=== PATIENT | female | born 1975 | race Caucasian/White ===

== ENCOUNTER → 2016-07-09 | Outpatient (CLI) | payer MEDICARE, OTHER | END | disposition home or self-care (01) | DX: Z53.9 Procedure and treatment not carried out, unspecified reason (principal) ==

== ENCOUNTER → 2016-07-10 | Outpatient (CLI) | payer MEDICARE, OTHER ==
[2016-07-10 11:46] LABS: ALT 28 U/L (9-52); AST 13 U/L (14-36); Alkaline Phosphatase 41 U/L (38-126); Anion Gap 12 mmol/L; Blood Urea Nitrogen 9 mg/dL (7-17); Carbamazepine (Tegretol) <3.0 ug/mL; Carbon Dioxide 25 mmol/L (22-30); Chloride 107 mmol/L (98-107); Glucose 96 mg/dL (74-99); Non-African American GFR(MDRD) >60 (>60 ml/min/1.73 sqM); Potassium 4.1 mmol/L (3.5-5.1); Sodium 144 mmol/L (137-145); Total Bilirubin 0.4 mg/dL (0.2-1.3); Total Protein 6.7 g/dL (6.3-8.2)
[2016-07-10 12:32] LABS: Vitamin B12 463 pg/mL (239-931)
== END | disposition home or self-care (01) ==
LOC: LABWHC1 11:03
PROVIDERS: ATTEND Nurse Practitioner Acute Care
DX: R56.9 Unspecified convulsions (principal); E55.9 Vitamin D deficiency, unspecified
CPT/HCPCS: 36415; 80053; 80156; 80201; 82306; 82607

== ENCOUNTER → 2016-09-23 | Outpatient (CLI) | payer MEDICARE, OTHER ==
--- NOTE | 2016-09-23 20:30 | MR ---
EXAMINATION TYPE: MR angio head wo con DATE OF EXAM: 09/23/2016 8:23 PM COMPARISON: NONE HISTORY: Left side weakness and numbness, tia Three-dimensional [id number] intracranial MRA was performed with multiple intensity projection im ages submitted and source data reviewed at the workstation. The vertebrobasilar system as well as intracranial portions of the internal carotid arteries and thei r major tributaries are patent. I do not see evidence for sizable aneurysm or vascular malformation. IMPRESSION: No distinct abnormality identified.
--- NOTE | 2016-09-23 21:23 | MR ---
PRE AND POSTCONTRAST ENHANCED MRI OF THE BRAIN: CLINICAL HISTORY: TIA symptoms CONTRAST: 20 ML Multihance COMPARISON: 02/11/2016 Multiplanar and multispin-echo imaging of the brain was performed both before and after the administr ation of contrast. The ventricles, basal cisterns and sulci overlying the cerebral convexities are within normal limits. There is no evidence for midline shift or mass effect. Acute intracranial hemorrhage or extra-axial collection is not evident. Stable cystic structure within the left insular cortex which may reflect remote insult. Following contrast administration, there is no evidence for pathologic enhancement or enhancing mass. The paranasal sinuses and mastoid air cells are well-aerated. IMPRESSION: Stable appearance of the brain without evidence for acute intracranial process at this time.
== END | disposition home or self-care (01) ==
LOC: RADMRIMAIN 19:37
PROVIDERS: ATTEND Family Medicine
DX: G45.9 Transient cerebral ischemic attack, unspecified (principal)
CPT/HCPCS: 70544; 70553; A9577

== ENCOUNTER 2016-10-21 13:51 | Observation (INO) | payer MEDICARE, OTHER ==
[2016-10-21] MEDS ORDERED: SODIUM CHLORIDE 0.9% 1,000 ML IV STA ×2 (13:59→14:07)
[2016-10-21] MEDS ORDERED: LORazepam 2 MG/ML SYRINGE IV STA (14:01)
--- NOTE | 2016-10-21 14:06 | ED ---
Seizure HPI - General Stated Complaint: Seizure Time Seen by Provider: 10/21/16 13:52 Source: RN notes reviewed, old records reviewed - History of Present Illness Initial Comments: This is a 41-year-old female history of CVA TIA seizure disorder who is brought in by family vehicle and found to be seizing apparently in the car was last about 2 minutes prior to arrival in the parking lot. Patient brought in immediately to room 15. She appeared to be acting post ictal she also then had an episode of what appeared to be seizure activity lasting about 1 minute with eyes rolling back twitching eyelids and sitting up in the extremities. The patient quickly woke up on over about 5 minutes. It was conversant afterwards. MD Complaint: seizure - Related Data Home Medications Medication Instructions Recorded Confirmed LORazepam [Ativan] 1 mg PO DAILY PRN 08/24/15 10/21/16 HYDROcodone/APAP 5-325MG [[place] 1 tab PO BID 02/02/16 10/21/16 5-325] Naproxen 500 mg PO BID PRN 02/02/16 10/21/16 Desvenlafaxine Succinate [Pristiq 50 mg PO DAILY 02/21/16 10/21/16 ER] Albuterol Sulfate [Ventolin Hfa] 2 puff INHALATION RT-QID PRN 10/21/16 10/21/16 Butalb/Asprin/Caff 50-325-40Mg 1 cap PO Q8H PRN 10/21/16 10/21/16 [Fiorinal 50-325-40 MG] Ergocalciferol [Vitamin D2] 50,000 unit PO Q7D 10/21/16 10/21/16 Lacosamide [Vimpat] 200 mg PO BID 10/21/16 10/21/16 OXcarbazepine [Trileptal] 600 mg PO BID 10/21/16 10/21/16 Topiramate [Topamax] 100 mg PO BID 10/21/16 10/21/16 Previous Rx's Medication Instructions Recorded Clopidogrel [Plavix] 75 mg PO DAILY #30 tab 02/24/16 Allergies Allergy/AdvReac Type Severity Reaction Status Date / Time adhesive Allergy Unknown Verified 04/26/16 22:14 aloe Allergy Unknown Verified 04/26/16 22:14 aloe vera Allergy Unknown Verified 04/26/16 22:14 carbetapentane Allergy Unknown Verified 04/26/16 22:14 castor oil Allergy Unknown Verified 04/26/16 22:14 citalopram hydrobromide Allergy Rash/Hives Verified 04/26/16 22:14 [From Celexa] diethylene glycol Allergy Unknown Verified 04/26/16 22:14 dimethicone Allergy Unknown Verified 04/26/16 22:14 grape Allergy Unknown Verified 04/26/16 22:14 Imidazole Alkylating Agents Allergy Unknown Verified 04/26/16 22:14 iodine Allergy Unknown Verified 04/26/16 22:14 Iodine and Iodide Containing Allergy Unknown Verified 04/26/16 22:14 Produc olive extract Allergy Unknown Verified 04/26/16 22:14 olive oil Allergy Unknown Verified 04/26/16 22:14 Penicillins Allergy Rash/Hives Verified 04/26/16 22:14 polyethylene glycol Allergy Unknown Verified 04/26/16 22:14 potassium Allergy Unknown Verified 04/26/16 22:14 propylene glycol Allergy Unknown Verified 04/26/16 22:14 silicone Allergy Unknown Verified 04/26/16 22:14 sorbitan sesquioleate Allergy Unknown Verified 04/26/16 22:14 [From Polysorb Hydrate] tioconazole Allergy Rash/Hives Verified 04/26/16 22:14 [From Monistat 1 (tioconazole)] vitamin E (d-alpha Allergy Unknown Verified 04/26/16 22:14 tocopherol) Review of Systems ROS Statement: Those systems with pertinent positive or pertinent negative responses have been documented in the HPI. ROS Other: All systems not noted in ROS Statement are negative. Past Medical History Past Medical History: Asthma, CVA/TIA, Fibromyalgia, Pneumonia, Seizure Disorder Additional Past Medical History / Comment(s): CHRONIC PAIN, UTI, HYPOGLYCEMIA, DDD, MIGARINES, PSEUDOSEIZURES History of Any Multi-Drug Resistant Organisms: None Reported Past Surgical History: Tubal Ligation Additional Past Surgical History / Comment(s): RT OVARIAN CYST REMOVED 1993 Past Anesthesia/Blood Transfusion Reactions: No Reported Reaction Additional Past Anesthesia/Blood Transfusion Reaction / Comment(s): CLAUSTERPHOBIA Past Psychological History: Anxiety, Bipolar, Depression Smoking Status: Current every day smoker Past Alcohol Use History: Rare Additional Past Alcohol Use History / Comment(s): STARTED SMOKING AT AGE 13, ROLLS HER OWN STATED SMOKES THE EQUIVALENT OF 1.5 TO 2 PPD Past Drug Use History: None Reported - Past Family History Father Family Medical History: CVA/TIA Mother Family Medical History: Hypertension, Seizure Disorder Additional Family Medical History / Comment(s): HEART PROBLEMS, DEPRESSION General Exam - General Exam Comments Initial Comments: This is a well-developed well-nourished female who was upon my exam was apparently seizing Limitations: altered mental status, physical limitation General appearance: obtunded Head exam: Present: atraumatic, normocephalic, normal inspection Eye exam: Present: normal appearance, PERRL, EOMI. Absent: scleral icterus, conjunctival injection, periorbital swelling ENT exam: Present: normal exam, mucous membranes moist Neck exam: Present: normal inspection. Absent: tenderness, meningismus, lymphadenopathy Respiratory exam: Present: normal lung sounds bilaterally. Absent: respiratory distress, wheezes, rales, rhonchi, stridor Cardiovascular Exam: Present: regular rate, normal rhythm, normal heart sounds. Absent: systolic murmur, diastolic murmur, rubs, gallop, clicks GI/Abdominal exam: Present: soft, normal bowel sounds. Absent: distended, tenderness, guarding, rebound, rigid Extremities exam: Present: normal inspection, full ROM, normal capillary refill. Absent: tenderness, pedal edema, joint swelling, calf tenderness Back exam: Present: normal inspection Neurological exam: Present: alert, altered, CN II-XII intact, other (Seizure activity) Psychiatric exam: Present: normal affect, normal mood Skin exam: Present: warm, dry, intact, normal color. Absent: rash Course Vital Signs 10/21/16 10/21/16 10/21/16 14:03 15:26 16:00 Temperature 98.8 F Pulse Rate 82 99 96 Respiratory 20 18 16 Rate Blood Pressure 139/72 96/54 96/54 O2 Sat by Pulse 100 98 99 Oximetry - Reevaluation(s) Reevaluation #1: 10/21/16 16:57 Patient is awake alert but lethargic. Medical Decision Making - Medical Decision Making I did discuss findings with patient and family members patient will be admitted with neurology consultation the patient does prefer Dr. Davis if possible. - Lab Data Result diagrams: 10/21/16 14:00 10/21/16 14:00 Lab Results 05/10/21/16 10/21/16 Range/Units 14:00 14:00 14:30 WBC 9.5 (3.8-10.6) k/uL RBC 4.77 (3.80-5.40) m/uL Hgb 14.6 (11.4-16.0) gm/dL Hct 44.2 (34.0-46.0) % MCV 92.6 (80.0-100.0) fL MCH 30.6 (25.0-35.0) pg MCHC 33.0 (31.0-37.0) g/dL RDW 13.3 (11.5-15.5) % Plt Count 264 (150-450) k/uL Neutrophils % 68 % Lymphocytes % 26 % Monocytes % 4 % Eosinophils % 1 % Basophils % 0 % Neutrophils # 6.4 (1.3-7.7) k/uL Lymphocytes # 2.5 (1.0-4.8) k/uL Monocytes # 0.4 (0-1.0) k/uL Eosinophils # 0.1 (0-0.7) k/uL Basophils # 0.0 (0-0.2) k/uL Sodium 139 (137-145) mmol/L Potassium 3.9 (3.5-5.1) mmol/L Chloride 108 H (98-107) mmol/L Carbon Dioxide 23 (22-30) mmol/L Anion Gap 8 mmol/L BUN 7 (7-17) mg/dL Creatinine 0.66 (0.52-1.04) mg/dL Est GFR (MDRD) Af Amer >60 (>60 ml/min/1.73 sqM) Est GFR (MDRD) Non-Af >60 (>60 ml/min/1.73 sqM) Glucose 94 (74-99) mg/dL Calcium 9.0 (8.4-10.2) mg/dL Total Bilirubin 0.5 (0.2-1.3) mg/dL AST 17 (14-36) U/L ALT 23 (9-52) U/L Alkaline Phosphatase 45 (38-126) U/L Total Protein 6.2 L (6.3-8.2) g/dL Albumin 3.8 (3.5-5.0) g/dL Urine Color Light Yellow Urine Appearance Clear (Clear) Urine pH 7.0 (5.0-8.0) Ur Specific [place] 1.002 (1.001-1.035) Urine Protein Negative (Negative) Urine Glucose (UA) Negative (Negative) Urine Ketones Negative (Negative) Urine Blood Negative (Negative) Urine Nitrite Negative (Negative) Urine Bilirubin Negative (Negative) Urine Urobilinogen <2.0 (<2.0) mg/dL Ur Leukocyte Esterase Negative (Negative) Urine HCG, Qual (Not Detectd) Salicylates <1.0 mg/dL Urine Opiates Screen Detected H (NotDetected) Ur Oxycodone Screen Not Detected (NotDetected) Urine Methadone Screen Not Detected (NotDetected) Ur Propoxyphene Screen Not Detected (NotDetected) Acetaminophen <10.0 ug/mL Ur Barbiturates Screen Not Detected (NotDetected) U Tricyclic Antidepress Not Detected (NotDetected) Ur Phencyclidine Scrn Not Detected (NotDetected) Ur Amphetamines Screen Not Detected (NotDetected) U Methamphetamines Scrn Not Detected (NotDetected) U Benzodiazepines Scrn Not Detected (NotDetected) Urine Cocaine Screen Not Detected (NotDetected) U Marijuana (THC) Screen Not Detected (NotDetected) Serum Alcohol <10 mg/dL 10/21/16 Range/Units 14:30 WBC (3.8-10.6) k/uL RBC (3.80-5.40) m/uL Hgb (11.4-16.0) gm/dL Hct (34.0-46.0) % MCV (80.0-100.0) fL MCH (25.0-35.0) pg MCHC (31.0-37.0) g/dL RDW (11.5-15.5) % Plt Count (150-450) k/uL Neutrophils % % Lymphocytes % % Monocytes % % Eosinophils % % Basophils % % Neutrophils # (1.3-7.7) k/uL Lymphocytes # (1.0-4.8) k/uL Monocytes # (0-1.0) k/uL Eosinophils # (0-0.7) k/uL Basophils # (0-0.2) k/uL Sodium (137-145) mmol/L Potassium (3.5-5.1) mmol/L Chloride (98-107) mmol/L Carbon Dioxide (22-30) mmol/L Anion Gap mmol/L BUN (7-17) mg/dL Creatinine (0.52-1.04) mg/dL Est GFR (MDRD) Af Amer (>60 ml/min/1.73 sqM) Est GFR (MDRD) Non-Af (>60 ml/min/1.73 sqM) Glucose (74-99) mg/dL Calcium (8.4-10.2) mg/dL Total Bilirubin (0.2-1.3) mg/dL AST (14-36) U/L ALT (9-52) U/L Alkaline Phosphatase (38-126) U/L Total Protein (6.3-8.2) g/dL Albumin (3.5-5.0) g/dL Urine Color Urine Appearance (Clear) Urine pH (5.0-8.0) Ur Specific [place] (1.001-1.035) Urine Protein (Negative) Urine Glucose (UA) (Negative) Urine Ketones (Negative) Urine Blood (Negative) Urine Nitrite (Negative) Urine Bilirubin (Negative) Urine Urobilinogen (<2.0) mg/dL Ur Leukocyte Esterase (Negative) Urine HCG, Qual Not Detected (Not Detectd) Salicylates mg/dL Urine Opiates Screen (NotDetected) Ur Oxycodone Screen (NotDetected) Urine Methadone Screen (NotDetected) Ur Propoxyphene Screen (NotDetected) Acetaminophen ug/mL Ur Barbiturates Screen (NotDetected) U Tricyclic Antidepress (NotDetected) Ur Phencyclidine Scrn (NotDetected) Ur Amphetamines Screen (NotDetected) U Methamphetamines Scrn (NotDetected) U Benzodiazepines Scrn (NotDetected) Urine Cocaine Screen (NotDetected) U Marijuana (THC) Screen (NotDetected) Serum Alcohol mg/dL - EKG Data -: EKG Interpreted by Me EKG shows normal: sinus rhythm (EKG done on the patient with a heart rate of 110 tachycardia NH interval 154 QRS duration 84 daily since QTC of 338/457 and normal QRS-T angle no acute elevations or depressions) Disposition Clinical Impression: Seizure disorder, Generalized seizure Disposition: ADMITTED IP TO THIS HOSP Condition: Stable Referrals: Balwinder Lozano MD [Primary Care Provider] - 1-2 days
[2016-10-21 14:33] LABS: Basophils % (A) 0 %; CH 31.1; CHCM 33.7; Eosinophils # (A) 0.1 k/uL (0-0.7); Eosinophils % (A) 1 %; HCT 44.2 % (34.0-46.0); HDW 2.27; HGB 14.6 gm/dL (11.4-16.0); Luc # (Auto) 0.15; Luc % (Auto) 2; Lymphocytes # (A) 2.5 k/uL (1.0-4.8); Lymphocytes % (A) 26 %; MCH 30.6 pg (25.0-35.0); MCV 92.6 fL (80.0-100.0); Mean Platelet Volume 7.2; Monocytes # (A) 0.4 k/uL (0-1.0); Monocytes % (A) 4 %; Neutrophils # (A) 6.4 k/uL (1.3-7.7); Neutrophils % (A) 68 %; RBC 4.77 m/uL (3.80-5.40); RDW 13.3 % (11.5-15.5); WBC 9.5 k/uL (3.8-10.6); WBC (Perox) 9.73
[2016-10-21 14:39] LABS: Appearance,Urine Clear (Clear); Bilirubin,Urine Negative (Negative); Glucose,Urine (UA) Negative (Negative); Ketones,Urine Negative (Negative); Leukocyte Esterase,Urine Negative (Negative); Nitrite,Urine Negative (Negative); Protein,Urine Negative (Negative); Specific Gravity,Urine 1.002 (1.001-1.035); UA Billing (MACRO vs. MICRO) CHEM; Urobilinogen,Urine <2.0 mg/dL (<2.0)
[2016-10-21 14:41] LABS: ALT 23 U/L (9-52); AST 17 U/L (14-36); Acetaminophen <10.0 ug/mL; Alcohol <10 mg/dL; Alkaline Phosphatase 45 U/L (38-126); Anion Gap 8 mmol/L; Blood Urea Nitrogen 7 mg/dL (7-17); Carbon Dioxide 23 mmol/L (22-30); Chloride 108 mmol/L (98-107); Glucose 94 mg/dL (74-99); Non-African American GFR(MDRD) >60 (>60 ml/min/1.73 sqM); Potassium 3.9 mmol/L (3.5-5.1); Salicylate <1.0 mg/dL; Sodium 139 mmol/L (137-145); Total Bilirubin 0.5 mg/dL (0.2-1.3); Total Protein 6.2 g/dL (6.3-8.2)
[2016-10-21 16:28] VITALS: RESP 16
[2016-10-21] MEDS ORDERED: NALOXONE 0.4 MG/ML 1 ML VIAL IV PRN (16:59)
[2016-10-21] MEDS ORDERED: SODIUM CHLORIDE 0.9% 1,000 ML IV SCH (17:00)
[2016-10-21] MEDS ORDERED: NAPROXEN 250 MG TAB PO PRN (17:01)
[2016-10-21] MEDS ORDERED: ALBUTEROL NEBULIZED 2.5 MG/3 ML INHALATION PRN (17:01)
[2016-10-21] MEDS ORDERED: LORazepam 1 MG TAB PO PRN (17:01)
[2016-10-21] MEDS ORDERED: ERGOCALCIFEROL 50,000 UNIT CAP PO SCH (17:15)
--- NOTE | 2016-10-21 17:43 | CT ---
EXAMINATION TYPE: CT brain wo con DATE OF EXAM: 10/21/2016 5:08 PM COMPARISON: 02/21/2016 HISTORY: Seizure today. Hx of seizures. CT DLP: 945.5 mGycm Automated exposure control for dose reduction was used. FINDINGS: The ventricles and sulci appear normal. There is no mass effect nor midline shift. There is no sign o f intracranial hemorrhage. The calvarium is intact. IMPRESSION: Negative unenhanced head CT scan. No change.
[2016-10-21 17:47] VITALS: BP 119/59; PULSE 82; TEMP 98.8
--- NOTE | 2016-10-21 18:28 | XR ---
EXAMINATION TYPE: XR chest 1V portable DATE OF EXAM: 10/21/2016 6:00 PM COMPARISON: 02/21/2016 HISTORY: Seizure today TECHNIQUE: Single frontal view of the chest is obtained. FINDINGS: Heart and mediastinum are normal. Lungs are clear. Diaphragm is normal. There are chest le ads. Bony thorax is intact. IMPRESSION: Normal chest. No change.
[2016-10-21] MEDS ORDERED: LACOSAMIDE 50 MG TABLET PO SCH (21:00)
[2016-10-21] MEDS ORDERED: HYDROcodone/APAP 5-325MG 1 EACH TAB PO SCH (21:00)
[2016-10-21] MEDS ORDERED: OXcarbazepine 300 MG TAB PO SCH (21:00)
[2016-10-21] MEDS ORDERED: TOPIRAMATE 100 MG TAB PO SCH (21:00)
[2016-10-22] MEDS ORDERED: DESVENLAFAXINE SUCCINATE 50 MG TAB.ER.24H PO SCH (09:00)
[2016-10-22] MEDS ORDERED: CLOPIDOGREL 75 MG TAB PO SCH (09:00)
== END 2016-10-21 19:50 | disposition left against medical advice (07) ==
LOC: EC 13:51 → 3OBS 16:59
PROVIDERS: ADMIT Family Medicine; ATTEND Family Medicine
DX: G40.909 Epilepsy, unspecified, not intractable, without status epilepticus (principal); F41.9 Anxiety disorder, unspecified; J45.909 Unspecified asthma, uncomplicated; M79.7 Fibromyalgia; G89.4 Chronic pain syndrome; G43.909 Migraine, unspecified, not intractable, without status migrainosus; F31.9 Bipolar disorder, unspecified; F17.200 Nicotine dependence, unspecified, uncomplicated; Z79.899 Other long term (current) drug therapy; Z79.891 Long term (current) use of opiate analgesic; Z88.3 Allergy status to other anti-infective agents; Z88.0 Allergy status to penicillin; Z88.8 Allergy status to other drugs, medicaments and biological substances; Z91.018 Allergy to other foods; Z91.048 Other nonmedicinal substance allergy status; Z82.49 Family history of ischemic heart disease and other diseases of the circulatory system; Z86.73 Personal history of transient ischemic attack (TIA), and cerebral infarction without residual deficits; Z87.01 Personal history of pneumonia (recurrent)
CPT/HCPCS: 99285; 36415; 93005; 80053; 85025; 81003; 81025; 80306; 83520 ×2; 80320; 71010; 70450; 96374; 96361 ×2; G0378; J2060

== ENCOUNTER 2016-10-21 21:30 | Observation (INO) | payer MEDICARE, OTHER ==
--- NOTE | 2016-10-21 22:07 | ED ---
General Adult HPI - General Chief complaint: Seizure Stated complaint: revisit seizure Time Seen by Provider: 10/21/16 21:40 Source: patient, family, RN notes reviewed, old records reviewed Mode of arrival: ambulatory Limitations: no limitations - History of Present Illness Initial comments: Chief complaint and history of present illness a 41-year-old female who reportedly had a seizure en route. The patient was in the emergency room earlier today was admitted to the hospital at having had 2 seizures. She decided to sign out because she wanted take care of her children. She has since decided that to come back to the hospital. On the way back to the Hospital see had a seizure. These are seizures the last a minute and her family or friends described as shaking all over. - Related Data Home Medications Medication Instructions Recorded Confirmed LORazepam [Ativan] 1 mg PO DAILY PRN 08/24/15 10/21/16 HYDROcodone/APAP 5-325MG [[place] 1 tab PO BID 02/02/16 10/21/16 5-325] Naproxen 500 mg PO BID PRN 02/02/16 10/21/16 Albuterol Sulfate [Ventolin Hfa] 2 puff INHALATION RT-QID PRN 10/21/16 10/21/16 Butalb/Asprin/Caff 50-325-40Mg 1 cap PO Q8H PRN 10/21/16 10/21/16 [Fiorinal 50-325-40 MG] Ergocalciferol [Vitamin D2] 50,000 unit PO Q7D 10/21/16 10/21/16 Lacosamide [Vimpat] 200 mg PO BID 10/21/16 10/21/16 OXcarbazepine [Trileptal] 600 mg PO BID 10/21/16 10/21/16 Previous Rx's Medication Instructions Recorded Clopidogrel [Plavix] 75 mg PO DAILY #30 tab 02/24/16 Allergies Allergy/AdvReac Type Severity Reaction Status Date / Time adhesive Allergy Unknown Verified 10/21/16 21:51 aloe Allergy Unknown Verified 10/21/16 21:51 aloe vera Allergy Unknown Verified 10/21/16 21:51 carbetapentane Allergy Unknown Verified 10/21/16 21:51 castor oil Allergy Unknown Verified 10/21/16 21:51 citalopram hydrobromide Allergy Rash/Hives Verified 10/21/16 21:51 [From Celexa] diethylene glycol Allergy Unknown Verified 10/21/16 21:51 dimethicone Allergy Unknown Verified 10/21/16 21:51 grape Allergy Unknown Verified 10/21/16 21:51 Imidazole Alkylating Agents Allergy Unknown Verified 10/21/16 21:51 iodine Allergy Unknown Verified 10/21/16 21:51 Iodine and Iodide Containing Allergy Unknown Verified 10/21/16 21:51 Produc olive extract Allergy Unknown Verified 10/21/16 21:51 olive oil Allergy Unknown Verified 10/21/16 21:51 Penicillins Allergy Rash/Hives Verified 10/21/16 21:51 polyethylene glycol Allergy Unknown Verified 10/21/16 21:51 potassium Allergy Unknown Verified 10/21/16 21:51 propylene glycol Allergy Unknown Verified 10/21/16 21:51 silicone Allergy Unknown Verified 10/21/16 21:51 sorbitan sesquioleate Allergy Unknown Verified 10/21/16 21:51 [From Polysorb Hydrate] tioconazole Allergy Rash/Hives Verified 10/21/16 21:51 [From Monistat 1 (tioconazole)] vitamin E (d-alpha Allergy Unknown Verified 10/21/16 21:51 tocopherol) Review of Systems ROS Statement: Those systems with pertinent positive or pertinent negative responses have been documented in the HPI. review of systems. Currently no headache chest pain no visual acuity changes. The patient was in hospital earlier today signed out AGAINST MEDICAL ADVICE because she stated she wanted to go home take care of her children. Has since returned this evening to get readmitted.review of previous charts plan the patient having a diagnosis made of pseudoseizures. I 1 occasion patient was in the emergency room stating that her right arm didn't work and then she was asked to point where the pain was on her left shoulder and she picked up the flaccid arm and put it on the area in question. It was then brought to her attention that she was moving the arm which she could not move just one second before she dropped back down to her side and said it was still tingly. The patient signed out AGAINST MEDICAL ADVICE on that ER visit as well. no GI/ complaints no neuro deficits at this time. All systems reviewed are negative. Past medical problems significant forAsthma the patient does smoke strongly encouraged stop. The patient has had history of TIA, fibromyalgia chronic back pain for which she takes Ativan and [place]. The patient also has had seizures for over 2 years which he takes Trileptal and Vimpat. The patient' s surgeries none family history cancers include lung pelvic cancer and breast cancer. Patient doesn't smoke strongly encouraged stop denies alcohol use. ROS Other: All systems not noted in ROS Statement are negative. Past Medical History Past Medical History: Asthma, CVA/TIA, Fibromyalgia, Pneumonia, Seizure Disorder Additional Past Medical History / Comment(s): CHRONIC PAIN, UTI, HYPOGLYCEMIA, DDD, MIGARINES, PSEUDOSEIZURES History of Any Multi-Drug Resistant Organisms: None Reported Past Surgical History: Tubal Ligation Additional Past Surgical History / Comment(s): RT OVARIAN CYST REMOVED 1993 Past Anesthesia/Blood Transfusion Reactions: No Reported Reaction Additional Past Anesthesia/Blood Transfusion Reaction / Comment(s): CLAUSTERPHOBIA Past Psychological History: Anxiety, Bipolar, Depression Smoking Status: Current every day smoker Past Alcohol Use History: Rare Additional Past Alcohol Use History / Comment(s): STARTED SMOKING AT AGE 13, ROLLS HER OWN STATED SMOKES THE EQUIVALENT OF 1.5 TO 2 PPD Past Drug Use History: None Reported - Past Family History Father Family Medical History: CVA/TIA Mother Family Medical History: Hypertension, Seizure Disorder Additional Family Medical History / Comment(s): HEART PROBLEMS, DEPRESSION General Exam - General Exam Comments Initial Comments: General: The patient is awake and alert, in no distress, and does not appear acutely ill. states she had a seizure witnessed by her 2 friends. Signs temp 99.3 pulse 99 respiratory rate 18 pulse ox 90% room air blood pressure 142/80 Eye: Pupils are equal, round and reactive to light, extra-ocular movements are intact ; there is normal conjunctiva bilaterally. No signs of icterus. Ears, nose, mouth and throat: There are moist mucous membranes and no oral lesions. Neck: The neck is supple, there is no tenderness . Cardiovascular: There is a regular rate and rhythm. No murmur, rub or gallop is appreciated. Respiratory: Lungs are clear to auscultation, respirations are non-labored, breath sounds are equal. No wheezes, stridor, rales, or rhonchi. Gastrointestinal: Soft, non-distended, non-tender abdomen without masses or organomegaly noted. There is no rebound or guarding present. No CVA tenderness. Bowel sounds are unremarkable. Back: There is no tenderness to palpation in the midline. There is no obvious deformity. No rashes noted. Musculoskeletal: Normal ROM, no tenderness, There is no pedal edema. There is no calf tenderness or swelling. Sensation intact. Pulses equal bilaterally 2+. Neurological: CN II-XII intact, There are no obvious motor or sensory deficits. Coordination appears grossly intact. Speech is normal.no focal or lateralizing findings Skin: Skin is warm and dry and no rashes or lesions are noted. Psychiatric: past history of claustrophobia, anxiety bipolar depression. Limitations: no limitations Course Vital Signs 10/21/16 21:37 Temperature 99.3 F Pulse Rate 99 Respiratory 18 Rate Blood Pressure 142/80 O2 Sat by Pulse 98 Oximetry Medical Decision Making - Medical Decision Making the patient will be admitted with consultation from her neurologist. Disposition Clinical Impression: Seizure disorder Disposition: ADMITTED IP TO THIS HOSP Condition: Good Referrals: Balwinder Lozano MD [Primary Care Provider] - 1-2 days
[2016-10-21] MEDS ORDERED: LORazepam 2 MG/ML SYRINGE IV PRN (22:08)
[2016-10-21] MEDS ORDERED: NALOXONE 0.4 MG/ML 1 ML VIAL IV PRN (22:08)
[2016-10-21] MEDS ORDERED: NAPROXEN 250 MG TAB PO PRN (22:14)
[2016-10-21] MEDS ORDERED: ALBUTEROL NEBULIZED 2.5 MG/3 ML INHALATION PRN (22:14)
[2016-10-21 22:53] VITALS: BMI 29.2
[2016-10-21] MEDS: SODIUM CHLORIDE 0.9% 1,000 ML IV SCH ×2 (23:21→23:23)
[2016-10-21] MEDS: OXcarbazepine 300 MG TAB PO SCH (23:21)
[2016-10-22] MEDS: CLOPIDOGREL 75 MG TAB PO SCH ×2 (00:12→10:03)
[2016-10-22] MEDS ORDERED: NICOTINE 21MG/24HR PATCH TRANSDERM SCH (00:13)
[2016-10-22] MEDS: LACOSAMIDE 50 MG TABLET PO SCH ×2 (00:13→11:41)
[2016-10-22] MEDS: HYDROcodone/APAP 5-325MG 1 EACH TAB PO SCH ×2 (00:47→10:03)
[2016-10-22] MEDS: NICOTINE 14MG/24HR PATCH TRANSDERM SCH ×2 (01:09→10:03)
[2016-10-22] MEDS ORDERED: OXcarbazepine 300 MG TAB PO SCH (09:00)
[2016-10-22] MEDS ORDERED: LORazepam 1 MG TAB PO PRN (09:00)
[2016-10-22] MEDS ORDERED: CLOPIDOGREL 75 MG TAB PO SCH (09:00)
[2016-10-22] MEDS ORDERED: LACOSAMIDE 50 MG TABLET PO SCH (09:00)
[2016-10-22] MEDS: OXcarbazepine 300 MG TAB PO SCH (10:03)
[2016-10-22] MEDS: SODIUM CHLORIDE 0.9% 1,000 ML IV SCH ×2 (11:44→15:12)
[2016-10-22 12:36] VITALS: BP 109/62; PULSE 88; RESP 16; TEMP 98.5
--- NOTE | 2016-10-22 21:14 | HP ---
DATE OF ADMISSION: 10/21/2016 ADMISSION AND DISCHARGE SUMMARY: REASON FOR ADMISSION: Seizures. HISTORY OF PRESENT ILLNESS: This is a 41-year-old female who comes in the hospital with 2 seizures. Patient apparently was in the emergency room on 10/21/2016 however, left AGAINST MEDICAL ADVICE. Patient sees Dr. Mariam Davis for her seizure control. Currently is on Vimpat and Trileptal for prevention of seizures. However, patient states that she has undergone multiple EEGs with the description of her seizure activity was it was diagnosed as a pseudoseizure. Patient apparently has a remote history of generalized tonic-clonic seizures since and hence is maintained on ( ) at this time. Overnight, the patient had two witnessed seizures, including in the hospital. Patient was awake during the seizure with generalized shaking movement. Patient did not lose her consciousness, did not lose control of bowel or bladder or was there any tongue biting during this episode. Patient states that she does understand that her seizures are induced by her stress and they are induced with stress and anxiety. Patient states that she does understand two break her seizures with oral Ativan. Patient states that she has been undergoing a lot of stress at home including some familial issues in the recent time. At the time of my evaluation states to be doing well, was able to ambulate without much difficulty, has not had any repeat episodes in the last 20 hours. Fourteen-point review of system was done; none pertinent other than what was mentioned above. Home medications include: 1. Ativan. 2. [place]. 3. Naprosyn. 4. Ventolin. 5. Fiorinal. 6. Vitamin B2. 7. Vimpat. 8. Trileptal. 9. Plavix as well. Those were reviewed and appropriately reconciled. ALLERGIES: Multiple including: ADHESIVES, ALOE, CARBAPENTINE, CASTOR OIL, CELEXA, ( ) ( ), IODINE, OLIVE OIL, PENICILLIN, POLYETHYLENE GLYCOL, POTASSIUM PROPYLENE GLYCOL, SILICONE, SORBENTANE, TIOCONAZOLE AND VITAMIN E. Past medical history includes asthma, TIA, fibromyalgia, pneumonia, anxiety, pseudoseizures. Past surgical history includes tubal ligation and ovarian cyst removed. SOCIAL HISTORY: Smokes daily. Denies any illicit drug use or alcohol use. FAMILY HISTORY: Not pertinent to current admission. PHYSICAL EXAMINATION: Vitals today were reviewed and were within normal limits. GENERALLY: Patient appears to be alert, oriented x3. HEENT: The pupils are equal and reactive to light and accommodation. HEART: S1, S2 present. No murmur appreciated. LUNGS: Good air entry. No wheezing or rhonchi noted. ABDOMINAL EXAM: Soft, nontender, no organomegaly appreciated. GENITOURINARY: No Arthur in place. EXTREMITIES: Pulses can be palpated distally. Denies any tenderness on gross palpation. SKIN: On a gross skin exam does not appear to have any purpura or any skin rashes that were noted. NEUROLOGICALLY: Grossly cranial nerves 2-12 intact. No motor or sensory deficits noted. Laboratory data from the recent admission include hemoglobin 14.8, hematocrit 44.2, platelets of 264, white count 9.5. Sodium 139, potassium 3.9, chloride 108, bicarb 20. BUN 7, creatinine 0.66. TSH was 3.7, test is negative ASSESSMENT AND PLAN: 1. Pseudoseizures. 2. Anxiety and depression. 3. Ongoing tobacco use. 4. Vitamin D insufficiency. 5. Transient ischemic attack. 6. Fibromyalgia. 7. Chronic back pain. PLAN: Patient has pseudoseizures. This does not require admission to the hospital. This was previously diagnosed. I did discuss in regards to control of the current seizure activity. The patient understands to take Ativan. There is no need for readmission of this patient. Pseudoseizures do not cause permanent brain damage. Patient always ( ). Patient does verbalize to understanding in regard to controlling her stress in order to prevent these activities in the future. Patient does have a follow-up appointment with Dr. Davis on Thursday. Discussed followed up as an outpatient. Will discharge with the patient at this time. Continue with all over the same medications as discussed in admission. Smoking cessation was also discussed.
[2016-10-26] MEDS ORDERED: ERGOCALCIFEROL 50,000 UNIT CAP PO SCH (09:00)
== END 2016-10-22 15:20 | disposition home or self-care (01) ==
LOC: EC 21:30 → 3OBS 22:08
PROVIDERS: ADMIT Family Medicine; ATTEND Family Medicine
DX: F44.5 Conversion disorder with seizures or convulsions (principal); J45.909 Unspecified asthma, uncomplicated; M79.7 Fibromyalgia; F41.9 Anxiety disorder, unspecified; F32.9 Major depressive disorder, single episode, unspecified; E55.9 Vitamin D deficiency, unspecified; M54.9 Dorsalgia, unspecified; G89.29 Other chronic pain; Z79.899 Other long term (current) drug therapy; Z79.891 Long term (current) use of opiate analgesic; Z79.1 Long term (current) use of non-steroidal anti-inflammatories (NSAID); Z79.02 Long term (current) use of antithrombotics/antiplatelets; Z88.3 Allergy status to other anti-infective agents; F17.200 Nicotine dependence, unspecified, uncomplicated; Z86.73 Personal history of transient ischemic attack (TIA), and cerebral infarction without residual deficits; Z87.01 Personal history of pneumonia (recurrent)
CPT/HCPCS: 99285; 96374; 94640; G0378 ×2; S4990; J2060

== ENCOUNTER 2017-02-25 16:05 | Observation (INO) | payer MEDICARE, OTHER ==
[2017-02-25] MEDS ORDERED: SODIUM CHLORIDE 0.9% 1,000 ML IV STA (16:39)
[2017-02-25 17:07] LABS: Basophils % (A) 0 %; CH 30.5; Eosinophils # (A) 0.1 k/uL (0-0.7); Eosinophils % (A) 1 %; HDW 2.34; HGB 15.5 gm/dL (11.4-16.0); Luc # (Auto) 0.12; Luc % (Auto) 1; Lymphocytes # (A) 2.4 k/uL (1.0-4.8); Lymphocytes % (A) 29 %; MCH 31.3 pg (25.0-35.0); MCHC 33.8 g/dL (31.0-37.0); MCV 92.7 fL (80.0-100.0); Mean Platelet Volume 7.3; Monocytes # (A) 0.4 k/uL (0-1.0); Monocytes % (A) 5 %; Neutrophils # (A) 5.1 k/uL (1.3-7.7); Neutrophils % (A) 63 %; RBC 4.96 m/uL (3.80-5.40); RDW 12.6 % (11.5-15.5); WBC 8.2 k/uL (3.8-10.6); WBC (Perox) 8.23
[2017-02-25 17:10] LABS: Appearance,Urine Cloudy (Clear); Bilirubin,Urine Negative (Negative); Glucose,Urine (UA) Negative (Negative); Ketones,Urine Negative (Negative); Leukocyte Esterase,Urine Trace (Negative); Nitrite,Urine Negative (Negative); PH, Urine 5.5 (5.0-8.0); Particle Count 6898; Protein,Urine Negative (Negative); RBC,Urine 2 /hpf (0-5); Specific Gravity,Urine 1.014 (1.001-1.035); Squamous Epithelial Cell,Urine 15 /hpf (0-4); UA Billing (MACRO vs. MICRO) MICRO; Urobilinogen,Urine <2.0 mg/dL (<2.0); WBC,Urine 6 /hpf (0-5)
[2017-02-25 17:13] LABS: Partial Thromboplastin Time 23.9 sec (22.0-30.0)
--- NOTE | 2017-02-25 17:13 | CT ---
EXAMINATION TYPE: CT brain wo con DATE OF EXAM: 02/25/2017 COMPARISON: NONE HISTORY: Patient complains of right side weakness. CT DLP: 821.6 mGycm. Automated Exposure Control for Dose Reduction was Utilized. TECHNIQUE: CT scan of the head is performed without contrast. FINDINGS: Ventricles and sulci appear normal. There is no mass effect nor midline shift. There is no sign of intracranial hemorrhage. The calvarium is intact. IMPRESSION: Negative CT scan of the brain..
[2017-02-25 17:19] LABS: ALT 32 U/L (9-52); AST 15 U/L (14-36); Alkaline Phosphatase 56 U/L (38-126); Anion Gap 7 mmol/L; Blood Urea Nitrogen 8 mg/dL (7-17); Calcium 9.3 mg/dL (8.4-10.2); Carbon Dioxide 23 mmol/L (22-30); Chloride 110 mmol/L (98-107); Glucose 85 mg/dL (74-99); Non-African American GFR(MDRD) >60 (>60 ml/min/1.73 sqM); Phosphorus 4.7 mg/dL (2.5-4.5); Potassium 4.6 mmol/L (3.5-5.1); Sodium 140 mmol/L (137-145); Total Bilirubin 0.1 mg/dL (0.2-1.3)
[2017-02-25 17:29] LABS: Creatine Kinase 44 U/L (30-135)
[2017-02-25 17:35] LABS: INR 0.9 (<1.2); Prothrombin Time 9.4 sec (9.0-12.0)
[2017-02-25 17:41] LABS: Creatine Kinase MB 0.2 ng/mL (0.0-2.4); Troponin I <0.012 ng/mL (0.000-0.034)
--- NOTE | 2017-02-25 18:00 | ED ---
General Adult HPI - General Chief complaint: Neuro Symptoms/Deficit Stated complaint: Arm Numbness/Poss TIA Time Seen by Provider: 02/25/17 16:39 Source: patient, RN notes reviewed, old records reviewed Mode of arrival: ambulatory Limitations: no limitations - History of Present Illness Initial comments: This is a 41-year-old female the ER for evaluation. Face patient presents for evaluation regarding neurological complaint. Patient has history of CVA T TIA and seizure. She has follow-up with neurology. Patient complains of right arm weakness numbness, right-sided facial numbness. Altered mental state per family or friends. Patient started acting appropriately not remember things appropriate spacing out and sometimes passing out. Patient states her symptoms at this point her persistent which is what is making her worried - Related Data Home Medications Medication Instructions Recorded Confirmed HYDROcodone/APAP 5-325MG [[place] 1 tab PO BID 02/02/16 02/25/17 5-325] Naproxen 500 mg PO BID PRN 02/02/16 02/25/17 Albuterol Sulfate [Ventolin HFA] 2 puff INHALATION RT-QID PRN 10/21/16 02/25/17 Butalb/Asprin/Caff 50-325-40Mg 1 cap PO Q8H PRN 10/21/16 02/25/17 [Fiorinal 50-325-40 MG] Ergocalciferol [Vitamin D2 50,000 unit PO Q7D 10/21/16 02/25/17 (DRISDOL)] Lacosamide [Vimpat] 200 mg PO BID 10/21/16 02/25/17 OXcarbazepine [Trileptal] 600 mg PO BID 10/21/16 02/25/17 Topiramate [Trokendi Xr] 100 mg PO DAILY 02/25/17 02/25/17 Previous Rx's Medication Instructions Recorded Clopidogrel [Plavix] 75 mg PO DAILY #30 tab 02/24/16 Allergies Allergy/AdvReac Type Severity Reaction Status Date / Time adhesive Allergy Unknown Verified 10/21/16 21:51 aloe Allergy Unknown Verified 10/21/16 21:51 aloe vera Allergy Unknown Verified 10/21/16 21:51 carbetapentane Allergy Unknown Verified 10/21/16 21:51 castor oil Allergy Unknown Verified 10/21/16 21:51 citalopram hydrobromide Allergy Rash/Hives Verified 02/25/17 17:36 [From Celexa] diethylene glycol Allergy Unknown Verified 10/21/16 21:51 dimethicone Allergy Unknown Verified 10/21/16 21:51 grape Allergy Unknown Verified 10/21/16 21:51 Imidazole Alkylating Agents Allergy Unknown Verified 10/21/16 21:51 iodine Allergy Unknown Verified 02/25/17 16:18 Iodine and Iodide Containing Allergy Unknown Verified 02/25/17 16:18 Produc miconazole [From Monistat 3] Allergy Unknown Verified 02/25/17 17:36 olive extract Allergy Unknown Verified 02/25/17 16:18 olive oil Allergy Unknown Verified 02/25/17 16:18 Penicillins Allergy Rash/Hives Verified 02/25/17 17:36 polyethylene glycol Allergy Unknown Verified 02/25/17 16:18 potassium Allergy Unknown Verified 02/25/17 16:18 propylene glycol Allergy Unknown Verified 02/25/17 16:18 silicone Allergy Unknown Verified 02/25/17 16:18 skin cleanser combination Allergy Unknown Verified 02/25/17 17:36 no.17 [From Monistat 3] sorbitan sesquioleate Allergy Unknown Verified 02/25/17 16:18 [From Polysorb Hydrate] tioconazole Allergy Rash/Hives Verified 02/25/17 16:18 [From Monistat 1 (tioconazole)] vitamin E (d-alpha Allergy Unknown Verified 02/25/17 16:18 tocopherol) Review of Systems ROS Statement: Those systems with pertinent positive or pertinent negative responses have been documented in the HPI. ROS Other: All systems not noted in ROS Statement are negative. Past Medical History Past Medical History: Asthma, CVA/TIA, Fibromyalgia, Pneumonia, Seizure Disorder Additional Past Medical History / Comment(s): CHRONIC PAIN, UTI, HYPOGLYCEMIA, DDD, MIGARINES, PSEUDOSEIZURES History of Any Multi-Drug Resistant Organisms: None Reported Past Surgical History: Tubal Ligation Additional Past Surgical History / Comment(s): RT OVARIAN CYST REMOVED 1993 Past Anesthesia/Blood Transfusion Reactions: No Reported Reaction Additional Past Anesthesia/Blood Transfusion Reaction / Comment(s): CLAUSTERPHOBIA Past Psychological History: Anxiety, Bipolar, Depression Smoking Status: Current every day smoker Past Alcohol Use History: Rare Past Drug Use History: None Reported - Past Family History Father Family Medical History: CVA/TIA Mother Family Medical History: Hypertension, Seizure Disorder Additional Family Medical History / Comment(s): HEART PROBLEMS, DEPRESSION General Exam - General Exam Comments Initial Comments: NIH of 2 Limitations: no limitations General appearance: alert, in no apparent distress Head exam: Present: atraumatic, normocephalic, normal inspection Eye exam: Present: normal appearance, PERRL, EOMI. Absent: scleral icterus, conjunctival injection, periorbital swelling ENT exam: Present: normal exam, mucous membranes moist Neck exam: Present: normal inspection. Absent: tenderness, meningismus, lymphadenopathy Respiratory exam: Present: normal lung sounds bilaterally. Absent: respiratory distress, wheezes, rales, rhonchi, stridor Cardiovascular Exam: Present: regular rate, normal rhythm, normal heart sounds. Absent: systolic murmur, diastolic murmur, rubs, gallop, clicks GI/Abdominal exam: Present: soft, normal bowel sounds. Absent: distended, tenderness, guarding, rebound, rigid Extremities exam: Present: normal inspection, full ROM, normal capillary refill. Absent: tenderness, pedal edema, joint swelling, calf tenderness Back exam: Present: normal inspection Neurological exam: Present: alert, oriented X3, CN II-XII intact Psychiatric exam: Present: normal affect, normal mood Skin exam: Present: warm, dry, intact, normal color. Absent: rash Course Vital Signs 02/25/17 02/25/17 02/25/17 16:18 16:58 18:00 Temperature 99.0 F Pulse Rate 96 84 80 Respiratory 18 18 20 Rate Blood Pressure 118/67 134/63 123/58 O2 Sat by Pulse 100 98 99 Oximetry - Reevaluation(s) Reevaluation #1: 02/25/17 19:13 Patient with no significant improvement clinically and symptoms EKG Findings - EKG Comments: EKG Findings:: EKG shows normal sinus rhythm of 70, WI 134, QRS 80, QTC 408 Medical Decision Making - Medical Decision Making 41 female in the ER with neurological complaint. Patient with history of TIA coming in with significant TIA versus CVA. Neurological complaint is right- sided facial weakness right-sided arm numbness and weakness. Patient to be admitted evaluation by neurology - Lab Data Result diagrams: 02/25/17 16:51 02/25/17 16:51 Lab Results 09/02/25/17 02/25/17 Range/Units 16:51 16:51 16:51 WBC 8.2 (3.8-10.6) k/uL RBC 4.96 (3.80-5.40) m/uL Hgb 15.5 (11.4-16.0) gm/dL Hct 46.0 (34.0-46.0) % MCV 92.7 (80.0-100.0) fL MCH 31.3 (25.0-35.0) pg MCHC 33.8 (31.0-37.0) g/dL RDW 12.6 (11.5-15.5) % Plt Count 271 (150-450) k/uL Neutrophils % 63 % Lymphocytes % 29 % Monocytes % 5 % Eosinophils % 1 % Basophils % 0 % Neutrophils # 5.1 (1.3-7.7) k/uL Lymphocytes # 2.4 (1.0-4.8) k/uL Monocytes # 0.4 (0-1.0) k/uL Eosinophils # 0.1 (0-0.7) k/uL Basophils # 0.0 (0-0.2) k/uL PT (9.0-12.0) sec INR (<1.2) APTT (22.0-30.0) sec Sodium 140 (137-145) mmol/L Potassium 4.6 (3.5-5.1) mmol/L Chloride 110 H (98-107) mmol/L Carbon Dioxide 23 (22-30) mmol/L Anion Gap 7 mmol/L BUN 8 (7-17) mg/dL Creatinine 0.66 (0.52-1.04) mg/dL Est GFR (MDRD) Af Amer >60 (>60 ml/min/1.73 sqM) Est GFR (MDRD) Non-Af >60 (>60 ml/min/1.73 sqM) Glucose 85 (74-99) mg/dL Calcium 9.3 (8.4-10.2) mg/dL Phosphorus 4.7 H (2.5-4.5) mg/dL Magnesium 2.0 (1.6-2.3) mg/dL Total Bilirubin 0.1 L (0.2-1.3) mg/dL AST 15 (14-36) U/L ALT 32 (9-52) U/L Alkaline Phosphatase 56 (38-126) U/L Total Creatine Kinase 44 (30-135) U/L CK-MB (CK-2) 0.2 (0.0-2.4) ng/mL CK-MB (CK-2) Rel Index 0.5 Troponin I <0.012 (0.000-0.034) ng/mL Total Protein 6.0 L (6.3-8.2) g/dL Albumin 3.6 (3.5-5.0) g/dL Urine Color Urine Appearance (Clear) Urine pH (5.0-8.0) Ur Specific [place] (1.001-1.035) Urine Protein (Negative) Urine Glucose (UA) (Negative) Urine Ketones (Negative) Urine Blood (Negative) Urine Nitrite (Negative) Urine Bilirubin (Negative) Urine Urobilinogen (<2.0) mg/dL Ur Leukocyte Esterase (Negative) Urine RBC (0-5) /hpf Urine WBC (0-5) /hpf Ur Squamous Epith Cells (0-4) /hpf 02/25/17 02/25/17 Range/Units 16:51 16:51 WBC (3.8-10.6) k/uL RBC (3.80-5.40) m/uL Hgb (11.4-16.0) gm/dL Hct (34.0-46.0) % MCV (80.0-100.0) fL MCH (25.0-35.0) pg MCHC (31.0-37.0) g/dL RDW (11.5-15.5) % Plt Count (150-450) k/uL Neutrophils % % Lymphocytes % % Monocytes % % Eosinophils % % Basophils % % Neutrophils # (1.3-7.7) k/uL Lymphocytes # (1.0-4.8) k/uL Monocytes # (0-1.0) k/uL Eosinophils # (0-0.7) k/uL Basophils # (0-0.2) k/uL PT 9.4 (9.0-12.0) sec INR 0.9 (<1.2) APTT 23.9 (22.0-30.0) sec Sodium (137-145) mmol/L Potassium (3.5-5.1) mmol/L Chloride (98-107) mmol/L Carbon Dioxide (22-30) mmol/L Anion Gap mmol/L BUN (7-17) mg/dL Creatinine (0.52-1.04) mg/dL Est GFR (MDRD) Af Amer (>60 ml/min/1.73 sqM) Est GFR (MDRD) Non-Af (>60 ml/min/1.73 sqM) Glucose (74-99) mg/dL Calcium (8.4-10.2) mg/dL Phosphorus (2.5-4.5) mg/dL Magnesium (1.6-2.3) mg/dL Total Bilirubin (0.2-1.3) mg/dL AST (14-36) U/L ALT (9-52) U/L Alkaline Phosphatase (38-126) U/L Total Creatine Kinase (30-135) U/L CK-MB (CK-2) (0.0-2.4) ng/mL CK-MB (CK-2) Rel Index Troponin I (0.000-0.034) ng/mL Total Protein (6.3-8.2) g/dL Albumin (3.5-5.0) g/dL Urine Color Yellow Urine Appearance Cloudy H (Clear) Urine pH 5.5 (5.0-8.0) Ur Specific [place] 1.014 (1.001-1.035) Urine Protein Negative (Negative) Urine Glucose (UA) Negative (Negative) Urine Ketones Negative (Negative) Urine Blood Trace H (Negative) Urine Nitrite Negative (Negative) Urine Bilirubin Negative (Negative) Urine Urobilinogen <2.0 (<2.0) mg/dL Ur Leukocyte Esterase Trace H (Negative) Urine RBC 2 (0-5) /hpf Urine WBC 6 H (0-5) /hpf Ur Squamous Epith Cells 15 H (0-4) /hpf - Radiology Data Radiology results: report reviewed (CT brain is negative for acute disease), image reviewed Disposition Clinical Impression: Seizure disorder, TIA (transient ischemic attack), Right facial numbness Disposition: ADMITTED IP TO THIS [facility] Condition: Fair Referrals: Balwinder Lozano MD [Primary Care Provider] - 1-2 days
[2017-02-25] MEDS ORDERED: ALBUTEROL NEBULIZED 2.5 MG/3 ML INHALATION PRN (20:13)
[2017-02-25] MEDS ORDERED: NAPROXEN 250 MG TAB PO PRN (20:13)
[2017-02-25] MEDS: LORazepam 0.5 MG TAB PO SCH (20:52)
[2017-02-25] MEDS: LACOSAMIDE 50 MG TABLET PO SCH (20:52)
[2017-02-25] MEDS: LACOSAMIDE 150 MG TABLET PO SCH (20:52)
[2017-02-25] MEDS: CLOPIDOGREL 75 MG TAB PO SCH (20:52)
[2017-02-25] MEDS: OXcarbazepine 300 MG TAB PO SCH (20:52)
[2017-02-25] MEDS: HYDROcodone/APAP 5-325MG 1 EACH TAB PO SCH (20:52)
[2017-02-25] MEDS ORDERED: NICOTINE 14MG/24HR PATCH TRANSDERM SCH (21:00)
[2017-02-25] MEDS: SODIUM CHLORIDE 0.9% 1,000 ML IV SCH (21:55)
[2017-02-26] MEDS: SODIUM CHLORIDE 0.9% 1,000 ML IV SCH ×2 (08:19→10:37)
[2017-02-26] MEDS: LACOSAMIDE 150 MG TABLET PO SCH ×2 (09:35→21:54)
[2017-02-26] MEDS: LACOSAMIDE 50 MG TABLET PO SCH ×2 (09:35→21:54)
[2017-02-26] MEDS: LORazepam 0.5 MG TAB PO SCH ×3 (09:35→21:54)
[2017-02-26] MEDS: HYDROcodone/APAP 5-325MG 1 EACH TAB PO SCH ×2 (09:35→21:54)
[2017-02-26] MEDS: OXcarbazepine 300 MG TAB PO SCH ×2 (09:36→22:40)
[2017-02-26] MEDS: CLOPIDOGREL 75 MG TAB PO SCH (09:36)
--- NOTE | 2017-02-26 10:53 | P.HPIM ---
History of Present Illness Patient presented to the emergency room with complaints of right-sided facial numbness right arm right leg weakness. Patient has a history of CVA A/TIA and seizures. Patient states she's having some trouble with slurred speech and word formation noted to have right arm right leg weakness Review of Systems Constitutional: Reports chronic headaches, Reports fatigue Neurological: Reports headaches, Reports motor disturbance, Reports seizures Past Medical History Past Medical History: Asthma, CVA/TIA, Fibromyalgia, Memory Impairment, Pneumonia, Seizure Disorder Additional Past Medical History / Comment(s): "RT SIDED WEAKER THAN LT AND I AVE MEMORY PROBLEMS,COMPREHENSION PROBLEMS AT TIMES EPISODES SLURRED SPEECH. CHRONIC BACK/RT LEG PAIN AND RT LEG AT TIMES CAN GIVE OUT ON HER,PAIN, UTI, PEPTIC ULCER DISEASE WHEN YOUNGER, HYPOGLYCEMIA, DDD, MIGARINES, PSEUDOSEIZURES, KIDNEYSTONES History of Any Multi-Drug Resistant Organisms: None Reported Past Surgical History: Tubal Ligation Additional Past Surgical History / Comment(s): RT OVARIAN CYST REMOVED 1993 Past Anesthesia/Blood Transfusion Reactions: No Reported Reaction Additional Past Anesthesia/Blood Transfusion Reaction / Comment(s): CLAUSTERPHOBIA Smoking Status: Current every day smoker - Past Family History Sister(s) Family Medical History: Cancer Father Family Medical History: CVA/TIA, Hypertension Mother Family Medical History: AFIB, Hypertension, Seizure Disorder Additional Family Medical History / Comment(s): HEART PROBLEMS, DEPRESSION Medications and Allergies Home Medications Medication Instructions Recorded Confirmed Type HYDROcodone/APAP 5-325MG [[place] 1 tab PO BID 02/02/16 02/25/17 History 5-325] Naproxen 500 mg PO BID PRN 02/02/16 02/25/17 History Clopidogrel [Plavix] 75 mg PO DAILY #30 tab 02/24/16 02/25/17 Rx Albuterol Sulfate [Ventolin HFA] 2 puff INHALATION RT-QID PRN 10/21/16 02/25/17 History Butalb/Asprin/Caff 50-325-40Mg 1 cap PO Q8H PRN 10/21/16 02/25/17 History [Fiorinal 50-325-40 MG] Ergocalciferol [Vitamin D2 50,000 unit PO Q7D 10/21/16 02/25/17 History (DRISDOL)] Lacosamide [Vimpat] 200 mg PO BID 10/21/16 02/25/17 History OXcarbazepine [Trileptal] 600 mg PO BID 10/21/16 02/25/17 History Topiramate [Trokendi Xr] 100 mg PO DAILY 02/25/17 02/25/17 History Allergies Allergy/AdvReac Type Severity Reaction Status Date / Time adhesive Allergy Unknown Verified 10/21/16 21:51 aloe Allergy Unknown Verified 10/21/16 21:51 aloe vera Allergy Unknown Verified 10/21/16 21:51 carbetapentane Allergy Unknown Verified 10/21/16 21:51 castor oil Allergy Unknown Verified 10/21/16 21:51 citalopram hydrobromide Allergy Rash/Hives Verified 02/25/17 17:36 [From Celexa] diethylene glycol Allergy Unknown Verified 10/21/16 21:51 dimethicone Allergy Unknown Verified 10/21/16 21:51 grape Allergy Unknown Verified 10/21/16 21:51 Imidazole Alkylating Agents Allergy Unknown Verified 10/21/16 21:51 iodine Allergy Unknown Verified 02/25/17 16:18 Iodine and Iodide Containing Allergy Unknown Verified 02/25/17 16:18 Produc miconazole [From Monistat 3] Allergy Unknown Verified 02/25/17 17:36 olive extract Allergy Unknown Verified 02/25/17 16:18 olive oil Allergy Unknown Verified 02/25/17 16:18 Penicillins Allergy Rash/Hives Verified 02/25/17 17:36 polyethylene glycol Allergy Unknown Verified 02/25/17 16:18 potassium Allergy Unknown Verified 02/25/17 16:18 propylene glycol Allergy Unknown Verified 02/25/17 16:18 silicone Allergy Unknown Verified 02/25/17 16:18 skin cleanser combination Allergy Unknown Verified 02/25/17 17:36 no.17 [From Monistat 3] sorbitan sesquioleate Allergy Unknown Verified 02/25/17 16:18 [From Polysorb Hydrate] tioconazole Allergy Rash/Hives Verified 02/25/17 16:18 [From Monistat 1 (tioconazole)] vitamin E (d-alpha Allergy Unknown Verified 02/25/17 16:18 tocopherol) Physical Exam Vitals: Vital Signs Temp Pulse Pulse Resp BP BP Pulse Ox 02/26/17 08:00 97.5 F L 76 16 119/65 98 02/26/17 04:00 97 F L 81 18 100/58 98 02/26/17 00:00 98.0 F 78 16 124/87 99 02/25/17 20:00 105 H 20 134/97 99 02/25/17 18:00 80 20 123/58 99 02/25/17 16:58 84 18 134/63 98 02/25/17 16:18 99.0 F 96 18 118/67 100 Intake and Output 02/25/17 02/26/17 02/26/17 22:59 06:59 14:59 Intake Total 500 840 Balance 500 840 Intake: Amount of Fluid Infused ( 500 ml) Intake, IV Titration 600 Amount Sodium Chloride 0.9% 1, 600 000 ml @ 100 mls/hr IV . Q10H MARLENY Rx#:[id number] Oral 240 Other: Voiding Method Toilet Toilet # Voids 1 Weight 65.091 kg 67.6 kg - Constitutional General appearance: mild distress - EENT Eyes: PERRLA Ears: bilateral: normal - Neck Neck: normal ROM - Respiratory Respiratory: bilateral: CTA - Cardiovascular Rhythm: regular - Gastrointestinal General gastrointestinal: soft - Integumentary Integumentary: normal - Neurologic Neurologic: CNII-XII intact - Musculoskeletal Musculoskeletal: right sided weakness - Psychiatric Psychiatric: A&O x's 3, appropriate affect, intact judgment & insight Results CBC & Chem 7: 02/25/17 16:51 02/25/17 16:51 Labs: Abnormal Lab Results - Last 24 Hours (Table) 02/25/17 02/25/17 Range/Units 16:51 16:51 Chloride 110 H (98-107) mmol/L Phosphorus 4.7 H (2.5-4.5) mg/dL Total Bilirubin 0.1 L (0.2-1.3) mg/dL Total Protein 6.0 L (6.3-8.2) g/dL Urine Appearance Cloudy H (Clear) Urine Blood Trace H (Negative) Ur Leukocyte Esterase Trace H (Negative) Urine WBC 6 H (0-5) /hpf Ur Squamous Epith Cells 15 H (0-4) /hpf Microbiology - Last 24 Hours (Table) 02/25/17 16:51 Urine Culture - Preliminary Urine,Voided CT Scan - head: report reviewed Thrombosis Risk Factor Assmnt - Choose All That Apply Any of the Below Risk Factors Present?: Yes Other Risk Factors: No Other congenital or acquired thrombophilia - If yes, enter type in comment: No Assessment and Plan Plan: Assessment TIA right-sided weakness Seizure disorder History of asthma History of CVA/TIA with right-sided weakness Fibromyalgia Plan Neurology consultation
[2017-02-26] MEDS: NICOTINE 7MG/24HR PATCH TRANSDERM SCH (11:08)
[2017-02-26 11:10] VITALS: BMI 25.5
[2017-02-26 11:45] LABS: Glucose,Whole Blood 133 mg/dL (75-99)
--- NOTE | 2017-02-26 23:22 | CONS ---
CONSULTATION DATE OF CONSULTATION: 02/26/2017. CHIEF COMPLAINT: Weakness. HISTORY OF PRESENT ILLNESS: The patient is a pleasant 41-year-old female who is being evaluated by the Neurology Service per the request of Dr. Balwinder Lozano for weakness. The patient states she has been having progressive weakness involving her right upper and lower extremity for the past 3 days. The symptoms began as numbness and tingling in her right arm and then started involving her right lower extremity. She then developed weakness involving her right side. The patient does have previous history of transient ischemic attacks and seizure disorder. Her seizures have been well-controlled recently. She is currently on Trileptal, Trokendi XR and Vimpat. For her history of transient ischemic attacks, she is on Plavix [address] scan of the brain was done on this admission which was normal. Her CBC, comprehensive metabolic profile and cardiac enzymes were normal. Her urinalysis showed 6 WBCs with trace leukocyte esterase. She was admitted for further workup and management. At the time of my evaluation, she is lying in her bed and appears to be in no acute distress. She denies any changes in her right-sided symptoms since her admission. Physical therapy has been consulted. PAST MEDICAL HISTORY: Transient ischemic attacks, seizure disorder, asthma, fibromyalgia, history of tubal ligation. And ovarian cyst removal. She also has history of anxiety disorder and migraine headaches. SOCIAL HISTORY: The patient is a current every day smoker. She denies any alcohol or drug use. FAMILY HISTORY: Positive for cancer, strokes, hypertension and seizures. HOME MEDICATIONS: Reviewed in the chart. ALLERGIES: Multiple allergies reviewed in the chart. REVIEW OF SYSTEM: CONSTITUTIONAL: Positive for fatigue. EYES: Negative. ENT: Negative. CARDIOVASCULAR: Negative. RESPIRATORY: Positive for occasional wheezing. NEUROLOGICAL: As mentioned above. GASTROINTESTINAL: Negative. GENITOURINARY: Negative. MUSCULOSKELETAL: Positive for occasional back pain and myalgia. DERMATOLOGICAL: Negative. ENDOCRINE: Negative. PSYCHIATRIC: Negative. PHYSICAL EXAM: Vital signs show a temperature of 97.3, pulse 75, respirations 16, blood pressure 128/80. GENERAL APPEARANCE: The patient is a well-developed female who appears to be in no acute distress. HEENT: Normocephalic, atraumatic. No facial asymmetry is seen. NECK: Supple with no masses felt. CARDIOVASCULAR: Regular rate and rhythm. ABDOMEN: Nontender nondistended. Extremities showed no edema or clubbing. NEUROLOGICAL: The patient is alert, aware and oriented x3. Speech and language are normal. Strength is 4/5 on the right and 5/5 on the left. Sensory showed diminished light touch sensation on the right compared to the left. Cranial nerve testing showed no facial asymmetry. No tremors or seizure-like activity is seen. IMPRESSION: 1. Right-sided weakness. 2. Right-sided sensory deficit. 3. History of seizures, well controlled. 4. Urinary tract infection. 5. History of transient ischemic attacks. RECOMMENDATION: The patient continues to have weakness and sensory deficit on the right upper and lower extremities. The exact etiology at this time is unknown. She denies having any recent breakthrough seizures. I will order an MRI of the brain without contrast. I will start her on IV Solu-Medrol 250 mg every 8 hours and will monitor for any improvements. Physical Therapy has been consulted. Continue Topamax, Trileptal and Vimpat at her current home doses. Continue Plavix 75 mg daily. I will continue to follow with you. Further recommendations to follow. Thank you, Dr. Lozano, for allowing me to participate in the care of your patient. If you have any questions, please feel free to contact me. MMODL / IJN: [id number] /
[2017-02-27] MEDS: LORazepam 0.5 MG TAB PO SCH (02:56)
[2017-02-27] MEDS: SODIUM CHLORIDE 0.9% 1,000 ML IV SCH (05:04)
[2017-02-27] MEDS ORDERED: LORazepam 0.5 MG TAB PO ONE (07:15)
[2017-02-27] MEDS ORDERED: LORazepam 2 MG/ML INJ IV ONE ×2 (07:15→07:45)
[2017-02-27 07:39] LABS: Glucose,Whole Blood 135 mg/dL (75-99)
--- NOTE | 2017-02-27 09:05 | MR ---
EXAMINATION TYPE: MR brain wo con DATE OF EXAM: 02/27/2017 8:10 AM COMPARISON: 09/23/2016 HISTORY: Right hemiperesis Multiplanar and multispin-echo imaging of the brain was performed . The ventricles, basal cisterns and sulci overlying the cerebral convexities are within normal limits. Developmental asymmetry of the ventricles. There is no evidence for midline shift or mass effect. Acute intracranial hemorrhage or extra-axial collection is not evident. Stable small cystic structure left insular cortex which may be on the basis of remote insult versus p rominence of the perivascular spaces of Virchow-Lokesh. Small hyperintense foci left anterior matamoros r adiata as well as high left frontal subcortical region are nonspecific. No acute edema is identified. The paranasal sinuses and mastoid air cells are well-aerated. IMPRESSION: 1. Small hyperintense foci left anterior matamoros radiata as well as high left frontal subcortical carlos on are nonspecific. Otherwise stable examination. No evidence for acute process.
[2017-02-27] MEDS: OXcarbazepine 300 MG TAB PO SCH (09:27)
[2017-02-27] MEDS: CLOPIDOGREL 75 MG TAB PO SCH (09:28)
[2017-02-27] MEDS: NICOTINE 7MG/24HR PATCH TRANSDERM SCH (09:28)
[2017-02-27] MEDS: HYDROcodone/APAP 5-325MG 1 EACH TAB PO SCH (09:32)
[2017-02-27] MEDS: LACOSAMIDE 50 MG TABLET PO SCH (09:32)
[2017-02-27] MEDS: LACOSAMIDE 150 MG TABLET PO SCH (09:33)
[2017-02-27 11:50] LABS: Glucose,Whole Blood 135 mg/dL (75-99)
[2017-02-27 12:18] VITALS: BP 118/60; PULSE 122; RESP 16; TEMP 96.8
--- NOTE | 2017-02-27 14:33 | P.PN ---
Subjective Principal diagnosis: Patient is a pleasant 41-year-old female who is being followed by the neurology service for weakness. Patient came to [facility] emergency room complaining of progressive right-sided weakness in the upper and lower extremities. Patient states this is been going on for the past 3 days and not resolving. Patient does have history of transient ischemic attacks in seizure disorder. Patient reports seizures have been well controlled. Patient takes Trileptal, trochanteric checks R, and Vimpat at home. She takes Plavix 75 mg by mouth daily for history of TIA. CT scan was done on admission which was normal. At the time of my evaluation, patient is resting comfortably in bed and appears to be in no acute distress. Patient does state improvement in right -sided weakness and paresthesia. Objective - Vital Signs Vital signs: Vital Signs Temp 96.8 F L 02/27/17 12:00 Pulse 122 H 02/27/17 12:00 Resp 16 02/27/17 12:00 BP 118/60 02/27/17 12:00 Pulse Ox 95 02/27/17 12:00 Intake & Output 02/26/17 02/27/17 02/27/17 18:59 06:59 18:59 Intake Total 240 1400 300 Balance 240 1400 300 Weight 67.6 kg 67.4 kg Intake: IV 1400 Sodium Chloride 0.9% 1, 1200 000 ml @ 100 mls/hr IV . Q10H MARLENY Rx#:[id number] methylPREDNISolone SOD 200 SUCC 250 mg In Sodium Chloride 0.9% 100 ml @ 100 mls/hr IVPB Q8H MARLENY Rx#:[id number] Oral 240 300 Other: Voiding Method Toilet # Voids 3 - Exam PHYSICAL EXAM: GENERAL APPEARANCE: Patient is a well-developed, female who appears to be in no acute distress. HEENT: Normocephalic, atraumatic, no facial asymmetry is seen. Neck is supple with no masses felt. CARDIOVASCULAR: Regular rate and rhythm. ABDOMEN: Nontender, nondistended. EXTREMITIES: Show no edema or clubbing. NEUROLOGICAL EXAM: Patient is awake, alert, and oriented 3. Speech-language are normal. Strength is 4+/5 in right upper and lower extremities and 5/5 in left upper and lower extremities. Sensory exam is diminished to light touch and right upper and lower extremity. No facial asymmetry is seen on cranial nerve testing. No tremors or seizure-like activity noted. - Labs CBC & Chem 7: 02/25/17 16:51 02/25/17 16:51 Labs: Abnormal Lab Results - Last 24 Hours (Table) 02/27/17 02/27/17 Range/Units 07:28 11:47 POC Glucose (mg/dL) 135 H 135 H (75-99) mg/dL Microbiology - Last 24 Hours (Table) 02/25/17 16:51 Urine Culture - Final Urine,Voided Assessment and Plan Plan: Impression: 1. Right-sided weakness, resolving 2. Right-sided sensory deficit, resolving 3. History of seizure disorder, well controlled 4. Urinary tract infection 5. History of transient ischemic attacks Recommendation: The patient states her right-sided weakness and paresthesias have significantly improved since being started on IV steroids. MRI of the brain showed few hyperintense foci but otherwise no evidence for acute process. She will follow up in the office for further evaluation of MRI changes. No seizure activity since admission. Patient's ECG is showing sinus tachycardia which is most likely related to steroids. Patient is up ambulating and eating well. Patient is stable for discharge from a neurological standpoint. Continue home medications. I recommend sending her home on a Medrol Dosepak. Patient is to make an appointment in the office within the next 2 weeks. I performed an examination of the patient and discussed the management with the COAT CHECKER. I have reviewed the COAT CHECKER notes and agree with the findings and plan of care.
--- NOTE | 2017-02-27 18:04 | P.DS ---
Providers Date of admission: 02/25/17 19:04 Attending physician: Balwinder Lozano Consults: 02/25/17 19:10 Consult Physician Routine Consulting Provider: Mariam Marcano Consult Reason/Comments: tia,known Do you want consulting provider notified?: Yes Primary care physician: Balwinder Lozano [facility] Course: This 41-year-old woman was being followed by Dr. Kymberly Lozano in the outpatient setting was admitted with right-sided facial numbness and some weakness. The possibility of TIA was considered. Patient also had history of seizure disorder. Neurology saw the patient. MRI of the brain was done. Which showed small hyperintense foci left hemisphere. As well as high left frontal subcortical region thought to be nonspecific. Neurology recommended the patient be discharged and continued follow-up in the outpatient setting. Patient was also given empiric IV steroids. On exam vitals are stable. Cardio S1 and S2 normal. Respirator system clear to auscultation. Abdomen soft nontender. No system of right-sided numbness and weakness improved. If the symptoms are persisting or worsening patient might require full workup including workup for demyelinating illness. The patient understands and agrees. Overall prognosis guarded E stable. Patient will be advised to follow- up with Dr. Lozano in the preceding as well as Dr. marcano in the outpatient setting. Final diagnosis 1. Acute TIA or coryza Cosper left hemispheric lesion. 2. Seizure disorder 3. History of asthma 4. History of CVA TIA with right-sided weakness. 5. Fibromyalgia. Patient Condition at Discharge: Fair Plan - Discharge Summary New Discharge Prescriptions: New methylPREDNISolone Dose Pack [Medrol Dose Pack] 4 mg PO DIRECTED #21 package Nicotine 7Mg/24Hr Patch [Habitrol] 1 patch TRANSDERM DAILY #30 patch Continue HYDROcodone/APAP 5-325MG [[place] 5-325] 1 tab PO BID Naproxen 500 mg PO BID PRN PRN Reason: Pain Clopidogrel [Plavix] 75 mg PO DAILY #30 tab Butalb/Asprin/Caff 50-325-40Mg [Fiorinal 50-325-40 MG] 1 cap PO Q8H PRN PRN Reason: Pain OXcarbazepine [Trileptal] 600 mg PO BID Ergocalciferol [Vitamin D2 (DRISDOL)] 50,000 unit PO Q7D Albuterol Sulfate [Ventolin HFA] 2 puff INHALATION RT-QID PRN PRN Reason: Shortness Of Breath Lacosamide [Vimpat] 200 mg PO BID Topiramate [Trokendi Xr] 100 mg PO DAILY Discharge Medication List HYDROcodone/APAP 5-325MG [[place] 5-325] 1 tab PO BID 02/02/16 [History] Naproxen 500 mg PO BID PRN 02/02/16 [History] Clopidogrel [Plavix] 75 mg PO DAILY #30 tab 02/24/16 [Rx] Albuterol Sulfate [Ventolin HFA] 2 puff INHALATION RT-QID PRN 10/21/16 [History] Butalb/Asprin/Caff 50-325-40Mg [Fiorinal 50-325-40 MG] 1 cap PO Q8H PRN [History] Ergocalciferol [Vitamin D2 (DRISDOL)] 50,000 unit PO Q7D 10/21/16 [History] Lacosamide [Vimpat] 200 mg PO BID 10/21/16 [History] OXcarbazepine [Trileptal] 600 mg PO BID 10/21/16 [History] Topiramate [Trokendi Xr] 100 mg PO DAILY 02/25/17 [History] Nicotine 7Mg/24Hr Patch [Habitrol] 1 patch TRANSDERM DAILY #30 patch 02/27/17 [ Rx] methylPREDNISolone Dose Pack [Medrol Dose Pack] 4 mg PO DIRECTED #21 package 02/27/17 [Rx] Follow up Appointment(s)/Referral(s): Balwinder Lozano MD [Primary Care Provider] - 3 Days (patient states will call and make own appointment) Mariam Marcano MD [STAFF PHYSICIAN] - 2 Weeks (patient states wants to call and make own appointment) Patient Instructions/Handouts: Transient Ischemic Attack (GEN) Discharge Disposition: HOME SELF-CARE
== END 2017-02-27 16:27 | disposition home or self-care (01) ==
LOC: EC 16:05 → 6SEL 19:04
PROVIDERS: ADMIT Family Medicine; ATTEND Family Medicine
DX: G45.9 Transient cerebral ischemic attack, unspecified (principal); G40.909 Epilepsy, unspecified, not intractable, without status epilepticus; J45.909 Unspecified asthma, uncomplicated; I69.351 Hemiplegia and hemiparesis following cerebral infarction affecting right dominant side; M79.7 Fibromyalgia; R20.0 Anesthesia of skin; R47.81 Slurred speech; N39.0 Urinary tract infection, site not specified; G89.29 Other chronic pain; F31.9 Bipolar disorder, unspecified; G43.909 Migraine, unspecified, not intractable, without status migrainosus; F17.200 Nicotine dependence, unspecified, uncomplicated; F41.9 Anxiety disorder, unspecified; Z88.3 Allergy status to other anti-infective agents; Z88.0 Allergy status to penicillin; Z91.018 Allergy to other foods; Z88.8 Allergy status to other drugs, medicaments and biological substances; Z79.899 Other long term (current) drug therapy; Z79.02 Long term (current) use of antithrombotics/antiplatelets; Z79.891 Long term (current) use of opiate analgesic; Z82.49 Family history of ischemic heart disease and other diseases of the circulatory system; Z82.3 Family history of stroke
CPT/HCPCS: 96361 ×6; 96365; 96366 ×2; 99285; 36415; 94760; 93005; 97161; 92523; 80053; 82550; 82553; 83735; 84100; 84484; 85025; 85610; 85730; 81001; 87086; 70450; 70551; G0378 ×3; S4990 ×3; J2930 ×2

== ENCOUNTER 2017-03-15 19:01 | Emergency (ER) | payer MEDICARE, OTHER ==
[2017-03-15 19:06] VITALS: RESP 16
[2017-03-15] MEDS ORDERED: SODIUM CHLORIDE 0.9% 1,000 ML IV STA (19:15)
--- NOTE | 2017-03-15 19:21 | ED ---
General Adult HPI - General Chief complaint: Seizure Stated complaint: seizure Time Seen by Provider: 03/15/17 19:07 Source: patient Mode of arrival: wheelchair Limitations: no limitations - History of Present Illness Initial comments: Her back is a 41-year-old female with past medical history of pseudoseizures and fibromyalgia who presents to the emergency department today via private vehicle for evaluation of persistent seizure activity. The patient was evaluated in our emergency department on and Thursday for seizure activity. At that time she was discharged home and advised to continue her home medication regimen follow-up with her neurologist as scheduled on Thursday. Patient's friend at bedside is able to provide most of the history. He states that the patient has continued to have multiple seizures throughout the day Thursday and Thursday which prompted them to call her neurologist who advised that she needed to come to the emergency department with the plan for admission to the hospital for further evaluation. They report the patient has been compliant with her home medications taking her Trileptal and Vimpat. Friend at bedside reports that the patient's last seizure occurred while driving to the emergency department, he states that upon arrival the patient is currently postictal. When I attempted to obtain any history from the patient she stared at me blankly although her eyes blinked as though she was recommended to have speaking to her. When I asked the patient's friend what medication the patient is currently on he stated Trileptal and then the patient was able to clearly state that she also takes Vimpat. However she declined to provide much further history. Patient reports feeling generalized fatigue and weakness of her entire body. She does state she has some pain in her right arm and leg which he attributes to the multiple episodes of tonic-clonic activity. She denies any further injuries. Said her last menses was between the third and the eighth of this month and there is no chance that she is currently . - Related Data Home Medications Medication Instructions Recorded Confirmed HYDROcodone/APAP 5-325MG [[place] 1 tab PO BID 02/02/16 03/15/17 5-325] Naproxen 500 mg PO BID PRN 02/02/16 03/15/17 Albuterol Sulfate [Ventolin HFA] 2 puff INHALATION RT-QID PRN 10/21/16 03/15/17 Butalb/Asprin/Caff 50-325-40Mg 1 cap PO Q8H PRN 10/21/16 03/15/17 [Fiorinal 50-325-40 MG] Ergocalciferol [Vitamin D2 50,000 unit PO Q7D 10/21/16 03/15/17 (DRISDOL)] Lacosamide [Vimpat] 200 mg PO BID 10/21/16 03/15/17 OXcarbazepine [Trileptal] 600 mg PO BID 10/21/16 03/15/17 Topiramate [Trokendi Xr] 100 mg PO DAILY 02/25/17 03/15/17 Clopidogrel [Plavix] 75 mg PO HS 03/15/17 03/15/17 Allergies Allergy/AdvReac Type Severity Reaction Status Date / Time adhesive Allergy Unknown Verified 03/15/17 19:34 aloe Allergy Unknown Verified 03/15/17 19:34 aloe vera Allergy Unknown Verified 03/15/17 19:34 carbetapentane Allergy Unknown Verified 03/15/17 19:34 castor oil Allergy Unknown Verified 03/15/17 19:34 citalopram hydrobromide Allergy Rash/Hives Verified 03/15/17 19:34 [From Celexa] diethylene glycol Allergy Unknown Verified 03/15/17 19:34 dimethicone Allergy Unknown Verified 03/15/17 19:34 grape Allergy Unknown Verified 03/15/17 19:34 Imidazole Alkylating Agents Allergy Unknown Verified 03/15/17 19:34 iodine Allergy Unknown Verified 03/15/17 19:34 Iodine and Iodide Containing Allergy Unknown Verified 03/15/17 19:34 Produc miconazole [From Monistat 3] Allergy Unknown Verified 03/15/17 19:34 olive extract Allergy Unknown Verified 03/15/17 19:34 olive oil Allergy Unknown Verified 03/15/17 19:34 Penicillins Allergy Rash/Hives Verified 03/15/17 19:34 polyethylene glycol Allergy Unknown Verified 03/15/17 19:34 potassium Allergy Unknown Verified 03/15/17 19:34 propylene glycol Allergy Unknown Verified 03/15/17 19:34 silicone Allergy Unknown Verified 03/15/17 19:34 skin cleanser combination Allergy Unknown Verified 03/15/17 19:34 no.17 [From Monistat 3] sorbitan sesquioleate Allergy Unknown Verified 03/15/17 19:34 [From Polysorb Hydrate] tioconazole Allergy Rash/Hives Verified 03/15/17 19:34 [From Monistat 1 (tioconazole)] vitamin E (d-alpha Allergy Unknown Verified 03/15/17 19:34 tocopherol) Review of Systems ROS Statement: Those systems with pertinent positive or pertinent negative responses have been documented in the HPI. ROS Other: All systems not noted in ROS Statement are negative. Neurological: Reports: other (Seizure) Past Medical History Past Medical History: Asthma, CVA/TIA, Fibromyalgia, Memory Impairment, Pneumonia, Seizure Disorder Additional Past Medical History / Comment(s): "RT SIDED WEAKER THAN LT AND I AVE MEMORY PROBLEMS,COMPREHENSION PROBLEMS AT TIMES EPISODES SLURRED SPEECH. CHRONIC BACK/RT LEG PAIN AND RT LEG AT TIMES CAN GIVE OUT ON HER,PAIN, UTI, PEPTIC ULCER DISEASE WHEN YOUNGER, HYPOGLYCEMIA, DDD, MIGARINES, PSEUDOSEIZURES, KIDNEYSTONES History of Any Multi-Drug Resistant Organisms: None Reported Past Surgical History: Tubal Ligation Additional Past Surgical History / Comment(s): RT OVARIAN CYST REMOVED 1993 Past Anesthesia/Blood Transfusion Reactions: No Reported Reaction Additional Past Anesthesia/Blood Transfusion Reaction / Comment(s): CLAUSTERPHOBIA Past Psychological History: Anxiety, Bipolar, Depression Smoking Status: Current every day smoker Past Alcohol Use History: None Reported Past Drug Use History: None Reported - Past Family History Sister(s) Family Medical History: Cancer Father Family Medical History: CVA/TIA, Hypertension Mother Family Medical History: AFIB, Hypertension, Seizure Disorder Additional Family Medical History / Comment(s): HEART PROBLEMS, DEPRESSION General Exam Limitations: no limitations General appearance: alert Head exam: Present: atraumatic, normocephalic Eye exam: Present: normal appearance, PERRL ENT exam: Present: normal exam Neck exam: Present: normal inspection Respiratory exam: Present: normal lung sounds bilaterally. Absent: respiratory distress, wheezes Cardiovascular Exam: Present: regular rate, normal rhythm, normal heart sounds. Absent: tachycardia, irregular rhythm GI/Abdominal exam: Present: soft. Absent: distended, tenderness, guarding, rebound, rigid Extremities exam: Present: normal inspection. Absent: pedal edema, joint swelling Back exam: Present: normal inspection Neurological exam: Present: alert Psychiatric exam: Present: flat affect Skin exam: Present: warm, dry Course Vital Signs 03/15/17 19:02 Temperature 98.9 F Pulse Rate 72 Respiratory 16 Rate Blood Pressure 139/63 O2 Sat by Pulse 92 L Oximetry EKG Findings - EKG Comments: EKG Findings:: EKG at 7:26 PM - rate 85, rhythm is normal sinus, normal intervals, normal axis, no acute ST elevations or depressions. No evidence of acute ischemia or infarction. Medical Decision Making - Medical Decision Making Patient was seen and evaluated, history was obtained from patient, friends at bedside and medical record Concern for seizure-like activity at home despite medication compliant Labs were ordered Patient was noted to have an approximately 2 second seizure in front of her nurse, seizure consisted of shaking of the bilateral upper extremities and eyes being closed. The patient was immediately alert and oriented with no postictal period Labs are reviewed, there is no elevation of CPK, no elevation of lactic acid. I would expect these to be elevated with the patient having recurrent prolonged seizure activity. Considering the patient's history of pseudoseizures, the lack of postictal period, and the normal labs. I feel the patient is having pseudoseizure activity. I reviewed the patient's chart which also reveals there was concern for pseudoseizures rather than true tonic-clonic seizures throughout her repeat evaluations over the past week. Per her note on the the patient is scheduled to follow-up with her neurologist Dr. Davis tomorrow. The patient Dr. Davis and spoke to neurology content analyst Dr. Bashir Herrera who states that given the patient's history and lab findings he doesn't feel there is an indication for admission at this time. The patient should follow-up with her primary neurologist as scheduled. Results and neurology recommendations were discussed with the patient and her friends at bedside. I advised the patient that she needs to continue her home medications and follow-up the Dr. Davis's office as scheduled. Patient states now that her appointment was not with Dr. Davis was with a counselor and that she is canceled that appointment because she was planning on being admitted. I advised the patient that she needs to call Dr. Celis's office in the morning to discuss with him her recurrent episodes. Patient expressed understanding and was discharged home in stable condition. - Lab Data Result diagrams: 03/15/17 19:45 03/15/17 19:45 Lab Results 03/15/17 03/15/17 03/15/17 Range/Units 19:25 19:45 19:45 WBC 9.4 (3.8-10.6) k/uL RBC 4.92 (3.80-5.40) m/uL Hgb 14.9 (11.4-16.0) gm/dL Hct 44.1 (34.0-46.0) % MCV 89.7 (80.0-100.0) fL MCH 30.3 (25.0-35.0) pg MCHC 33.8 (31.0-37.0) g/dL RDW 12.5 (11.5-15.5) % Plt Count 289 (150-450) k/uL Neutrophils % 67 % Lymphocytes % 25 % Monocytes % 5 % Eosinophils % 1 % Basophils % 1 % Neutrophils # 6.3 (1.3-7.7) k/uL Lymphocytes # 2.4 (1.0-4.8) k/uL Monocytes # 0.5 (0-1.0) k/uL Eosinophils # 0.1 (0-0.7) k/uL Basophils # 0.0 (0-0.2) k/uL Sodium 137 (137-145) mmol/L Potassium 4.5 (3.5-5.1) mmol/L Chloride 105 (98-107) mmol/L Carbon Dioxide 22 (22-30) mmol/L Anion Gap 10 mmol/L BUN 10 (7-17) mg/dL Creatinine 0.60 (0.52-1.04) mg/dL Est GFR (MDRD) Af Amer >60 (>60 ml/min/1.73 sqM) Est GFR (MDRD) Non-Af >60 (>60 ml/min/1.73 sqM) Glucose 87 (74-99) mg/dL Plasma Lactic Acid Dio (0.7-2.0) mmol/L Calcium 9.5 (8.4-10.2) mg/dL Total Bilirubin 0.2 (0.2-1.3) mg/dL AST 26 (14-36) U/L ALT 35 (9-52) U/L Alkaline Phosphatase 59 (38-126) U/L Creatine Kinase 35 (30-135) U/L Total Protein 6.5 (6.3-8.2) g/dL Albumin 3.9 (3.5-5.0) g/dL Urine Color Yellow Urine Appearance Clear (Clear) Urine pH 5.5 (5.0-8.0) Ur Specific [place] 1.013 (1.001-1.035) Urine Protein Negative (Negative) Urine Glucose (UA) Negative (Negative) Urine Ketones Negative (Negative) Urine Blood Negative (Negative) Urine Nitrite Negative (Negative) Urine Bilirubin Negative (Negative) Urine Urobilinogen <2.0 (<2.0) mg/dL Ur Leukocyte Esterase Negative (Negative) Urine Opiates Screen Not Detected (NotDetected) Ur Oxycodone Screen Not Detected (NotDetected) Urine Methadone Screen Not Detected (NotDetected) Ur Propoxyphene Screen Not Detected (NotDetected) Ur Barbiturates Screen Not Detected (NotDetected) U Tricyclic Antidepress Not Detected (NotDetected) Ur Phencyclidine Scrn Not Detected (NotDetected) Ur Amphetamines Screen Not Detected (NotDetected) U Methamphetamines Scrn Not Detected (NotDetected) U Benzodiazepines Scrn Not Detected (NotDetected) Urine Cocaine Screen Not Detected (NotDetected) U Marijuana (THC) Screen Not Detected (NotDetected) Serum Alcohol <10 mg/dL 03/15/17 Range/Units 19:45 WBC (3.8-10.6) k/uL RBC (3.80-5.40) m/uL Hgb (11.4-16.0) gm/dL Hct (34.0-46.0) % MCV (80.0-100.0) fL MCH (25.0-35.0) pg MCHC (31.0-37.0) g/dL RDW (11.5-15.5) % Plt Count (150-450) k/uL Neutrophils % % Lymphocytes % % Monocytes % % Eosinophils % % Basophils % % Neutrophils # (1.3-7.7) k/uL Lymphocytes # (1.0-4.8) k/uL Monocytes # (0-1.0) k/uL Eosinophils # (0-0.7) k/uL Basophils # (0-0.2) k/uL Sodium (137-145) mmol/L Potassium (3.5-5.1) mmol/L Chloride (98-107) mmol/L Carbon Dioxide (22-30) mmol/L Anion Gap mmol/L BUN (7-17) mg/dL Creatinine (0.52-1.04) mg/dL Est GFR (MDRD) Af Amer (>60 ml/min/1.73 sqM) Est GFR (MDRD) Non-Af (>60 ml/min/1.73 sqM) Glucose (74-99) mg/dL Plasma Lactic Acid Dio 1.1 (0.7-2.0) mmol/L Calcium (8.4-10.2) mg/dL Total Bilirubin (0.2-1.3) mg/dL AST (14-36) U/L ALT (9-52) U/L Alkaline Phosphatase (38-126) U/L Creatine Kinase (30-135) U/L Total Protein (6.3-8.2) g/dL Albumin (3.5-5.0) g/dL Urine Color Urine Appearance (Clear) Urine pH (5.0-8.0) Ur Specific [place] (1.001-1.035) Urine Protein (Negative) Urine Glucose (UA) (Negative) Urine Ketones (Negative) Urine Blood (Negative) Urine Nitrite (Negative) Urine Bilirubin (Negative) Urine Urobilinogen (<2.0) mg/dL Ur Leukocyte Esterase (Negative) Urine Opiates Screen (NotDetected) Ur Oxycodone Screen (NotDetected) Urine Methadone Screen (NotDetected) Ur Propoxyphene Screen (NotDetected) Ur Barbiturates Screen (NotDetected) U Tricyclic Antidepress (NotDetected) Ur Phencyclidine Scrn (NotDetected) Ur Amphetamines Screen (NotDetected) U Methamphetamines Scrn (NotDetected) U Benzodiazepines Scrn (NotDetected) Urine Cocaine Screen (NotDetected) U Marijuana (THC) Screen (NotDetected) Serum Alcohol mg/dL Disposition Clinical Impression: Pseudoseizures, Seizure disorder Disposition: HOME SELF-CARE Condition: Good Instructions: Recurrent Seizures in Adults (ED) Referrals: Balwinder Lozano MD [Primary Care Provider] - 1-2 days Time of Disposition: 20:51
[2017-03-15 19:48] LABS: Appearance,Urine Clear (Clear); Bilirubin,Urine Negative (Negative); Glucose,Urine (UA) Negative (Negative); Ketones,Urine Negative (Negative); Leukocyte Esterase,Urine Negative (Negative); Nitrite,Urine Negative (Negative); PH, Urine 5.5 (5.0-8.0); Protein,Urine Negative (Negative); Specific Gravity,Urine 1.013 (1.001-1.035); UA Billing (MACRO vs. MICRO) CHEM; Urobilinogen,Urine <2.0 mg/dL (<2.0)
[2017-03-15 20:06] LABS: Basophils % (A) 1 %; CH 30.8; CHCM 34.5; Eosinophils # (A) 0.1 k/uL (0-0.7); Eosinophils % (A) 1 %; HCT 44.1 % (34.0-46.0); HDW 2.37; HGB 14.9 gm/dL (11.4-16.0); Luc # (Auto) 0.17; Luc % (Auto) 2; Lymphocytes # (A) 2.4 k/uL (1.0-4.8); Lymphocytes % (A) 25 %; MCH 30.3 pg (25.0-35.0); MCHC 33.8 g/dL (31.0-37.0); MCV 89.7 fL (80.0-100.0); Mean Platelet Volume 6.7; Monocytes # (A) 0.5 k/uL (0-1.0); Monocytes % (A) 5 %; Neutrophils # (A) 6.3 k/uL (1.3-7.7); Neutrophils % (A) 67 %; RBC 4.92 m/uL (3.80-5.40); RDW 12.5 % (11.5-15.5); WBC 9.4 k/uL (3.8-10.6); WBC (Perox) 9.19
[2017-03-15 20:21] LABS: ALT 35 U/L (9-52); AST 26 U/L (14-36); Alcohol <10 mg/dL; Alkaline Phosphatase 59 U/L (38-126); Anion Gap 10 mmol/L; Blood Urea Nitrogen 10 mg/dL (7-17); Calcium 9.5 mg/dL (8.4-10.2); Carbon Dioxide 22 mmol/L (22-30); Chloride 105 mmol/L (98-107); Creatine Kinase 35 U/L (30-135); Glucose 87 mg/dL (74-99); Non-African American GFR(MDRD) >60 (>60 ml/min/1.73 sqM); Potassium 4.5 mmol/L (3.5-5.1); Sodium 137 mmol/L (137-145); Total Bilirubin 0.2 mg/dL (0.2-1.3); Total Protein 6.5 g/dL (6.3-8.2)
[2017-03-15 20:58] VITALS: BP 110/67; PULSE 68; TEMP 97.8
== END 2017-03-15 20:57 | disposition home or self-care (01) ==
LOC: EC 19:01
DX: G40.909 Epilepsy, unspecified, not intractable, without status epilepticus (principal); M79.7 Fibromyalgia; F17.200 Nicotine dependence, unspecified, uncomplicated; Z86.73 Personal history of transient ischemic attack (TIA), and cerebral infarction without residual deficits; Z88.0 Allergy status to penicillin; Z88.1 Allergy status to other antibiotic agents; Z88.8 Allergy status to other drugs, medicaments and biological substances; Z91.018 Allergy to other foods; Z91.048 Other nonmedicinal substance allergy status; Z79.02 Long term (current) use of antithrombotics/antiplatelets; Z79.891 Long term (current) use of opiate analgesic; Z79.899 Other long term (current) drug therapy
CPT/HCPCS: 36415; 80053; 80306; 80320; 81003; 82550; 83605; 85025; 93005; 96360; 99284

== ENCOUNTER 2017-06-09 21:42 | Emergency (ER) | payer MEDICARE, OTHER ==
[2017-06-09 21:57] VITALS: RESP 18
[2017-06-09] MEDS ORDERED: KETOROLAC 30 MG/ML 1 ML VIAL IM STA (23:46)
[2017-06-09] MEDS ORDERED: MORPHINE SULFATE 5 MG/ML SYRINGE IM STA (23:46)
--- NOTE | 2017-06-10 00:52 | CT ---
EXAMINATION TYPE: CT lumbar spine wo con DATE OF EXAM: 06/10/2017 12:41 AM COMPARISON: NONE HISTORY: Prior MR on [facility] 2015, patient had pain injection 06/09/17, pain and swelling to injection site and pain to right leg CT DLP: 576.50 mGycm Automated exposure control for dose reduction was used. Unenhanced CT of the lumbar spine was performed. Bone and soft tissue window settings are submitted as well as coronal and sagittal reconstructions. Lumbar vertebra have normal alignment. The facet joints are intact. Posterior elements are intact. Th ere is mild anterior spurring at L2-3 L3-4. There is no sign of spinal stenosis. There are small post erior disc bulge at L4-5. There is no compression fracture. There is no lumbar paraspinal mass. Sacro iliac joints appear normal. I see no focal bone destruction. IMPRESSION: Minimal degenerative spur formation. Small posterior L4-5 disc bulging without evidence of impingemen t on the neural elements. No significant spinal stenosis.
[2017-06-10 01:16] VITALS: BP 119/75; PULSE 62; TEMP 97.2
--- NOTE | 2017-06-10 01:31 | ED ---
Back Pain HPI - General Chief Complaint: Back Pain/Injury Stated Complaint: back pain Time Seen by Provider: 06/09/17 23:26 Source: patient Limitations: no limitations - History of Present Illness Initial Comments: 41-year-old female patient comes to the emergency department today for evaluation of increased lower back pain. Patient states that she did have an epidural injection at her [employer] table ed[employer] office yesterday. She states that she has received these injections numerous times in the past and has not had any problems. She states that throughout the night last night all day today she has had severe lower back pain. She states that the area around the injection site is swollen. She denies any fevers or chills. Denies any loss of bowel or bladder control. Denies any saddle anesthesia. She states that she does have some mild weakness and numbness and tingling in the right leg however this is chronic and not changed. She denies any numbness, tingling , or weakness of the left lower extremity. States that she is able to ambulate however is very painful to do so. She denies any falls or injuries causing an increase in her pain. Patient denies any recent rash, shortness breath, chest pain, abdominal pain, nausea, vomiting, diarrhea, constipation, dizziness, weakness, hematuria, dysuria, urinary urgency, urinary frequency, headache, visual changes, or any other complaints. - Related Data Home Medications Medication Instructions Recorded Confirmed HYDROcodone/APAP 5-325MG [[place] 1 tab PO BID 02/02/16 03/15/17 5-325] Naproxen 500 mg PO BID PRN 02/02/16 03/15/17 Albuterol Sulfate [Ventolin HFA] 2 puff INHALATION RT-QID PRN 10/21/16 03/15/17 Butalb/Asprin/Caff 50-325-40Mg 1 cap PO Q8H PRN 10/21/16 03/15/17 [Fiorinal 50-325-40 MG] Ergocalciferol [Vitamin D2 50,000 unit PO Q7D 10/21/16 03/15/17 (DRISDOL)] Lacosamide [Vimpat] 200 mg PO BID 10/21/16 03/15/17 OXcarbazepine [Trileptal] 600 mg PO BID 10/21/16 03/15/17 Topiramate [Trokendi Xr] 100 mg PO DAILY 02/25/17 03/15/17 Clopidogrel [Plavix] 75 mg PO HS 03/15/17 03/15/17 Allergies Allergy/AdvReac Type Severity Reaction Status Date / Time adhesive Allergy Unknown Verified 06/09/17 21:58 aloe Allergy Unknown Verified 06/09/17 21:58 aloe vera Allergy Unknown Verified 06/09/17 21:58 carbetapentane Allergy Unknown Verified 06/09/17 21:58 castor oil Allergy Unknown Verified 06/09/17 21:58 citalopram hydrobromide Allergy Rash/Hives Verified 06/09/17 21:58 [From Celexa] diethylene glycol Allergy Unknown Verified 06/09/17 21:58 dimethicone Allergy Unknown Verified 06/09/17 21:58 grape Allergy Unknown Verified 06/09/17 21:58 Imidazole Alkylating Agents Allergy Unknown Verified 06/09/17 21:58 iodine Allergy Unknown Verified 06/09/17 21:58 Iodine and Iodide Containing Allergy Unknown Verified 06/09/17 21:58 Produc miconazole [From Monistat 3] Allergy Unknown Verified 06/09/17 21:58 olive extract Allergy Unknown Verified 06/09/17 21:58 olive oil Allergy Unknown Verified 06/09/17 21:58 Penicillins Allergy Rash/Hives Verified 06/09/17 21:58 polyethylene glycol Allergy Unknown Verified 06/09/17 21:58 potassium Allergy Unknown Verified 06/09/17 21:58 propylene glycol Allergy Unknown Verified 06/09/17 21:58 silicone Allergy Unknown Verified 06/09/17 21:58 skin cleanser combination Allergy Unknown Verified 06/09/17 21:58 no.17 [From Monistat 3] sorbitan sesquioleate Allergy Unknown Verified 06/09/17 21:58 [From Polysorb Hydrate] tioconazole Allergy Rash/Hives Verified 06/09/17 21:58 [From Monistat 1 (tioconazole)] vitamin E (d-alpha Allergy Unknown Verified 06/09/17 21:58 tocopherol) Review of Systems ROS Statement: Those systems with pertinent positive or pertinent negative responses have been documented in the HPI. ROS Other: All systems not noted in ROS Statement are negative. Past Medical History Past Medical History: Asthma, CVA/TIA, Fibromyalgia, Memory Impairment, Pneumonia, Seizure Disorder Additional Past Medical History / Comment(s): "RT SIDED WEAKER THAN LT AND I AVE MEMORY PROBLEMS,COMPREHENSION PROBLEMS AT TIMES EPISODES SLURRED SPEECH. CHRONIC BACK/RT LEG PAIN AND RT LEG AT TIMES CAN GIVE OUT ON HER,PAIN, UTI, PEPTIC ULCER DISEASE WHEN YOUNGER, HYPOGLYCEMIA, DDD, MIGARINES, PSEUDOSEIZURES, KIDNEYSTONES History of Any Multi-Drug Resistant Organisms: None Reported Past Surgical History: Tubal Ligation Additional Past Surgical History / Comment(s): RT OVARIAN CYST REMOVED 1993 Past Anesthesia/Blood Transfusion Reactions: No Reported Reaction Additional Past Anesthesia/Blood Transfusion Reaction / Comment(s): CLAUSTERPHOBIA Past Psychological History: Anxiety, Bipolar, Depression Smoking Status: Current every day smoker Past Alcohol Use History: None Reported Past Drug Use History: None Reported - Past Family History Sister(s) Family Medical History: Cancer Father Family Medical History: CVA/TIA, Hypertension Mother Family Medical History: AFIB, Hypertension, Seizure Disorder Additional Family Medical History / Comment(s): HEART PROBLEMS, DEPRESSION General Exam Limitations: no limitations General appearance: alert, in no apparent distress, other (This is a well- developed, well-nourished 41-year-old female patient in no acute distress. Vital signs upon presentation are temperature 98.6F, pulse 97, respirations 18 , blood pressure 134/94, pulse ox 97% on room air.) Eye exam: Present: normal appearance, PERRL, EOMI. Absent: scleral icterus, conjunctival injection, periorbital swelling ENT exam: Present: normal exam, normal oropharynx, mucous membranes moist Neck exam: Present: normal inspection. Absent: tenderness, meningismus, lymphadenopathy Respiratory exam: Present: normal lung sounds bilaterally. Absent: respiratory distress, wheezes, rales, rhonchi, stridor Cardiovascular Exam: Present: regular rate, normal rhythm, normal heart sounds. Absent: systolic murmur, diastolic murmur, rubs, gallop, clicks GI/Abdominal exam: Present: soft, normal bowel sounds. Absent: distended, tenderness, guarding, rebound, rigid Extremities exam: Present: normal inspection, full ROM, normal capillary refill , other (Bilateral lower extremities are pink, warm, and dry. Cap refills less than 3 seconds. Post tibial pulses are 2+ and equal bilaterally. Patient has 4 out of 5 strength in the lower extremities.). Absent: tenderness, pedal edema , joint swelling, calf tenderness Back exam: Present: tenderness (Tenderness over the lower back specifically the lumbar region.), other (There is some mild soft tissue swelling over the lumbar spine. No erythema or drainage noted from puncture site. Skin is equal in temperature to the rest of her back.). Absent: normal inspection Neurological exam: Present: alert, oriented X3, CN II-XII intact Psychiatric exam: Present: normal affect, normal mood Skin exam: Present: warm, dry, intact, normal color. Absent: rash Course Vital Signs 06/09/17 06/09/17 06/10/17 21:54 23:19 01:15 Temperature 98.6 F 97.8 F 97.2 F L Pulse Rate 97 83 62 Respiratory 18 18 18 Rate Blood Pressure 134/94 116/59 119/75 O2 Sat by Pulse 97 98 97 Oximetry Medical Decision Making - Medical Decision Making 41-year-old female patient presented to the emergency department today for complaints of increased back pain after receiving epidural spinal injections at her [employer] table [employer]'s office. Physical examination did reveal some minor soft tissue swelling and tenderness over the lumbar spine. There was no evidence of superficial infectious process. Patient is afebrile, other vitals are stable. Due to the tenderness and recent injection we did perform computed tomography scan of the lumbar spine which was negative for any acute process. She did have good pain relief with injection of Toradol and Morphine here in the emergency department. Patient will be discharged home to continue taking her home pain medications. She is instructed to follow-up with her [employer] and table [employer]ger as soon as possible. She is instructed to return here immediately for any new, worsening, or concerning symptoms. She verbalizes understanding and agrees with this plan. - Radiology Data Radiology results: report reviewed, image reviewed CT of the lumbar spine was performed. Lumbar vertebrae have normal alignment. The facet joints are intact. Posterior elements are intact. There is mild anterior spurring altitude to L3, L3 to L4. There is no sign of spinal stenosis. There are small posterior disc bulge at L4 to 5. There is no compression fracture. There is no lumbar paraspinal mass. Sacroiliac joints appear normal. I do no focal bone destruction. Impression by Dr. Miranda shows minimal degenerative spur formation. Small posterior L4 to 5 disc bulging without evidence of impingement on the neural elements. No significant spinal stenosis. Disposition Clinical Impression: Acute low back pain Disposition: HOME SELF-CARE Condition: Good Instructions: Acute Low Back Pain (ED) Additional Instructions: Follow-up with Dr. Davis for further evaluation. Take your home pain medications as directed. Return here immediately for any new, worsening, or concerning symptoms. Referrals: Balwinder Lozano MD [Primary Care Provider] - 1-2 days Time of Disposition: 01:31
== END 2017-06-10 01:38 | disposition home or self-care (01) ==
LOC: EC 21:42
DX: M54.5 Low back pain (principal); M79.7 Fibromyalgia; G40.909 Epilepsy, unspecified, not intractable, without status epilepticus; F31.9 Bipolar disorder, unspecified; F41.9 Anxiety disorder, unspecified; F17.200 Nicotine dependence, unspecified, uncomplicated; Z79.01 Long term (current) use of anticoagulants; Z79.899 Other long term (current) drug therapy; Z91.041 Radiographic dye allergy status; Z91.048 Other nonmedicinal substance allergy status; Z88.8 Allergy status to other drugs, medicaments and biological substances; Z88.0 Allergy status to penicillin; Z91.018 Allergy to other foods
CPT/HCPCS: 72131; 99284; 96372 ×2; J1885; J2274

== ENCOUNTER → 2017-06-18 | Outpatient (CLI) | payer MEDICARE, OTHER ==
[2017-06-18 11:43] LABS: Basophils % (A) 0 %; Eosinophils # (A) 0.1 k/uL (0-0.7); Eosinophils % (A) 1 %; HCT 47.7 % (34.0-46.0); HGB 15.4 gm/dL (11.4-16.0); Lymphocytes # (A) 2.1 k/uL (1.0-4.8); Lymphocytes % (A) 20 %; MCH 30.2 pg (25.0-35.0); MCHC 32.3 g/dL (31.0-37.0); MCV 93.2 fL (80.0-100.0); Mean Platelet Volume 7.1; Monocytes # (A) 0.5 k/uL (0-1.0); Monocytes % (A) 4 %; Neutrophils # (A) 7.7 k/uL (1.3-7.7); Neutrophils % (A) 74 %; Platelet Count 254 k/uL (150-450); RBC 5.12 m/uL (3.80-5.40); RDW 12.6 % (11.5-15.5); WBC 10.5 k/uL (3.8-10.6)
[2017-06-18 12:02] LABS: ALT 34 U/L (9-52); AST 14 U/L (14-36); Albumin 3.6 g/dL (3.5-5.0); Alkaline Phosphatase 48 U/L (38-126); Anion Gap 7 mmol/L; Blood Urea Nitrogen 8 mg/dL (7-17); Calcium 9.1 mg/dL (8.4-10.2); Carbon Dioxide 27 mmol/L (22-30); Chloride 106 mmol/L (98-107); Glucose 81 mg/dL (74-99); Potassium 4.7 mmol/L (3.5-5.1); Sodium 140 mmol/L (137-145); Total Bilirubin 0.3 mg/dL (0.2-1.3); Total Protein 5.7 g/dL (6.3-8.2)
[2017-06-18 12:19] LABS: T4, Free (Free Thyroxine) 1.14 ng/dL (0.78-2.19)
[2017-06-18 15:27] LABS: Vitamin D 25 Hydroxy 11.3 ng/mL (30.0-100.0)
== END | disposition home or self-care (01) ==
LOC: LABWHC1 10:53
PROVIDERS: ATTEND Nurse Practitioner Acute Care
DX: E55.9 Vitamin D deficiency, unspecified (principal); R41.3 Other amnesia
CPT/HCPCS: 36415; 80053; 82306; 82607; 84207; 84439; 84443; 84481; 85025

== ENCOUNTER → 2017-07-08 | Outpatient (CLI) | payer MEDICARE, OTHER ==
--- NOTE | 2017-07-08 17:03 | MR ---
EXAMINATION TYPE: MR cervical spine wo con DATE OF EXAM: 07/08/2017 COMPARISON: NONE HISTORY: Cervicalgia TECHNIQUE: Multiplanar, multisequence images of the cervical spine were acquired. Some disc desiccation is present C2-3. Remaining disc heights and disc hydration levels are preserved . C2-C3: No evidence for degenerative disc disease. No disc bulge/herniation or protrusion. No Canal stenosis. Foramina are patent bilaterally. C3-C4: No evidence for degenerative disc disease. No disc bulge/herniation or protrusion. No Canal stenosis. Foramina are patent bilaterally. C4-C5: No evidence for degenerative disc disease. No disc bulge/herniation or protrusion. No Canal stenosis. Foramina are patent bilaterally. C5-C6: No evidence for degenerative disc disease. No disc bulge/herniation or protrusion. No Canal stenosis. Foramina are patent bilaterally. C6-C7: Tiny central protrusion is present C6-7 with minimal anterior thecal sac contact. No AP spinal canal stenosis is present. No cord contact is evident. C7-T1: No evidence for degenerative disc disease. No disc bulge/herniation or protrusion. No Canal stenosis. Foramina are patent bilaterally. Cervical segments are intact. There is normal alignment. Cervical spinal cord is of normal signal. Craniovertebral junction relationships are within normal limits. IMPRESSION: Minimal disc bulge C6-7 with anterior thecal sac compression. No spinal canal stenosis or cord contac t is evident.
== END | disposition home or self-care (01) ==
LOC: RADMRIMAIN 08:34
PROVIDERS: ATTEND Nurse Practitioner Acute Care
DX: M50.223 Other cervical disc displacement at C6-C7 level (principal)
CPT/HCPCS: 72141

== ENCOUNTER 2017-07-21 09:24 | Emergency (ER) | payer MEDICARE, OTHER ==
[2017-07-21] MEDS ORDERED: SODIUM CHLORIDE 0.9% 1,000 ML IV STA (10:02)
[2017-07-21] MEDS ORDERED: METOCLOPRAMIDE 5 MG/ML 2 ML VIAL IVP STA (10:03)
[2017-07-21] MEDS ORDERED: ACETAMINOPHEN TAB 500 MG TAB PO STA (10:03)
[2017-07-21] MEDS ORDERED: KETOROLAC 30 MG/ML 1 ML VIAL IVP STA (10:03)
[2017-07-21] MEDS ORDERED: diphenhydrAMINE 50 MG/ML 1 ML VIAL IVP STA (10:03)
--- NOTE | 2017-07-21 10:05 | ED ---
Seizure HPI - General Chief Complaint: Seizure Stated Complaint: Seizure Time Seen by Provider: 07/21/17 09:46 Source: patient, RN notes reviewed, old records reviewed Mode of arrival: wheelchair Limitations: no limitations - History of Present Illness Initial Comments: 41-year-old female presents today with chief complaint of migraine headache and dizziness as well as a seizure like episode today. Patient reports that she's been evaluated with multiple doctors in conclusion she's been dizzy. They are unsure of its due to low blood pressure possible vertigo. She's been taking meclizine and going physical therapy to help manage the vertigo symptoms but nothing since he working. She reports that she started to have a severe migraine today from the back for head. She reports that when she has a bad migraine she starts to develop "pseudoseizures. - Related Data Home Medications Medication Instructions Recorded Confirmed HYDROcodone/APAP 5-325MG [[place] 1 tab PO BID PRN 02/02/16 07/21/17 5-325] Naproxen 500 mg PO BID PRN 02/02/16 07/21/17 Albuterol Sulfate [Ventolin HFA] 2 puff INHALATION RT-QID PRN 10/21/16 07/21/17 Butalb/Asprin/Caff 50-325-40Mg 1 cap PO Q8H PRN 10/21/16 07/21/17 [Fiorinal 50-325-40 MG] Ergocalciferol [Vitamin D2 50,000 unit PO Q7D 10/21/16 07/21/17 (DRISDOL)] OXcarbazepine [Trileptal] 600 mg PO BID 10/21/16 07/21/17 Topiramate [Trokendi Xr] 100 mg PO HS 02/25/17 07/21/17 Clopidogrel [Plavix] 75 mg PO HS 03/15/17 07/21/17 LORazepam [Ativan] 1 mg PO DAILY PRN 07/21/17 07/21/17 Meclizine [Antivert] 25 mg PO BID PRN 07/21/17 07/21/17 Previous Rx's Medication Instructions Recorded diphenhydrAMINE [Benadryl] 25 mg PO BID PRN #20 capsule 07/21/17 Allergies Allergy/AdvReac Type Severity Reaction Status Date / Time adhesive Allergy Unknown Verified 07/21/17 10:27 aloe Allergy Unknown Verified 07/21/17 10:27 aloe vera Allergy Unknown Verified 07/21/17 10:27 carbetapentane Allergy Unknown Verified 07/21/17 10:27 castor oil Allergy Unknown Verified 07/21/17 10:27 citalopram hydrobromide Allergy Rash/Hives Verified 07/21/17 10:27 [From Celexa] diethylene glycol Allergy Unknown Verified 07/21/17 10:27 dimethicone Allergy Unknown Verified 07/21/17 10:27 grape Allergy Unknown Verified 07/21/17 10:27 Imidazole Alkylating Agents Allergy Unknown Verified 07/21/17 10:27 iodine Allergy Unknown Verified 07/21/17 10:27 Iodine and Iodide Containing Allergy Unknown Verified 07/21/17 10:27 Produc miconazole [From Monistat 3] Allergy Unknown Verified 07/21/17 10:27 olive extract Allergy Unknown Verified 07/21/17 10:27 olive oil Allergy Unknown Verified 07/21/17 10:27 Penicillins Allergy Rash/Hives Verified 07/21/17 10:27 polyethylene glycol Allergy Unknown Verified 07/21/17 10:27 potassium Allergy Unknown Verified 07/21/17 10:27 propylene glycol Allergy Unknown Verified 07/21/17 10:27 silicone Allergy Unknown Verified 07/21/17 10:27 skin cleanser combination Allergy Unknown Verified 07/21/17 10:27 no.17 [From Monistat 3] sorbitan sesquioleate Allergy Unknown Verified 07/21/17 10:27 [From Polysorb Hydrate] tioconazole Allergy Rash/Hives Verified 07/21/17 10:27 [From Monistat 1 (tioconazole)] vitamin E (d-alpha Allergy Unknown Verified 07/21/17 10:27 tocopherol) Review of Systems ROS Statement: Those systems with pertinent positive or pertinent negative responses have been documented in the HPI. ROS Other: All systems not noted in ROS Statement are negative. Past Medical History Past Medical History: Asthma, CVA/TIA, Fibromyalgia, Memory Impairment, Pneumonia, Seizure Disorder Additional Past Medical History / Comment(s): "RT SIDED WEAKER THAN LT AND I AVE MEMORY PROBLEMS,COMPREHENSION PROBLEMS AT TIMES EPISODES SLURRED SPEECH. CHRONIC BACK/RT LEG PAIN AND RT LEG AT TIMES CAN GIVE OUT ON HER,PAIN, UTI, PEPTIC ULCER DISEASE WHEN YOUNGER, HYPOGLYCEMIA, DDD, MIGARINES, PSEUDOSEIZURES, KIDNEYSTONES History of Any Multi-Drug Resistant Organisms: None Reported Past Surgical History: Tubal Ligation Additional Past Surgical History / Comment(s): RT OVARIAN CYST REMOVED 1993 Past Anesthesia/Blood Transfusion Reactions: No Reported Reaction Additional Past Anesthesia/Blood Transfusion Reaction / Comment(s): CLAUSTERPHOBIA Past Psychological History: Anxiety, Bipolar, Depression Smoking Status: Current every day smoker Past Alcohol Use History: None Reported Past Drug Use History: None Reported - Past Family History Sister(s) Family Medical History: Cancer Father Family Medical History: CVA/TIA, Hypertension Mother Family Medical History: AFIB, Hypertension, Seizure Disorder Additional Family Medical History / Comment(s): HEART PROBLEMS, DEPRESSION General Exam - General Exam Comments Initial Comments: 41 year old female, no distress. alert and oriented. Limitations: no limitations General appearance: alert, in no apparent distress Head exam: Present: atraumatic, normocephalic, normal inspection Eye exam: Present: normal appearance, PERRL, EOMI. Absent: scleral icterus, conjunctival injection, periorbital swelling ENT exam: Present: normal exam Neck exam: Present: normal inspection. Absent: tenderness, meningismus, lymphadenopathy Respiratory exam: Present: normal lung sounds bilaterally. Absent: respiratory distress, wheezes, rales, rhonchi, stridor Cardiovascular Exam: Present: regular rate, normal rhythm, normal heart sounds. Absent: systolic murmur, diastolic murmur, rubs, gallop, clicks GI/Abdominal exam: Present: soft, normal bowel sounds. Absent: distended, tenderness, guarding, rebound, rigid Neurological exam: Present: alert, oriented X3, CN II-XII intact Psychiatric exam: Present: normal affect, normal mood Skin exam: Present: warm, dry, intact, normal color. Absent: rash Course Vital Signs 07/21/17 07/21/17 07/21/17 09:26 10:04 11:44 Temperature 98.2 F 98.8 F Pulse Rate 101 H 77 69 Respiratory 18 18 20 Rate Blood Pressure 125/87 130/59 122/71 O2 Sat by Pulse 98 97 98 Oximetry 07/21/17 12:49 Temperature 98.7 F Pulse Rate 83 Respiratory 16 Rate Blood Pressure 110/65 O2 Sat by Pulse 98 Oximetry Medical Decision Making - Medical Decision Making Patient is a 41-year-old female for complaining of migraine headache and vertigo dizziness. She's been on multiple medications to manage your vertigo. Patient said she occasionally gets pseudo seizures due to migraines. She arrives and she's not post it all over and oriented. She does complain of a mild migraine. This is no different than previous migraines. She was given a migraine cocktail and his restingComfortably in bed. She states that she feels better this time like to be discharged home. I just got the chance to follow up with her primary care physician in neurologist. She does have an appointment in one week. She has no focal neurological findings. No other times. Just to complain of some assurance of breath however lungs are clear, . Labs, ekg, chest x-ray shows no abnormalities. - Lab Data Result diagrams: 07/21/17 10:42 07/21/17 10:42 Lab Results 07/21/17 07/21/17 07/21/17 Range/Units 10:42 10:42 10:42 WBC 7.8 (3.8-10.6) k/uL RBC 4.63 (3.80-5.40) m/uL Hgb 14.0 (11.4-16.0) gm/dL Hct 43.2 (34.0-46.0) % MCV 93.2 (80.0-100.0) fL MCH 30.3 (25.0-35.0) pg MCHC 32.5 (31.0-37.0) g/dL RDW 12.3 (11.5-15.5) % Plt Count 239 (150-450) k/uL Neutrophils % 68 % Lymphocytes % 25 % Monocytes % 5 % Eosinophils % 1 % Basophils % 0 % Neutrophils # 5.3 (1.3-7.7) k/uL Lymphocytes # 1.9 (1.0-4.8) k/uL Monocytes # 0.4 (0-1.0) k/uL Eosinophils # 0.1 (0-0.7) k/uL Basophils # 0.0 (0-0.2) k/uL Sodium 140 (137-145) mmol/L Potassium 4.3 (3.5-5.1) mmol/L Chloride 108 H (98-107) mmol/L Carbon Dioxide 26 (22-30) mmol/L Anion Gap 6 mmol/L BUN 5 L (7-17) mg/dL Creatinine 0.60 (0.52-1.04) mg/dL Est GFR (MDRD) Af Amer >60 (>60 ml/min/1.73 sqM) Est GFR (MDRD) Non-Af >60 (>60 ml/min/1.73 sqM) Glucose 87 (74-99) mg/dL Calcium 8.9 (8.4-10.2) mg/dL Total Bilirubin 0.3 (0.2-1.3) mg/dL AST 13 L (14-36) U/L ALT 17 (9-52) U/L Alkaline Phosphatase 45 (38-126) U/L Total Protein 5.9 L (6.3-8.2) g/dL Albumin 3.7 (3.5-5.0) g/dL Urine Color Yellow Urine Appearance Cloudy H (Clear) Urine pH 6.5 (5.0-8.0) Ur Specific [place] 1.008 (1.001-1.035) Urine Protein Negative (Negative) Urine Glucose (UA) Negative (Negative) Urine Ketones Negative (Negative) Urine Blood Negative (Negative) Urine Nitrite Negative (Negative) Urine Bilirubin Negative (Negative) Urine Urobilinogen <2.0 (<2.0) mg/dL Ur Leukocyte Esterase Negative (Negative) Urine WBC 2 (0-5) /hpf Ur Squamous Epith Cells 4 (0-4) /hpf Urine Bacteria Rare H (None) /hpf Urine Mucus Rare H (None) /hpf Urine Opiates Screen Detected H (NotDetected) Ur Oxycodone Screen Not Detected (NotDetected) Urine Methadone Screen Not Detected (NotDetected) Ur Propoxyphene Screen Not Detected (NotDetected) Ur Barbiturates Screen Not Detected (NotDetected) U Tricyclic Antidepress Not Detected (NotDetected) Ur Phencyclidine Scrn Not Detected (NotDetected) Ur Amphetamines Screen Not Detected (NotDetected) U Methamphetamines Scrn Not Detected (NotDetected) U Benzodiazepines Scrn Not Detected (NotDetected) Urine Cocaine Screen Not Detected (NotDetected) U Marijuana (THC) Screen Not Detected (NotDetected) - EKG Data EKG Comments: Chest x-ray is negative for any acute process. 07/21/17 11:16 EKG shows normal sinus rhythm with sinus arrhythmia, MINIMAL voltage criteria for LVH. Possible anterior infarct age undetermined. Ventricular rate 61 bpm. OH interval is 1:30 milliseconds. QRS duration 90 ms. - Radiology Data Radiology results: report reviewed Disposition Clinical Impression: Migraine, Vertigo Disposition: HOME SELF-CARE Condition: Good Instructions: Migraine Headache (ED) Additional Instructions: Patient advised to rest, increase her fluid intake. Follow-up with primary care provider and neurology. Return to ED if any alarming signs or symptoms occur. Prescriptions: diphenhydrAMINE [Benadryl] 25 mg PO BID PRN #20 capsule PRN Reason: Headache Referrals: Balwinder Lozano MD [Primary Care Provider] - 1-2 days Time of Disposition: 12:29
[2017-07-21] MEDS ORDERED: SODIUM CHLORIDE 0.9% 1,000 ML IV SCH (10:15)
[2017-07-21 10:56] LABS: Basophils % (A) 0 %; Eosinophils # (A) 0.1 k/uL (0-0.7); Eosinophils % (A) 1 %; HCT 43.2 % (34.0-46.0); Lymphocytes # (A) 1.9 k/uL (1.0-4.8); Lymphocytes % (A) 25 %; MCH 30.3 pg (25.0-35.0); MCHC 32.5 g/dL (31.0-37.0); MCV 93.2 fL (80.0-100.0); Mean Platelet Volume 7.2; Monocytes # (A) 0.4 k/uL (0-1.0); Monocytes % (A) 5 %; Neutrophils # (A) 5.3 k/uL (1.3-7.7); Neutrophils % (A) 68 %; Platelet Count 239 k/uL (150-450); RBC 4.63 m/uL (3.80-5.40); RDW 12.3 % (11.5-15.5); WBC 7.8 k/uL (3.8-10.6)
[2017-07-21 10:59] LABS: Appearance,Urine Cloudy (Clear); Bacteria,Urine Rare /hpf; Bilirubin,Urine Negative (Negative); Blood,Urine Negative (Negative); Color,Urine Yellow; Glucose,Urine (UA) Negative (Negative); Ketones,Urine Negative (Negative); Leukocyte Esterase,Urine Negative (Negative); Mucus,Urine Rare /hpf; Nitrite,Urine Negative (Negative); PH, Urine 6.5 (5.0-8.0); Protein,Urine Negative (Negative); Specific Gravity,Urine 1.008 (1.001-1.035); Squamous Epithelial Cell,Urine 4 /hpf (0-4); Urobilinogen,Urine <2.0 mg/dL (<2.0); WBC,Urine 2 /hpf (0-5)
--- NOTE | 2017-07-21 11:12 | XR ---
EXAMINATION TYPE: XR chest 2V DATE OF EXAM: 07/21/2017 COMPARISON: 10/21/2016 HISTORY: 41-year-old female with pain TECHNIQUE: AP and lateral views FINDINGS: The cardiomediastinal silhouette, aorta, and pulmonary vasculature are within normal limits. Lungs an d pleural spaces are clear. IMPRESSION: No acute cardiopulmonary process.
[2017-07-21 11:13] LABS: ALT 17 U/L (9-52); AST 13 U/L (14-36); Albumin 3.7 g/dL (3.5-5.0); Alkaline Phosphatase 45 U/L (38-126); Anion Gap 6 mmol/L; Blood Urea Nitrogen 5 mg/dL (7-17); Calcium 8.9 mg/dL (8.4-10.2); Carbon Dioxide 26 mmol/L (22-30); Chloride 108 mmol/L (98-107); Glucose 87 mg/dL (74-99); Potassium 4.3 mmol/L (3.5-5.1); Sodium 140 mmol/L (137-145); Total Bilirubin 0.3 mg/dL (0.2-1.3); Total Protein 5.9 g/dL (6.3-8.2)
[2017-07-21 11:20] LABS: Amphetamine Screen,Urine Not Detected (NotDetected); Barbiturate Screen,Urine Not Detected (NotDetected); Benzodiazepines Screen,Urine Not Detected (NotDetected); Cocaine Screen,Urine Not Detected (NotDetected); Methadone Screen, Urine Not Detected (NotDetected); Opiate Screen,Urine Detected (NotDetected); Oxycodone Screen, Urine Not Detected (NotDetected); Phencyclidine Screen,Urine Not Detected (NotDetected); Tricyclic Antidepressant,Urine Not Detected (NotDetected); Urn Cannabinoid Scrn Not Detected (NotDetected)
[2017-07-21 12:49] VITALS: BP 110/65; PULSE 83; RESP 16; TEMP 98.7
== END 2017-07-21 12:50 | disposition home or self-care (01) ==
LOC: EC 09:24
DX: G43.909 Migraine, unspecified, not intractable, without status migrainosus (principal); R42 Dizziness and giddiness; G40.909 Epilepsy, unspecified, not intractable, without status epilepticus; F17.200 Nicotine dependence, unspecified, uncomplicated; Z86.73 Personal history of transient ischemic attack (TIA), and cerebral infarction without residual deficits; Z91.048 Other nonmedicinal substance allergy status; Z88.8 Allergy status to other drugs, medicaments and biological substances; Z91.018 Allergy to other foods; Z88.0 Allergy status to penicillin; Z91.09 Other allergy status, other than to drugs and biological substances; Z88.3 Allergy status to other anti-infective agents; Z79.02 Long term (current) use of antithrombotics/antiplatelets; Z79.899 Other long term (current) drug therapy
CPT/HCPCS: 99284; 96374; 96375 ×2; 96361 ×2; 36415; 93005; 80053; 85025; 81001; 80306; 71046; J1200; J2765; J1885

== ENCOUNTER 2017-11-26 00:24 | Observation (INO) | payer MEDICARE, OTHER ==
[2017-11-26] MEDS ORDERED: ONDANSETRON 4 MG/2 ML VIAL IVP STA (00:49)
[2017-11-26] MEDS ORDERED: SODIUM CHLORIDE 0.9% 1,000 ML IV STA (00:49)
--- NOTE | 2017-11-26 01:31 | ED ---
General Adult HPI - General Chief complaint: Upper Respiratory Infection Stated complaint: Nausea, vomiting Time Seen by Provider: 11/26/17 00:43 Source: patient, family, RN notes reviewed Mode of arrival: wheelchair Limitations: no limitations - History of Present Illness Initial comments: Patient 42-year-old female presented to the emergency room today with a chief complaint of nausea vomiting with cough congestion that started this morning. Son at bedside stating that he had similar symptoms yesterday. Patient admits that been unable to keep anything down. Does have a history of pseudoseizures and states anytime she gets sick that she seems to have increased seizures. Patient denies any specific abdominal pain. Patient admits to feeling some chest discomfort earlier. Denies any other complaints or symptoms at this time. Patient denies any recent fever, chills, shortness of breath, chest pain, back pain, numbness or tingling, dysuria or hematuria, constipation or diarrhea , headaches or visual changes, or any other complaints. - Related Data Home Medications Medication Instructions Recorded Confirmed HYDROcodone/APAP 5-325MG [[place] 1 tab PO BID PRN 02/02/16 07/21/17 5-325] Naproxen 500 mg PO BID PRN 02/02/16 07/21/17 Albuterol Sulfate [Ventolin HFA] 2 puff INHALATION RT-QID PRN 10/21/16 07/21/17 Butalb/Asprin/Caff 50-325-40Mg 1 cap PO Q8H PRN 10/21/16 07/21/17 [Fiorinal 50-325-40 MG] Ergocalciferol [Vitamin D2 50,000 unit PO Q7D 10/21/16 07/21/17 (DRISDOL)] OXcarbazepine [Trileptal] 600 mg PO BID 10/21/16 07/21/17 Topiramate [Trokendi Xr] 100 mg PO HS 02/25/17 07/21/17 Clopidogrel [Plavix] 75 mg PO HS 03/15/17 07/21/17 LORazepam [Ativan] 1 mg PO DAILY PRN 07/21/17 07/21/17 Meclizine [Antivert] 25 mg PO BID PRN 07/21/17 07/21/17 Previous Rx's Medication Instructions Recorded diphenhydrAMINE [Benadryl] 25 mg PO BID PRN #20 capsule 07/21/17 Allergies Allergy/AdvReac Type Severity Reaction Status Date / Time adhesive Allergy Unknown Verified 11/26/17 00:28 aloe Allergy Unknown Verified 11/26/17 00:28 aloe vera Allergy Unknown Verified 11/26/17 00:28 carbetapentane Allergy Unknown Verified 11/26/17 00:28 castor oil Allergy Unknown Verified 11/26/17 00:28 citalopram hydrobromide Allergy Rash/Hives Verified 11/26/17 00:28 [From Celexa] diethylene glycol Allergy Unknown Verified 11/26/17 00:28 dimethicone Allergy Unknown Verified 11/26/17 00:28 grape Allergy Unknown Verified 11/26/17 00:28 Imidazole Alkylating Agents Allergy Unknown Verified 11/26/17 00:28 iodine Allergy Unknown Verified 11/26/17 00:28 Iodine and Iodide Containing Allergy Unknown Verified 11/26/17 00:28 Produc miconazole [From Monistat 3] Allergy Unknown Verified 11/26/17 00:28 olive extract Allergy Unknown Verified 11/26/17 00:28 olive oil Allergy Unknown Verified 11/26/17 00:28 Penicillins Allergy Rash/Hives Verified 11/26/17 00:28 polyethylene glycol Allergy Unknown Verified 11/26/17 00:28 potassium Allergy Unknown Verified 11/26/17 00:28 propylene glycol Allergy Unknown Verified 11/26/17 00:28 silicone Allergy Unknown Verified 11/26/17 00:28 skin cleanser combination Allergy Unknown Verified 11/26/17 00:28 no.17 [From Monistat 3] sorbitan sesquioleate Allergy Unknown Verified 11/26/17 00:28 [From Polysorb Hydrate] tioconazole Allergy Rash/Hives Verified 11/26/17 00:28 [From Monistat 1 (tioconazole)] vitamin E (d-alpha Allergy Unknown Verified 11/26/17 00:28 tocopherol) Review of Systems ROS Statement: Those systems with pertinent positive or pertinent negative responses have been documented in the HPI. ROS Other: All systems not noted in ROS Statement are negative. Past Medical History Past Medical History: Asthma, CVA/TIA, Fibromyalgia, Memory Impairment, Pneumonia, Seizure Disorder Additional Past Medical History / Comment(s): "RT SIDED WEAKER THAN LT AND I AVE MEMORY PROBLEMS,COMPREHENSION PROBLEMS AT TIMES EPISODES SLURRED SPEECH. CHRONIC BACK/RT LEG PAIN AND RT LEG AT TIMES CAN GIVE OUT ON HER,PAIN, UTI, PEPTIC ULCER DISEASE WHEN YOUNGER, HYPOGLYCEMIA, DDD, MIGARINES, PSEUDOSEIZURES, KIDNEYSTONES History of Any Multi-Drug Resistant Organisms: None Reported Past Surgical History: Tubal Ligation Additional Past Surgical History / Comment(s): RT OVARIAN CYST REMOVED 1993 Past Anesthesia/Blood Transfusion Reactions: No Reported Reaction Additional Past Anesthesia/Blood Transfusion Reaction / Comment(s): CLAUSTERPHOBIA Past Psychological History: Anxiety, Bipolar, Depression Smoking Status: Current every day smoker Past Alcohol Use History: None Reported Past Drug Use History: None Reported - Past Family History Sister(s) Family Medical History: Cancer Father Family Medical History: CVA/TIA, Hypertension Mother Family Medical History: AFIB, Hypertension, Seizure Disorder Additional Family Medical History / Comment(s): HEART PROBLEMS, DEPRESSION General Exam - General Exam Comments Initial Comments: General: The patient is awake and alert, in no distress, and does not appear acutely ill. Eye: Pupils are equal, round and reactive to light, extra-ocular movements are intact. No nystagmus. There is normal conjunctiva bilaterally. No signs of icterus. Ears, nose, mouth and throat: There are moist mucous membranes and no oral lesions. Neck: The neck is supple, there is no tenderness or JVD. Cardiovascular: There is a regular rate and rhythm. No murmur, rub or gallop is appreciated. Respiratory: Lungs are clear to auscultation, respirations are non-labored, breath sounds are equal. No wheezes, stridor, rales, or rhonchi. Gastrointestinal: Soft, non-distended, non-tender abdomen without masses or organomegaly noted. There is no rebound or guarding present. No CVA tenderness. Musculoskeletal: Normal ROM, no tenderness. Strength 5/5. Sensation intact. Pulses equal bilaterally 2+. Neurological: A&O x 3. CN II-XII intact, There are no obvious motor or sensory deficits. Coordination appears grossly intact. Speech is normal. Skin: Skin is warm and dry and no rashes or lesions are noted. Psychiatric: Cooperative, appropriate mood & affect, normal judgment. Limitations: no limitations Course Vital Signs 11/26/17 11/26/17 00:26 03:20 Temperature 99.1 F Pulse Rate 115 H 99 Respiratory 18 Rate Blood Pressure 108/78 O2 Sat by Pulse 96 100 Oximetry EKG Findings - EKG Comments: EKG Findings:: EKG performed at 0251: Shows normal sinus rhythm 100 at beats per minute. MS interval is 136. QRS is 80. QT/QTc is 334/430. Medical Decision Making - Medical Decision Making Patient reexamined at this time shows no signs of distress. She does admit that she is feeling better here in emergency room. Patient's labs been reviewed. Negative cardiac enzymes. Patient's d-dimer is negative. Chest x- ray negative. Patient's EKG does show some flipped T waves in precordial leads which is a change from previous EKG. Patient's currently resting at this time. Patient will be admitted for observation for serial enzymes. - Lab Data Result diagrams: 11/26/17 01:25 11/26/17 01:25 Lab Results 11/26/17 11/26/17 11/26/17 Range/Units 01:25 01:25 01:25 WBC 10.1 (3.8-10.6) k/uL RBC 4.88 (3.80-5.40) m/uL Hgb 15.0 (11.4-16.0) gm/dL Hct 43.4 (34.0-46.0) % MCV 89.0 (80.0-100.0) fL MCH 30.8 (25.0-35.0) pg MCHC 34.6 (31.0-37.0) g/dL RDW 12.7 (11.5-15.5) % Plt Count 218 (150-450) k/uL Neutrophils % 88 % Lymphocytes % 6 % Monocytes % 4 % Eosinophils % 1 % Basophils % 0 % Neutrophils # 8.9 H (1.3-7.7) k/uL Lymphocytes # 0.7 L (1.0-4.8) k/uL Monocytes # 0.4 (0-1.0) k/uL Eosinophils # 0.1 (0-0.7) k/uL Basophils # 0.0 (0-0.2) k/uL D-Dimer (<0.60) mg/L FEU Sodium 139 (137-145) mmol/L Potassium 4.0 (3.5-5.1) mmol/L Chloride 105 (98-107) mmol/L Carbon Dioxide 25 (22-30) mmol/L Anion Gap 9 mmol/L BUN 7 (7-17) mg/dL Creatinine 0.60 (0.52-1.04) mg/dL Est GFR (CKD-EPI)AfAm >90 (>60 ml/min/1.73 sqM) Est GFR (CKD-EPI)NonAf >90 (>60 ml/min/1.73 sqM) Glucose 94 (74-99) mg/dL Calcium 8.9 (8.4-10.2) mg/dL Total Bilirubin 0.5 (0.2-1.3) mg/dL AST 17 (14-36) U/L ALT 26 (9-52) U/L Alkaline Phosphatase 52 (38-126) U/L Total Creatine Kinase 54 (30-135) U/L CK-MB (CK-2) 0.2 (0.0-2.4) ng/mL CK-MB (CK-2) Rel Index 0.4 Troponin I <0.012 (0.000-0.034) ng/mL Total Protein 6.0 L (6.3-8.2) g/dL Albumin 3.8 (3.5-5.0) g/dL Amylase 49 (30-110) U/L Lipase 26 (23-300) U/L Urine Color Urine Appearance (Clear) Urine pH (5.0-8.0) Ur Specific [place] (1.001-1.035) Urine Protein (Negative) Urine Glucose (UA) (Negative) Urine Ketones (Negative) Urine Blood (Negative) Urine Nitrite (Negative) Urine Bilirubin (Negative) Urine Urobilinogen (<2.0) mg/dL Ur Leukocyte Esterase (Negative) Urine RBC (0-5) /hpf Urine WBC (0-5) /hpf Ur Squamous Epith Cells (0-4) /hpf Urine Mucus (None) /hpf Urine HCG, Qual (Not Detectd) 11/26/17 11/26/17 11/26/17 Range/Units 01:25 02:15 02:15 WBC (3.8-10.6) k/uL RBC (3.80-5.40) m/uL Hgb (11.4-16.0) gm/dL Hct (34.0-46.0) % MCV (80.0-100.0) fL MCH (25.0-35.0) pg MCHC (31.0-37.0) g/dL RDW (11.5-15.5) % Plt Count (150-450) k/uL Neutrophils % % Lymphocytes % % Monocytes % % Eosinophils % % Basophils % % Neutrophils # (1.3-7.7) k/uL Lymphocytes # (1.0-4.8) k/uL Monocytes # (0-1.0) k/uL Eosinophils # (0-0.7) k/uL Basophils # (0-0.2) k/uL D-Dimer 0.22 (<0.60) mg/L FEU Sodium (137-145) mmol/L Potassium (3.5-5.1) mmol/L Chloride (98-107) mmol/L Carbon Dioxide (22-30) mmol/L Anion Gap mmol/L BUN (7-17) mg/dL Creatinine (0.52-1.04) mg/dL Est GFR (CKD-EPI)AfAm (>60 ml/min/1.73 sqM) Est GFR (CKD-EPI)NonAf (>60 ml/min/1.73 sqM) Glucose (74-99) mg/dL Calcium (8.4-10.2) mg/dL Total Bilirubin (0.2-1.3) mg/dL AST (14-36) U/L ALT (9-52) U/L Alkaline Phosphatase (38-126) U/L Total Creatine Kinase (30-135) U/L CK-MB (CK-2) (0.0-2.4) ng/mL CK-MB (CK-2) Rel Index Troponin I (0.000-0.034) ng/mL Total Protein (6.3-8.2) g/dL Albumin (3.5-5.0) g/dL Amylase (30-110) U/L Lipase (23-300) U/L Urine Color Yellow Urine Appearance Cloudy H (Clear) Urine pH 5.5 (5.0-8.0) Ur Specific [place] 1.020 (1.001-1.035) Urine Protein Trace H (Negative) Urine Glucose (UA) Negative (Negative) Urine Ketones 3+ H (Negative) Urine Blood Small H (Negative) Urine Nitrite Negative (Negative) Urine Bilirubin Negative (Negative) Urine Urobilinogen 2.0 (<2.0) mg/dL Ur Leukocyte Esterase Negative (Negative) Urine RBC 3 (0-5) /hpf Urine WBC 1 (0-5) /hpf Ur Squamous Epith Cells 3 (0-4) /hpf Urine Mucus Few H (None) /hpf Urine HCG, Qual Not Detected (Not Detectd) Disposition Clinical Impression: Nausea & vomiting, Chest pain, Cough Disposition: HOME SELF-CARE Condition: Good Is patient prescribed a controlled substance at d/c from ED?: No Referrals: Balwinder Lozano MD [Primary Care Provider] - 1-2 days Time of Disposition: 03:41
[2017-11-26 01:57] LABS: Basophils % (A) 0 %; Eosinophils # (A) 0.1 k/uL (0-0.7); Eosinophils % (A) 1 %; HCT 43.4 % (34.0-46.0); Lymphocytes # (A) 0.7 k/uL (1.0-4.8); Lymphocytes % (A) 6 %; MCH 30.8 pg (25.0-35.0); MCHC 34.6 g/dL (31.0-37.0); Mean Platelet Volume 7.2; Monocytes # (A) 0.4 k/uL (0-1.0); Monocytes % (A) 4 %; Neutrophils # (A) 8.9 k/uL (1.3-7.7); Neutrophils % (A) 88 %; Platelet Count 218 k/uL (150-450); RBC 4.88 m/uL (3.80-5.40); RDW 12.7 % (11.5-15.5); WBC 10.1 k/uL (3.8-10.6)
[2017-11-26 01:58] LABS: ALT 26 U/L (9-52); AST 17 U/L (14-36); Albumin 3.8 g/dL (3.5-5.0); Alkaline Phosphatase 52 U/L (38-126); Amylase 49 U/L (30-110); Anion Gap 9 mmol/L; Blood Urea Nitrogen 7 mg/dL (7-17); Calcium 8.9 mg/dL (8.4-10.2); Carbon Dioxide 25 mmol/L (22-30); Chloride 105 mmol/L (98-107); Glucose 94 mg/dL (74-99); Lipase 26 U/L (23-300); Sodium 139 mmol/L (137-145); Total Bilirubin 0.5 mg/dL (0.2-1.3)
--- NOTE | 2017-11-26 02:04 | XR ---
EXAMINATION TYPE: XR chest 2V DATE OF EXAM: 11/26/2017 COMPARISON: 07/21/2017 HISTORY: Cough difficulty breathing TECHNIQUE: Frontal and lateral views of the chest are obtained. FINDINGS: Heart and mediastinum are normal. Lungs are clear. Diaphragm is normal. Bony thorax appear s normal. IMPRESSION: Normal chest. No change.
[2017-11-26 02:06] LABS: Creatine Kinase 54 U/L (30-135)
[2017-11-26 02:19] LABS: Creatine Kinase MB 0.2 ng/mL (0.0-2.4); Troponin I <0.012 ng/mL (0.000-0.034)
[2017-11-26 02:25] LABS: Appearance,Urine Cloudy (Clear); Bilirubin,Urine Negative (Negative); Blood,Urine Small (Negative); Color,Urine Yellow; Glucose,Urine (UA) Negative (Negative); Ketones,Urine 3+ (Negative); Leukocyte Esterase,Urine Negative (Negative); Mucus,Urine Few /hpf; Nitrite,Urine Negative (Negative); PH, Urine 5.5 (5.0-8.0); Protein,Urine Trace (Negative); RBC,Urine 3 /hpf (0-5); Squamous Epithelial Cell,Urine 3 /hpf (0-4); WBC,Urine 1 /hpf (0-5)
[2017-11-26] MEDS ORDERED: diphenhydrAMINE 50 MG/ML 1 ML VIAL IVP STA (03:03)
[2017-11-26] MEDS ORDERED: NITROGLYCERIN SL TABS 0.4 MG TAB SUBLINGUAL PRN (03:43)
[2017-11-26] MEDS ORDERED: SODIUM CHLORIDE 0.9% 1,000 ML IV ONE (03:43)
[2017-11-26] MEDS ORDERED: ASPIRIN 81 MG PO STA (03:43)
[2017-11-26 04:50] VITALS: BMI 26.0
[2017-11-26] MEDS ORDERED: MORPHINE SULFATE 2 MG/ML SYRINGE IVP STA (05:03)
[2017-11-26] MEDS ORDERED: LORazepam 2 MG/ML INJ IV STA (05:03)
[2017-11-26] MEDS ORDERED: LORazepam 1 MG TAB PO PRN (05:04)
[2017-11-26] MEDS ORDERED: ALBUTEROL NEBULIZED 2.5 MG/3 ML INHALATION PRN (05:04)
[2017-11-26] MEDS ORDERED: diphenhydrAMINE 25 MG CAP PO PRN (05:04)
[2017-11-26] MEDS ORDERED: ONDANSETRON 4 MG/2 ML VIAL IVP PRN (05:05)
[2017-11-26] MEDS ORDERED: ONDANSETRON 4 MG/2 ML VIAL ONE (05:09)
[2017-11-26 07:23] LABS: Creatine Kinase 48 U/L (30-135)
[2017-11-26 07:37] LABS: Creatine Kinase MB <0.2 ng/mL (0.0-2.4); Troponin I <0.012 ng/mL (0.000-0.034)
[2017-11-26] MEDS ORDERED: HYDROcodone/APAP 10-325MG 1 EACH TAB PO SCH (09:00)
[2017-11-26] MEDS ORDERED: NICOTINE 21MG/24HR PATCH TRANSDERM SCH (09:00)
--- NOTE | 2017-11-26 10:17 | P.CRDCN ---
History of Present Illness History of present illness: Mrs. Plunkett is a pleasant 42-year-old [place]acuasian female past medical history significant for CVA, fibromyalgia, anxiety, bipolar and chronic tobacco use. She denies history of coronary artery disease, hypertension, dyslipdemia or diabetes mellitus. We have been asked to see her in consultation for chest pain and shortness of breath. She presented to the hospital with symptoms of cough, nausea, vomiting, shortness of breath and pleuritic chest pain. She states she had been vomiting for the previous 24 hours with no specific aggravating factor. Her son at home is also sick with the same type of symptoms. She is coughing frequently and bringing up mucous like phlegm and complains of pain and tightness in the mid-sternal region when she coughs or takes a deep breath. She describes intermittent fever/chill symptoms as well over the last couple of days. She denies associated dizziness or palpitations. EKG reveals sinus mechanism with non-specific T-wave abnormalities. No acute ST changes. Chest x-ray is negative for an acute cardiopulmonary process. Laboratory data reviewed, hemoglobin 15.0, platelets 218, sodium 139, potassium 4.0, d-dimer 0.22, creatinine 0.6, cardiac enzymes negative 2. Home medications include Benadryl, Ativan, Plavix, albuterol and vitamin D supplementation. She takes Plavix since having a stroke. Most recent echocardiogram reveals preserved left ventricular systolic function with no evidence of valvular heart disease. Review of Systems At the time of my exam: CONSTITUTIONAL: Denies fever. Denies chills. EYES: Denies blurred vision. Denies vision changes. Denies eye pain. EARS, NOSE, MOUTH & THROAT: Denies headache. Denies sore throat. Denies ear pain. CARDIOVASCULAR: Denies chest pain. Denies shortness of breath. Denies orthopnea. Denies PND. Denies palpitations. RESPIRATORY: Complains of cough. GASTROINTESTINAL: Denies abdominal pain. Denies diarrhea. Denies constipation. Denies nausea. Denies vomiting. MUSCULOSKELETAL: Denies myalgias. INTEGUMENTARY: Denies pruitis. Denies rash. NEUROLOGIC: Denies numbness. Denies tingling. Denies weakness. PSYCHIATRIC: Denies anxiety. Denies depression. ENDOCRINE: Denies fatigue. Denies weight change. Denies polydipsia. Denies polyurina. GENITOURINARY: Denies burning, hematuria or urgency with micturation. HEMATOLOGIC: Denies history of anemia. Denies bleeding. Past Medical History Past Medical History: Asthma, CVA/TIA, Fibromyalgia, Memory Impairment, Pneumonia, Seizure Disorder Additional Past Medical History / Comment(s): "RT SIDED WEAKER THAN LT AND I AVE MEMORY PROBLEMS,COMPREHENSION PROBLEMS AT TIMES EPISODES SLURRED SPEECH. CHRONIC BACK/RT LEG PAIN AND RT LEG AT TIMES CAN GIVE OUT ON HER,PAIN, UTI, PEPTIC ULCER DISEASE WHEN YOUNGER, HYPOGLYCEMIA, DDD, MIGARINES, PSEUDOSEIZURES, KIDNEYSTONES. Bulging disc in neck History of Any Multi-Drug Resistant Organisms: None Reported Past Surgical History: Tubal Ligation Additional Past Surgical History / Comment(s): RT OVARIAN CYST REMOVED 1993 Past Anesthesia/Blood Transfusion Reactions: No Reported Reaction Additional Past Anesthesia/Blood Transfusion Reaction / Comment(s): CLAUSTERPHOBIA Smoking Status: Current every day smoker - Past Family History Sister(s) Family Medical History: Cancer Additional Family Medical History / Comment(s): Bone and breast CA Father Family Medical History: CVA/TIA, Hypertension Mother Family Medical History: AFIB, Hypertension, Seizure Disorder Additional Family Medical History / Comment(s): HEART PROBLEMS, DEPRESSION Medications and Allergies Home Medications Medication Instructions Recorded Confirmed Type Albuterol Sulfate [Ventolin HFA] 2 puff INHALATION RT-QID PRN 10/21/16 11/26/17 History Ergocalciferol [Vitamin D2 50,000 unit PO TH 10/21/16 11/26/17 History (DRISDOL)] Clopidogrel [Plavix] 75 mg PO HS 03/15/17 11/26/17 History LORazepam [Ativan] 1 mg PO DAILY PRN 07/21/17 11/26/17 History diphenhydrAMINE [Benadryl] 25 mg PO BID PRN #20 capsule 07/21/17 11/26/17 Rx Hydrocodone/Acetaminophen [[place] 1 tab PO TID 11/26/17 11/26/17 History 10-325] Allergies Allergy/AdvReac Type Severity Reaction Status Date / Time adhesive Allergy Unknown Verified 11/26/17 07:58 carbetapentane Allergy Unknown Verified 11/26/17 07:58 citalopram hydrobromide Allergy Rash/Hives Verified 11/26/17 07:58 [From Celexa] diethylene glycol Allergy Unknown Verified 11/26/17 07:58 dimethicone Allergy Unknown Verified 11/26/17 07:58 Imidazole Alkylating Agents Allergy Unknown Verified 11/26/17 07:58 miconazole [From Monistat 3] Allergy Unknown Verified 11/26/17 07:58 Penicillins Allergy Rash/Hives Verified 11/26/17 07:58 polyethylene glycol Allergy Unknown Verified 11/26/17 07:58 potassium Allergy Unknown Verified 11/26/17 07:58 propylene glycol Allergy Unknown Verified 11/26/17 07:58 skin cleanser combination Allergy Unknown Verified 11/26/17 07:58 no.17 [From Monistat 3] sorbitan sesquioleate Allergy Unknown Verified 11/26/17 07:58 [From Polysorb Hydrate] tioconazole Allergy Rash/Hives Verified 11/26/17 07:58 [From Monistat 1 (tioconazole)] Physical Exam Vitals: Vital Signs Temp Pulse Pulse Resp BP BP Pulse Ox 11/26/17 08:09 88 16 11/26/17 07:20 98.6 F 91 18 106/56 93 L 11/26/17 05:22 16 11/26/17 04:30 99.0 F 91 16 109/61 95 11/26/17 03:20 99 100 11/26/17 00:26 99.1 F 115 H 18 108/78 96 Intake and Output 11/25/17 11/26/17 11/26/17 22:59 06:59 14:59 Other: # Voids 1 Weight 68.9 kg Blood pressure 106/56 heart rate 91 afebrile maintaining oxygen saturation on room air GENERAL: This is a 42-year-old female in no apparent distress at the time of my examination. HEENT: Head is atraumatic, normocephalic. Pupils are equal, round. Sclerae anicteric. Conjunctivae are clear. Mucous membranes of the mouth are moist. Neck is supple. There is no jugular venous distention. No carotid bruit is heard. LUNGS: Clear to auscultation no wheezes, rales or rhonchi. No chest wall tenderness is noted on palpation or with deep breathing. HEART: Regular rate and rhythm without murmurs, rubs or gallops. S1 and S2 heard. ABDOMEN: Soft, nontender. Bowel sounds are heard. No organomegaly noted. EXTREMITIES: No evidence of peripheral edema and no calf tenderness noted. VASCULAR: Radial and dorsalis pedis pulses palpated, no evidence of clubbing. NEUROLOGIC: Patient is awake, alert and oriented x3. Results 11/26/17 01:25 11/26/17 01:25 Cardiac Enzymes 11/26/17 11/26/17 11/26/17 Range/Units 01:25 01:25 06:40 AST 17 (14-36) U/L CK-MB (CK-2) 0.2 <0.2 (0.0-2.4) ng/mL Troponin I <0.012 <0.012 (0.000-0.034) ng/mL CBC 11/26/17 Range/Units 01:25 WBC 10.1 (3.8-10.6) k/uL RBC 4.88 (3.80-5.40) m/uL Hgb 15.0 (11.4-16.0) gm/dL Hct 43.4 (34.0-46.0) % Plt Count 218 (150-450) k/uL Comprehensive Metabolic Panel 11/26/17 Range/Units 01:25 Sodium 139 (137-145) mmol/L Potassium 4.0 (3.5-5.1) mmol/L Chloride 105 (98-107) mmol/L Carbon Dioxide 25 (22-30) mmol/L BUN 7 (7-17) mg/dL Creatinine 0.60 (0.52-1.04) mg/dL Glucose 94 (74-99) mg/dL Calcium 8.9 (8.4-10.2) mg/dL AST 17 (14-36) U/L ALT 26 (9-52) U/L Alkaline Phosphatase 52 (38-126) U/L Total Protein 6.0 L (6.3-8.2) g/dL Albumin 3.8 (3.5-5.0) g/dL Current Medications Generic Name Dose Route Start Last Admin Trade Name Freq PRN Reason Stop Dose Admin Hydrocodone Bitart/Acetaminophen 1 each 11/26/17 09:00 [place] 10 PO TID MARLENY Albuterol Sulfate 2.5 mg 11/26/17 05:04 11/26/17 08:09 Ventolin Nebulized INHALATION 2.5 mg RT-QID PRN Administration Shortness Of Breath Aspirin 325 mg 11/27/17 09:00 Aspirin PO DAILY MARLENY Clopidogrel Bisulfate 75 mg 11/26/17 21:00 Plavix PO HS MARLENY Diphenhydramine HCl 25 mg 11/26/17 05:04 Benadryl PO BID PRN Headache Sodium Chloride 1,000 mls @ 100 mls/hr 11/26/17 03:43 11/26/17 04:14 Saline 0.9% IV 11/26/17 13:42 100 mls/hr .Q10H ONE Administration Nicotine 1 patch 11/26/17 09:00 Habitrol 21mg/24hr Patch TRANSDERM DAILY MARLENY Nitroglycerin 0.4 mg 11/26/17 03:43 Nitrostat SUBLINGUAL Q5M PRN Chest Pain Ondansetron HCl 4 mg 11/26/17 05:05 11/26/17 05:09 Zofran IVP 4 mg Q6HR PRN Administration Nausea And Vomiting Intake and Output 11/25/17 11/26/17 11/26/17 22:59 06:59 14:59 Other: # Voids 1 Weight 68.9 kg 11/26/17 01:25 11/26/17 01:25 Assessment and Plan Assessment: ASSESSMENT 1. Pleuritic chest pain, shortness of breath, nausea or vomiting. 2. History of CVA 3. Chronic tobacco abuse PLAN Obtain 2-D echocardiogram and Doppler study to assess cardiac structure and function. Check magnesium level. Continue to obtain serial cardiac enzymes to rule out an acute coronary event. If 3 sets of cardiac enzymes are normal she is stable from a cardiac perspective. Ongoing medical management of possible viral type illness. Follow-up with Dr. Mejia in 2-3 weeks for outpatient stress test. Nurse Practitioner note has been reviewed, I agree with a documented findings and plan of care. Patient was seen and examined.
--- NOTE | 2017-11-26 10:22 | ECHOF ---
Referral Reason:chest pain MEASUREMENTS -------- HEIGHT: 162.6 cm WEIGHT: 68.5 kg BP: 109/61 RVIDd: 3.3 cm (< 3.3) IVSd: 1.0 cm (0.6 - 1.1) LVIDd: 3.8 cm (3.9 - 5.3) LVPWd: 1.2 cm (0.6 - 1.1) IVSs: 1.6 cm LVIDs: 2.7 cm LVPWs: 1.6 cm LA Diam: 2.8 cm (2.7 - 3.8) LAESV Index (A-L): 20.62 ml/m Ao Diam: 3.2 cm (2.0 - 3.7) AV Cusp: 2.2 cm (1.5 - 2.6) EPSS: 0.5 cm MV E Ramiro: 1.11 m/s MV DecT: 139 ms MV A Ramiro: 0.75 m/s MV E/A Ratio: 1.48 MV EF SLOPE: 110.78 mm/s (70 - 150) MV EXCURSION: 1.36 cm (> 18.000) FINDINGS -------- Sinus rhythm. This was a technically good study. The left ventricular size is normal. There is borderline concentric left ventricular hypertrophy. Overall left ventricular systolic function is normal with, an EF between 60 - 65 %. The right ventricle is mildly enlarged. Normal LA size by volume 22+/-6 ml/m2. The right atrium is normal in size. The aortic valve is trileaflet and appears structurally normal. The mitral valve is normal. The tricuspid valve appears structurally normal. Trace/mild (physiologic) pulmonic regurgitation. The aortic root size is normal. Normal inferior vena cava with normal inspiratory collapse consistent with estimated right atrial pre ssure of 5 mmHg. There is no pericardial effusion. CONCLUSIONS -------- 1. Sinus rhythm. 2. This was a technically good study. 3. The left ventricular size is normal. 4. There is borderline concentric left ventricular hypertrophy. 5. Overall left ventricular systolic function is normal with, an EF between 60 - 65 %. 6. The right ventricle is mildly enlarged. 7. Normal LA size by volume 22+/-6 ml/m2. 8. The right atrium is normal in size. 9. The aortic valve is trileaflet and appears structurally normal. 10. The mitral valve is normal. 11. The tricuspid valve appears structurally normal. 12. Trace/mild (physiologic) pulmonic regurgitation. 13. The aortic root size is normal. 14. Normal inferior vena cava with normal inspiratory collapse consistent with estimated right atrial pressure of 5 mmHg. 15. There is no pericardial effusion. CONSTRUCTION COST ESTIMATOR: DANE Deleon
[2017-11-26 11:42] VITALS: BP 101/51; PULSE 102; RESP 18; TEMP 98.9
--- NOTE | 2017-11-26 12:45 | P.HPIM ---
History of Present Illness 42-year-old female was admitted from the emergency room with complaints of chest pain coughing shortness of breath. Patient has history of CVA. Patient recently has increasing amount of smoking. Patient is under family stress with knowledge of a new diagnosis of cancer in the family. Patient has on takeoff with nasal congestion troponins negative 2 awaiting the third set hopeful discharge Review of Systems Constitutional: Reports fatigue Ears, nose, mouth and throat: Reports nasal congestion Cardiovascular: Reports chest pain Respiratory: Reports cough, Reports dyspnea Past Medical History Past Medical History: Asthma, CVA/TIA, Fibromyalgia, Memory Impairment, Pneumonia, Seizure Disorder Additional Past Medical History / Comment(s): "RT SIDED WEAKER THAN LT AND I AVE MEMORY PROBLEMS,COMPREHENSION PROBLEMS AT TIMES EPISODES SLURRED SPEECH. CHRONIC BACK/RT LEG PAIN AND RT LEG AT TIMES CAN GIVE OUT ON HER,PAIN, UTI, PEPTIC ULCER DISEASE WHEN YOUNGER, HYPOGLYCEMIA, DDD, MIGARINES, PSEUDOSEIZURES, KIDNEYSTONES. Bulging disc in neck History of Any Multi-Drug Resistant Organisms: None Reported Past Surgical History: Tubal Ligation Additional Past Surgical History / Comment(s): RT OVARIAN CYST REMOVED 1993 Past Anesthesia/Blood Transfusion Reactions: No Reported Reaction Additional Past Anesthesia/Blood Transfusion Reaction / Comment(s): CLAUSTERPHOBIA Smoking Status: Current every day smoker - Past Family History Sister(s) Family Medical History: Cancer Additional Family Medical History / Comment(s): Bone and breast CA Father Family Medical History: CVA/TIA, Hypertension Mother Family Medical History: AFIB, Hypertension, Seizure Disorder Additional Family Medical History / Comment(s): HEART PROBLEMS, DEPRESSION Medications and Allergies Home Medications Medication Instructions Recorded Confirmed Type Albuterol Sulfate [Ventolin HFA] 2 puff INHALATION RT-QID PRN 10/21/16 11/26/17 History Ergocalciferol [Vitamin D2 50,000 unit PO TH 10/21/16 11/26/17 History (DRISDOL)] Clopidogrel [Plavix] 75 mg PO HS 03/15/17 11/26/17 History LORazepam [Ativan] 1 mg PO DAILY PRN 07/21/17 11/26/17 History diphenhydrAMINE [Benadryl] 25 mg PO BID PRN #20 capsule 07/21/17 11/26/17 Rx Hydrocodone/Acetaminophen [[place] 1 tab PO TID 11/26/17 11/26/17 History 10-325] Allergies Allergy/AdvReac Type Severity Reaction Status Date / Time adhesive Allergy Unknown Verified 11/26/17 07:58 carbetapentane Allergy Unknown Verified 11/26/17 07:58 citalopram hydrobromide Allergy Rash/Hives Verified 11/26/17 07:58 [From Celexa] diethylene glycol Allergy Unknown Verified 11/26/17 07:58 dimethicone Allergy Unknown Verified 11/26/17 07:58 Imidazole Alkylating Agents Allergy Unknown Verified 11/26/17 07:58 miconazole [From Monistat 3] Allergy Unknown Verified 11/26/17 07:58 Penicillins Allergy Rash/Hives Verified 11/26/17 07:58 polyethylene glycol Allergy Unknown Verified 11/26/17 07:58 potassium Allergy Unknown Verified 11/26/17 07:58 propylene glycol Allergy Unknown Verified 11/26/17 07:58 skin cleanser combination Allergy Unknown Verified 11/26/17 07:58 no.17 [From Monistat 3] sorbitan sesquioleate Allergy Unknown Verified 11/26/17 07:58 [From Polysorb Hydrate] tioconazole Allergy Rash/Hives Verified 11/26/17 07:58 [From Monistat 1 (tioconazole)] Physical Exam Vitals: Vital Signs Temp Pulse Pulse Resp BP BP Pulse Ox 11/26/17 11:40 98.9 F 102 H 18 101/51 94 L 11/26/17 08:09 88 16 11/26/17 08:00 16 11/26/17 07:20 98.6 F 91 18 106/56 93 L 11/26/17 05:22 16 11/26/17 04:30 99.0 F 91 16 109/61 95 11/26/17 03:20 99 100 11/26/17 00:26 99.1 F 115 H 18 108/78 96 Intake and Output 11/25/17 11/26/17 11/26/17 22:59 06:59 14:59 Intake Total 500 Balance 500 Intake: Oral 500 Other: Voiding Method Toilet # Voids 1 Weight 68.9 kg - Constitutional General appearance: mild distress - EENT Eyes: PERRLA Ears: bilateral: normal - Neck Neck: normal ROM - Respiratory Harsh cough Respiratory: bilateral: diminished - Cardiovascular Rhythm: regular - Gastrointestinal General gastrointestinal: soft - Integumentary Integumentary: normal - Neurologic Neurologic: CNII-XII intact - Musculoskeletal Musculoskeletal: gait normal - Psychiatric Psychiatric: A&O x's 3, appropriate affect, intact judgment & insight Results CBC & Chem 7: 11/26/17 01:25 11/26/17 01:25 Labs: Abnormal Lab Results - Last 24 Hours (Table) 11/26/17 11/26/17 11/26/17 Range/Units 01:25 01:25 02:15 Neutrophils # 8.9 H (1.3-7.7) k/uL Lymphocytes # 0.7 L (1.0-4.8) k/uL Total Protein 6.0 L (6.3-8.2) g/dL Urine Appearance Cloudy H (Clear) Urine Protein Trace H (Negative) Urine Ketones 3+ H (Negative) Urine Blood Small H (Negative) Urine Mucus Few H (None) /hpf Chest x-ray: report reviewed Thrombosis Risk Factor Assmnt - Choose All That Apply Each Factor Represents 1 point: Age 41-60 years Thrombosis Risk Factor Assessment Total Risk Factor Score: 1 Thrombosis Risk Factor Assessment Level: Low Risk Assessment and Plan Plan: Assessment Pleuritic chest pain with shortness of breath Acute sinusitis History of asthma History of seizure disorder Fibromyalgia with chronic back pain Chronic tobacco abuse History of CVA/TIA Plan Patient has had cardiology consultation troponins negative 2 awaiting third set We'll treat for acute sinusitis Hopeful discharge soon
[2017-11-26 14:23] LABS: Creatine Kinase 45 U/L (30-135)
[2017-11-26 14:37] LABS: Creatine Kinase MB <0.2 ng/mL (0.0-2.4); Troponin I <0.012 ng/mL (0.000-0.034)
--- NOTE | 2017-11-26 15:34 | P.DS ---
Providers Date of admission: 11/26/17 03:43 Expected date of discharge: 11/26/17 Attending physician: Balwinder Lozano Consults: 11/26/17 03:43 Consult Physician Stat Consulting Provider: [facility] Consult Reason/Comments: chest pain Do you want consulting provider notified?: Yes Primary care physician: Balwinder Lozano Pertinent Studies: 42 year old female was admitted thru ER with respiratory complaints and chest pain. Patient was cleared by cardiology after negative troponins assessment Pleuritic chest pain troponin negative X3 Hx CVA/SHANIKA chronic tobacco use hx asthma seizure disorder fibromyalgia sinusitis Plan follow up with family physician will be started on biaxin medrol and refill venotolin Patient Condition at Discharge: Good Plan - Discharge Summary New Discharge Prescriptions: Continue Ergocalciferol [Vitamin D2 (DRISDOL)] 50,000 unit PO TH Albuterol Sulfate [Ventolin HFA] 2 puff INHALATION RT-QID PRN PRN Reason: Shortness Of Breath Clopidogrel [Plavix] 75 mg PO HS LORazepam [Ativan] 1 mg PO DAILY PRN PRN Reason: Anxiety diphenhydrAMINE [Benadryl] 25 mg PO BID PRN #20 capsule PRN Reason: Headache Hydrocodone/Acetaminophen [[place] 10-325] 1 tab PO TID Discharge Medication List Albuterol Sulfate [Ventolin HFA] 2 puff INHALATION RT-QID PRN 10/21/16 [History] Ergocalciferol [Vitamin D2 (DRISDOL)] 50,000 unit PO TH 10/21/16 [History] Clopidogrel [Plavix] 75 mg PO HS 03/15/17 [History] LORazepam [Ativan] 1 mg PO DAILY PRN 07/21/17 [History] diphenhydrAMINE [Benadryl] 25 mg PO BID PRN #20 capsule 07/21/17 [Rx] Hydrocodone/Acetaminophen [[place] 10-325] 1 tab PO TID 11/26/17 [History] Follow up Appointment(s)/Referral(s): Balwinder Lozano MD [Primary Care Provider] - 1-2 days Amanda Mejia MD [STAFF PHYSICIAN] - 12/23/17 2:15 pm Patient Instructions/Handouts: Chest Pain (DC) Discharge Disposition: HOME SELF-CARE
[2017-11-26] MEDS ORDERED: CLOPIDOGREL 75 MG TAB PO SCH (21:00)
[2017-11-27] MEDS ORDERED: ASPIRIN 325 MG TAB PO SCH (09:00)
[2017-11-27] MEDS ORDERED: ASPIRIN 81 MG PO SCH (09:00)
== END 2017-11-26 15:23 | disposition home or self-care (01) ==
LOC: EC 00:24 → 3OBS 03:43
PROVIDERS: ADMIT Family Medicine; ATTEND Family Medicine
DX: R07.81 Pleurodynia (principal); J01.90 Acute sinusitis, unspecified; F17.200 Nicotine dependence, unspecified, uncomplicated; R11.2 Nausea with vomiting, unspecified; J45.909 Unspecified asthma, uncomplicated; G40.909 Epilepsy, unspecified, not intractable, without status epilepticus; M79.7 Fibromyalgia; G89.29 Other chronic pain; M54.9 Dorsalgia, unspecified; F31.9 Bipolar disorder, unspecified; F41.9 Anxiety disorder, unspecified; R41.3 Other amnesia; Z79.02 Long term (current) use of antithrombotics/antiplatelets; Z79.899 Other long term (current) drug therapy; Z88.3 Allergy status to other anti-infective agents; Z88.0 Allergy status to penicillin; Z88.8 Allergy status to other drugs, medicaments and biological substances; Z91.018 Allergy to other foods; Z91.048 Other nonmedicinal substance allergy status; Z91.02 Food additives allergy status; Z86.73 Personal history of transient ischemic attack (TIA), and cerebral infarction without residual deficits; Z87.11 Personal history of peptic ulcer disease; Z87.440 Personal history of urinary (tract) infections; Z87.01 Personal history of pneumonia (recurrent); Z82.0 Family history of epilepsy and other diseases of the nervous system; Z81.8 Family history of other mental and behavioral disorders; Z80.9 Family history of malignant neoplasm, unspecified; Z82.49 Family history of ischemic heart disease and other diseases of the circulatory system; Z82.3 Family history of stroke; Z80.3 Family history of malignant neoplasm of breast; Z80.8 Family history of malignant neoplasm of other organs or systems
CPT/HCPCS: 99284 ×2; 96374 ×2; 96375 ×3; 96361 ×4; 96376; 36415; 94640; 93005; 93306; 85379; 80053; 82150; 82550; 82553; 83690; 83735; 84484; 85025; 81001; 81025; 71046; G0378; J2060; J1200; J2405; J2270

== ENCOUNTER 2018-02-25 20:57 | Emergency (ER) | payer MEDICARE, OTHER ==
[2018-02-25] MEDS ORDERED: SODIUM CHLORIDE 0.9% 1,000 ML IV STA ×2 (21:04)
[2018-02-25] MEDS ORDERED: ONDANSETRON 4 MG/2 ML VIAL IVP STA (21:04)
[2018-02-25 21:39] LABS: Basophils % (A) 0 %; Eosinophils # (A) 0.2 k/uL (0-0.7); Eosinophils % (A) 2 %; HCT 43.9 % (34.0-46.0); HGB 14.2 gm/dL (11.4-16.0); Lymphocytes # (A) 2.8 k/uL (1.0-4.8); Lymphocytes % (A) 27 %; MCH 29.5 pg (25.0-35.0); MCHC 32.4 g/dL (31.0-37.0); MCV 91.2 fL (80.0-100.0); Mean Platelet Volume 7.6; Monocytes # (A) 0.4 k/uL (0-1.0); Monocytes % (A) 4 %; Neutrophils # (A) 6.7 k/uL (1.3-7.7); Neutrophils % (A) 66 %; Platelet Count 248 k/uL (150-450); RBC 4.81 m/uL (3.80-5.40); RDW 12.8 % (11.5-15.5); WBC 10.2 k/uL (3.8-10.6)
[2018-02-25 21:54] LABS: ALT 16 U/L (9-52); AST 13 U/L (14-36); Albumin 4.2 g/dL (3.5-5.0); Alkaline Phosphatase 48 U/L (38-126); Anion Gap 10 mmol/L; Blood Urea Nitrogen 9 mg/dL (7-17); Calcium 9.2 mg/dL (8.4-10.2); Carbon Dioxide 21 mmol/L (22-30); Chloride 108 mmol/L (98-107); Glucose 82 mg/dL (74-99); Lipase 81 U/L (23-300); Magnesium 1.9 mg/dL (1.6-2.3); Sodium 139 mmol/L (137-145); Total Bilirubin 0.3 mg/dL (0.2-1.3); Total Protein 6.7 g/dL (6.3-8.2)
[2018-02-25 21:56] LABS: Creatine Kinase 62 U/L (30-135); D-Dimer 0.39 mg/L FEU (<0.60); Prothrombin Time 9.8 sec (9.0-12.0)
--- NOTE | 2018-02-25 21:57 | XR ---
EXAMINATION TYPE: XR chest 2V DATE OF EXAM: 02/25/2018 COMPARISON: 11/18/2017 HISTORY: Chest pain TECHNIQUE: Frontal and lateral views of the chest are obtained. FINDINGS: Heart and mediastinum are normal. Lungs are clear. Diaphragm is normal. Bony thorax appear s normal. IMPRESSION: Normal chest. No change.
[2018-02-25 22:09] LABS: Creatine Kinase MB 0.6 ng/mL (0.0-2.4); Troponin I <0.012 ng/mL (0.000-0.034)
--- NOTE | 2018-02-25 22:14 | ED ---
General Adult HPI - General Chief complaint: Chest Pain Stated complaint: Chest pain Time Seen by Provider: 02/25/18 21:04 Source: patient, RN notes reviewed, old records reviewed Mode of arrival: wheelchair Limitations: no limitations - History of Present Illness Initial comments: This is a patient whose 4 L nasal presented with chest pain. Patient as well as this emergency room. Patient has history of CVA TIA and other medical issues. Patient is recent travel history or sick contacts denies fever cough or congestion. Patient does admit to positive chest pain or chest pain that is resolving. No travel history no known sick contacts. Patient has no modifying factors for pain. Patient has been 3 days associated with nausea and dizziness - Related Data Home Medications Medication Instructions Recorded Confirmed Albuterol Sulfate [Ventolin HFA] 2 puff INHALATION RT-QID PRN 10/21/16 02/25/18 LORazepam [Ativan] 1 mg PO DAILY PRN 07/21/17 02/25/18 Hydrocodone/Acetaminophen [[place] 1 tab PO TID 11/26/17 02/25/18 10-325] Allergies Allergy/AdvReac Type Severity Reaction Status Date / Time adhesive Allergy Unknown Verified 02/25/18 21:25 carbetapentane Allergy Unknown Verified 02/25/18 21:25 citalopram hydrobromide Allergy Rash/Hives Verified 02/25/18 21:25 [From Celexa] diethylene glycol Allergy Unknown Verified 02/25/18 21:25 dimethicone Allergy Unknown Verified 02/25/18 21:25 Imidazole Alkylating Agents Allergy Unknown Verified 02/25/18 21:25 miconazole [From Monistat 3] Allergy Unknown Verified 02/25/18 21:25 Penicillins Allergy Rash/Hives Verified 02/25/18 21:25 polyethylene glycol Allergy Unknown Verified 02/25/18 21:25 potassium Allergy Unknown Verified 02/25/18 21:25 propylene glycol Allergy Unknown Verified 02/25/18 21:25 skin cleanser combination Allergy Unknown Verified 02/25/18 21:25 no.17 [From Monistat 3] sorbitan sesquioleate Allergy Unknown Verified 02/25/18 21:25 [From Polysorb Hydrate] tioconazole Allergy Rash/Hives Verified 02/25/18 21:25 [From Monistat 1 (tioconazole)] Review of Systems ROS Statement: Those systems with pertinent positive or pertinent negative responses have been documented in the HPI. ROS Other: All systems not noted in ROS Statement are negative. Past Medical History Past Medical History: Asthma, CVA/TIA, Fibromyalgia, Memory Impairment, Pneumonia, Seizure Disorder Additional Past Medical History / Comment(s): "RT SIDED WEAKER THAN LT AND I AVE MEMORY PROBLEMS,COMPREHENSION PROBLEMS AT TIMES EPISODES SLURRED SPEECH. CHRONIC BACK/RT LEG PAIN AND RT LEG AT TIMES CAN GIVE OUT ON HER,PAIN, UTI, PEPTIC ULCER DISEASE WHEN YOUNGER, HYPOGLYCEMIA, DDD, MIGARINES, PSEUDOSEIZURES, KIDNEYSTONES. Bulging disc in neck History of Any Multi-Drug Resistant Organisms: None Reported Past Surgical History: Tubal Ligation Additional Past Surgical History / Comment(s): RT OVARIAN CYST REMOVED 1993 Past Anesthesia/Blood Transfusion Reactions: No Reported Reaction Additional Past Anesthesia/Blood Transfusion Reaction / Comment(s): CLAUSTERPHOBIA Past Psychological History: Anxiety, Bipolar, Depression Smoking Status: Current every day smoker Past Alcohol Use History: None Reported Past Drug Use History: None Reported - Past Family History Sister(s) Family Medical History: Cancer Additional Family Medical History / Comment(s): Bone and breast CA Father Family Medical History: CVA/TIA, Hypertension Mother Family Medical History: AFIB, Hypertension, Seizure Disorder Additional Family Medical History / Comment(s): HEART PROBLEMS, DEPRESSION General Exam Limitations: no limitations General appearance: alert, in no apparent distress Head exam: Present: atraumatic, normocephalic, normal inspection Eye exam: Present: normal appearance, PERRL, EOMI. Absent: scleral icterus, conjunctival injection, periorbital swelling ENT exam: Present: normal exam, mucous membranes moist Neck exam: Present: normal inspection. Absent: tenderness, meningismus, lymphadenopathy Respiratory exam: Present: normal lung sounds bilaterally. Absent: respiratory distress, wheezes, rales, rhonchi, stridor Cardiovascular Exam: Present: regular rate, normal rhythm, normal heart sounds. Absent: systolic murmur, diastolic murmur, rubs, gallop, clicks GI/Abdominal exam: Present: soft, normal bowel sounds. Absent: distended, tenderness, guarding, rebound, rigid Extremities exam: Present: normal inspection, full ROM, normal capillary refill. Absent: tenderness, pedal edema, joint swelling, calf tenderness Back exam: Present: normal inspection Neurological exam: Present: alert, oriented X3, CN II-XII intact Psychiatric exam: Present: normal affect, normal mood Skin exam: Present: warm, dry, intact, normal color. Absent: rash Course Vital Signs 02/25/18 02/25/18 02/25/18 20:58 21:20 22:52 Temperature 98.2 F 98.0 F Pulse Rate 92 81 Pulse Rate [ 85 Casing Trimmer ] Respiratory 18 20 19 Rate Blood Pressure 125/80 151/63 O2 Sat by Pulse 100 100 Oximetry EKG Findings - EKG Comments: EKG Findings:: EKG shows normal sinus rhythm rate of 90, NC 122, QRS 76, QTc 440 Medical Decision Making - Medical Decision Making 5-year-old female the ER with chest pain. Chest pain is atypical and patient well-known to this emergency room. Patient will be discharged home - Lab Data Result diagrams: 02/25/18 21:24 02/25/18 21:24 Lab Results 02/25/18 02/25/18 02/25/18 Range/Units 21:24 21:24 21:24 WBC 10.2 (3.8-10.6) k/uL RBC 4.81 (3.80-5.40) m/uL Hgb 14.2 (11.4-16.0) gm/dL Hct 43.9 (34.0-46.0) % MCV 91.2 (80.0-100.0) fL MCH 29.5 (25.0-35.0) pg MCHC 32.4 (31.0-37.0) g/dL RDW 12.8 (11.5-15.5) % Plt Count 248 (150-450) k/uL Neutrophils % 66 % Lymphocytes % 27 % Monocytes % 4 % Eosinophils % 2 % Basophils % 0 % Neutrophils # 6.7 (1.3-7.7) k/uL Lymphocytes # 2.8 (1.0-4.8) k/uL Monocytes # 0.4 (0-1.0) k/uL Eosinophils # 0.2 (0-0.7) k/uL Basophils # 0.0 (0-0.2) k/uL PT (9.0-12.0) sec INR (<1.2) APTT (22.0-30.0) sec D-Dimer (<0.60) mg/L FEU Sodium 139 (137-145) mmol/L Potassium 4.0 (3.5-5.1) mmol/L Chloride 108 H (98-107) mmol/L Carbon Dioxide 21 L (22-30) mmol/L Anion Gap 10 mmol/L BUN 9 (7-17) mg/dL Creatinine 0.57 (0.52-1.04) mg/dL Est GFR (CKD-EPI)AfAm >90 (>60 ml/min/1.73 sqM) Est GFR (CKD-EPI)NonAf >90 (>60 ml/min/1.73 sqM) Glucose 82 (74-99) mg/dL Calcium 9.2 (8.4-10.2) mg/dL Magnesium 1.9 (1.6-2.3) mg/dL Total Bilirubin 0.3 (0.2-1.3) mg/dL AST 13 L (14-36) U/L ALT 16 (9-52) U/L Alkaline Phosphatase 48 (38-126) U/L Total Creatine Kinase 62 (30-135) U/L CK-MB (CK-2) 0.6 (0.0-2.4) ng/mL CK-MB (CK-2) Rel Index 1.0 Troponin I <0.012 (0.000-0.034) ng/mL NT-Pro-B Natriuret Pep pg/mL Total Protein 6.7 (6.3-8.2) g/dL Albumin 4.2 (3.5-5.0) g/dL Lipase 81 (23-300) U/L 02/25/18 02/25/18 Range/Units 21:24 21:24 WBC (3.8-10.6) k/uL RBC (3.80-5.40) m/uL Hgb (11.4-16.0) gm/dL Hct (34.0-46.0) % MCV (80.0-100.0) fL MCH (25.0-35.0) pg MCHC (31.0-37.0) g/dL RDW (11.5-15.5) % Plt Count (150-450) k/uL Neutrophils % % Lymphocytes % % Monocytes % % Eosinophils % % Basophils % % Neutrophils # (1.3-7.7) k/uL Lymphocytes # (1.0-4.8) k/uL Monocytes # (0-1.0) k/uL Eosinophils # (0-0.7) k/uL Basophils # (0-0.2) k/uL PT 9.8 (9.0-12.0) sec INR 1.0 (<1.2) APTT 25.0 (22.0-30.0) sec D-Dimer 0.39 (<0.60) mg/L FEU Sodium (137-145) mmol/L Potassium (3.5-5.1) mmol/L Chloride (98-107) mmol/L Carbon Dioxide (22-30) mmol/L Anion Gap mmol/L BUN (7-17) mg/dL Creatinine (0.52-1.04) mg/dL Est GFR (CKD-EPI)AfAm (>60 ml/min/1.73 sqM) Est GFR (CKD-EPI)NonAf (>60 ml/min/1.73 sqM) Glucose (74-99) mg/dL Calcium (8.4-10.2) mg/dL Magnesium (1.6-2.3) mg/dL Total Bilirubin (0.2-1.3) mg/dL AST (14-36) U/L ALT (9-52) U/L Alkaline Phosphatase (38-126) U/L Total Creatine Kinase (30-135) U/L CK-MB (CK-2) (0.0-2.4) ng/mL CK-MB (CK-2) Rel Index Troponin I (0.000-0.034) ng/mL NT-Pro-B Natriuret Pep 54 pg/mL Total Protein (6.3-8.2) g/dL Albumin (3.5-5.0) g/dL Lipase (23-300) U/L - Radiology Data Radiology results: report reviewed (Chest x-rays negative for acute disease), image reviewed Disposition Clinical Impression: Chest pain, Atypical chest pain Disposition: HOME SELF-CARE Condition: Good Instructions: Chest Pain (ED) Is patient prescribed a controlled substance at d/c from ED?: No Referrals: Balwinder Lozano MD [Primary Care Provider] - 1-2 days
[2018-02-25 22:53] VITALS: BP 151/63; RESP 19; TEMP 98
[2018-02-25 22:57] VITALS: PULSE 85
== END 2018-02-25 22:52 | disposition home or self-care (01) ==
LOC: EC 20:57
DX: R07.89 Other chest pain (principal); J45.909 Unspecified asthma, uncomplicated; M79.7 Fibromyalgia; F17.200 Nicotine dependence, unspecified, uncomplicated; Z86.73 Personal history of transient ischemic attack (TIA), and cerebral infarction without residual deficits; Z79.891 Long term (current) use of opiate analgesic; Z88.0 Allergy status to penicillin; Z88.8 Allergy status to other drugs, medicaments and biological substances; Z91.048 Other nonmedicinal substance allergy status; Z88.1 Allergy status to other antibiotic agents; Z53.9 Procedure and treatment not carried out, unspecified reason
CPT/HCPCS: 36415; 85379; 83880; 80053; 82550; 82553; 83690; 83735; 84484; 85025; 85610; 85730; 71046; 99285; 96374; 96361; J2405

== ENCOUNTER 2018-08-04 18:44 | Emergency (ER) | payer MEDICARE, OTHER ==
[2018-08-04] MEDS ORDERED: IPRATROPIUM 0.5 MG/2.5 ML NEBU INHALATION STA (19:04)
[2018-08-04] MEDS ORDERED: methylPREDNISolone SOD SUCCI 125 MG/2 ML VIAL IV STA (19:04)
[2018-08-04] MEDS ORDERED: SODIUM CHLORIDE 0.9% 1,000 ML IV STA ×2 (19:04→19:07)
[2018-08-04] MEDS ORDERED: SODIUM CHLORIDE 0.9% 500 ML 500 ML IV STA (19:04)
[2018-08-04] MEDS ORDERED: ALBUTEROL NEBULIZED 2.5 MG/3 ML INHALATION STA (19:04)
--- NOTE | 2018-08-04 19:05 | ED ---
URI HPI - General Chief Complaint: Upper Respiratory Infection Stated Complaint: MARINA Source: patient, RN notes reviewed, old records reviewed Mode of arrival: ambulatory Limitations: no limitations - History of Present Illness Initial Comments: This is a 42-year-old female the ER for evaluation of episodic fevers cough congestion shortness of breath. History of bronchitis history of smoking. No current chest pain. Patient was sent to ER by primary care for evaluation regarding possible PE. MD Complaint: fever, cough, nasal congestion -: days(s) Severity: moderate Severity scale (1-10): 5 Consistency: constant Improves With: nothing Worsens With: nothing Associated Symptoms: fever, cough Treatments Prior to Arrival: none - Related Data Home Medications Medication Instructions Recorded Confirmed Albuterol Sulfate [Ventolin HFA] 2 puff INHALATION RT-QID PRN 10/21/16 08/04/18 LORazepam [Ativan] 1 mg PO DAILY PRN 07/21/17 08/04/18 Hydrocodone/Acetaminophen [[place] 1 tab PO TID 11/26/17 08/04/18 10-325] Aspirin EC [Ecotrin Low Dose] 81 mg PO DAILY 08/04/18 08/04/18 Clopidogrel [Plavix] 75 mg PO DAILY 08/04/18 08/04/18 OXcarbazepine [Trileptal] 150 mg PO BID 08/04/18 08/04/18 cloNIDine HCL [Catapres] 0.1 mg PO HS 08/04/18 08/04/18 methylPREDNISolone Dose Pack See Taper PO DIRECTED 08/04/18 08/04/18 [Medrol Dose Pack] Allergies Allergy/AdvReac Type Severity Reaction Status Date / Time adhesive Allergy Unknown Verified 08/04/18 19:20 carbetapentane Allergy Unknown Verified 08/04/18 19:20 citalopram hydrobromide Allergy Rash/Hives Verified 08/04/18 19:20 [From Celexa] diethylene glycol Allergy Unknown Verified 08/04/18 19:20 dimethicone Allergy Unknown Verified 08/04/18 19:20 Imidazole Alkylating Agents Allergy Unknown Verified 08/04/18 19:20 miconazole [From Monistat 3] Allergy Unknown Verified 08/04/18 19:20 Penicillins Allergy Rash/Hives Verified 08/04/18 19:20 polyethylene glycol Allergy Unknown Verified 03/06/19 19:20 potassium Allergy Unknown Verified 08/04/18 19:20 propylene glycol Allergy Unknown Verified 08/04/18 19:20 skin cleanser combination Allergy Unknown Verified 08/04/18 19:20 no.17 [From Monistat 3] sorbitan sesquioleate Allergy Unknown Verified 08/04/18 19:20 [From Polysorb Hydrate] tioconazole Allergy Rash/Hives Verified 08/04/18 19:20 [From Monistat 1 (tioconazole)] Review of Systems ROS Statement: Those systems with pertinent positive or pertinent negative responses have been documented in the HPI. ROS Other: All systems not noted in ROS Statement are negative. Past Medical History Past Medical History: Asthma, CVA/TIA, Fibromyalgia, Memory Impairment, Pneumonia, Seizure Disorder Additional Past Medical History / Comment(s): "RT SIDED WEAKER THAN LT AND I AVE MEMORY PROBLEMS,COMPREHENSION PROBLEMS AT TIMES EPISODES SLURRED SPEECH. CHRONIC BACK/RT LEG PAIN AND RT LEG AT TIMES CAN GIVE OUT ON HER,PAIN, UTI, PEPTIC ULCER DISEASE WHEN YOUNGER, HYPOGLYCEMIA, DDD, MIGARINES, PSEUDOSEIZURES, KIDNEYSTONES. Bulging disc in neck History of Any Multi-Drug Resistant Organisms: None Reported Past Surgical History: Tubal Ligation Additional Past Surgical History / Comment(s): RT OVARIAN CYST REMOVED 1993 Past Anesthesia/Blood Transfusion Reactions: No Reported Reaction Additional Past Anesthesia/Blood Transfusion Reaction / Comment(s): CLAUSTERPHOBIA Past Psychological History: Anxiety, Bipolar, Depression Smoking Status: Current every day smoker Past Alcohol Use History: None Reported Past Drug Use History: None Reported - Past Family History Sister(s) Family Medical History: Cancer Additional Family Medical History / Comment(s): Bone and breast CA Father Family Medical History: CVA/TIA, Hypertension Mother Family Medical History: AFIB, Hypertension, Seizure Disorder Additional Family Medical History / Comment(s): HEART PROBLEMS, DEPRESSION General Exam Limitations: no limitations General appearance: alert, in no apparent distress, anxious Head exam: Present: atraumatic, normocephalic, normal inspection Eye exam: Present: normal appearance, PERRL, EOMI. Absent: scleral icterus, conjunctival injection, periorbital swelling ENT exam: Present: normal exam, mucous membranes moist Neck exam: Present: normal inspection. Absent: tenderness, meningismus, lymphadenopathy Respiratory exam: Present: wheezes, accessory muscle use, decreased breath sounds, prolonged expiratory. Absent: respiratory distress, rales, rhonchi, stridor Cardiovascular Exam: Present: normal rhythm, tachycardia, normal heart sounds. Absent: systolic murmur, diastolic murmur, rubs, gallop, clicks GI/Abdominal exam: Present: soft, normal bowel sounds. Absent: distended, tenderness, guarding, rebound, rigid Extremities exam: Present: normal inspection, full ROM, normal capillary refill. Absent: tenderness, pedal edema, joint swelling, calf tenderness Back exam: Present: normal inspection Neurological exam: Present: alert, oriented X3, CN II-XII intact Psychiatric exam: Present: normal affect, normal mood Skin exam: Present: warm, dry, intact, normal color. Absent: rash Course Vital Signs 08/04/18 08/04/18 08/04/18 18:54 19:21 19:31 Temperature 99.9 F H 100.8 F H Pulse Rate 119 H 110 H 113 H Respiratory 20 20 Rate Blood Pressure 124/75 119/76 O2 Sat by Pulse 96 97 Oximetry 08/04/18 08/04/18 08/04/18 19:46 20:10 20:15 Temperature Pulse Rate 111 H 105 H 106 H Respiratory 23 Rate Blood Pressure 118/67 O2 Sat by Pulse 98 Oximetry 08/04/18 08/04/18 08/04/18 21:05 22:18 22:35 Temperature 100.4 F H 99.0 F Pulse Rate 115 H 100 102 H Respiratory 20 20 Rate Blood Pressure 126/89 108/64 O2 Sat by Pulse 96 98 Oximetry 08/04/18 22:48 Temperature Pulse Rate 102 H Respiratory Rate Blood Pressure O2 Sat by Pulse Oximetry - Reevaluation(s) Reevaluation #1: 08/04/18 22:52 Medical record is reviewed Reevaluation #2: 08/04/18 22:52 Patient symptoms are much improved, she would like discharge home Medical Decision Making - Medical Decision Making 42 female the ER for evaluation of shortness of breath, acute on chronic bronchitis secondary to smoking. CTA chest is negative for PE. - Lab Data Result diagrams: 08/04/18 19:54 08/04/18 19:54 Lab Results 08/04/18 08/04/18 08/04/18 Range/Units 19:54 19:54 19:54 WBC 8.0 (3.8-10.6) k/uL RBC 4.71 (3.80-5.40) m/uL Hgb 14.4 (11.4-16.0) gm/dL Hct 42.3 (34.0-46.0) % MCV 90.0 (80.0-100.0) fL MCH 30.6 (25.0-35.0) pg MCHC 34.1 (31.0-37.0) g/dL RDW 13.1 (11.5-15.5) % Plt Count 207 (150-450) k/uL Neutrophils % 85 % Lymphocytes % 7 % Monocytes % 6 % Eosinophils % 1 % Basophils % 0 % Neutrophils # 6.8 (1.3-7.7) k/uL Lymphocytes # 0.6 L (1.0-4.8) k/uL Monocytes # 0.4 (0-1.0) k/uL Eosinophils # 0.1 (0-0.7) k/uL Basophils # 0.0 (0-0.2) k/uL PT (9.0-12.0) sec INR (<1.2) APTT (22.0-30.0) sec D-Dimer (<0.60) mg/L FEU Sodium 139 (137-145) mmol/L Potassium 4.1 (3.5-5.1) mmol/L Chloride 108 H (98-107) mmol/L Carbon Dioxide 22 (22-30) mmol/L Anion Gap 9 mmol/L BUN 8 (7-17) mg/dL Creatinine 0.52 (0.52-1.04) mg/dL Est GFR (CKD-EPI)AfAm >90 (>60 ml/min/1.73 sqM) Est GFR (CKD-EPI)NonAf >90 (>60 ml/min/1.73 sqM) Glucose 93 (74-99) mg/dL Plasma Lactic Acid Dio (0.7-2.0) mmol/L Calcium 9.4 (8.4-10.2) mg/dL Magnesium 1.9 (1.6-2.3) mg/dL Total Bilirubin 0.3 (0.2-1.3) mg/dL AST 19 (14-36) U/L ALT 34 (9-52) U/L Alkaline Phosphatase 54 (38-126) U/L Troponin I (0.000-0.034) ng/mL NT-Pro-B Natriuret Pep 149 pg/mL Total Protein 6.7 (6.3-8.2) g/dL Albumin 4.2 (3.5-5.0) g/dL 08/04/18 08/04/18 08/04/18 Range/Units 19:54 19:54 19:54 WBC (3.8-10.6) k/uL RBC (3.80-5.40) m/uL Hgb (11.4-16.0) gm/dL Hct (34.0-46.0) % MCV (80.0-100.0) fL MCH (25.0-35.0) pg MCHC (31.0-37.0) g/dL RDW (11.5-15.5) % Plt Count (150-450) k/uL Neutrophils % % Lymphocytes % % Monocytes % % Eosinophils % % Basophils % % Neutrophils # (1.3-7.7) k/uL Lymphocytes # (1.0-4.8) k/uL Monocytes # (0-1.0) k/uL Eosinophils # (0-0.7) k/uL Basophils # (0-0.2) k/uL PT 9.6 (9.0-12.0) sec INR 0.9 (<1.2) APTT 25.6 (22.0-30.0) sec D-Dimer 0.24 (<0.60) mg/L FEU Sodium (137-145) mmol/L Potassium (3.5-5.1) mmol/L Chloride (98-107) mmol/L Carbon Dioxide (22-30) mmol/L Anion Gap mmol/L BUN (7-17) mg/dL Creatinine (0.52-1.04) mg/dL Est GFR (CKD-EPI)AfAm (>60 ml/min/1.73 sqM) Est GFR (CKD-EPI)NonAf (>60 ml/min/1.73 sqM) Glucose (74-99) mg/dL Plasma Lactic Acid Dio 1.4 (0.7-2.0) mmol/L Calcium (8.4-10.2) mg/dL Magnesium (1.6-2.3) mg/dL Total Bilirubin (0.2-1.3) mg/dL AST (14-36) U/L ALT (9-52) U/L Alkaline Phosphatase (38-126) U/L Troponin I <0.012 (0.000-0.034) ng/mL NT-Pro-B Natriuret Pep pg/mL Total Protein (6.3-8.2) g/dL Albumin (3.5-5.0) g/dL - EKG Data -: EKG Interpreted by Me (EKG shows sinus rhythm rate of 94, IN 160, QRS 80, QTC 420) - Radiology Data Radiology results: report reviewed (CTA chest is negative for PE), image reviewed Disposition Clinical Impression: Upper respiratory infection, Asthmatic bronchitis Disposition: HOME SELF-CARE Condition: Good Instructions (If sedation given, give patient instructions): Acute Bronchitis ( ED) Is patient prescribed a controlled substance at d/c from ED?: No Referrals: Owen De MD [Primary Care Provider] - 1-2 days
--- NOTE | 2018-08-04 19:39 | XR ---
EXAMINATION TYPE: XR chest 1V portable DATE OF EXAM: 08/04/2018 COMPARISON: 02/25/2018 HISTORY: Short of breath TECHNIQUE: Single frontal view of the chest is obtained. FINDINGS: There is no heart failure nor confluent pneumonic infiltrate. Costophrenic angles are yan r. There is no evidence of pleural effusion. Bony thorax is intact. IMPRESSION: No active cardiopulmonary disease. Normal heart. No change.
[2018-08-04] MEDS ORDERED: MORPHINE SULFATE 4 MG/ML SYRINGE IVP STA (20:13)
[2018-08-04 20:17] LABS: Basophils % (A) 0 %; Eosinophils # (A) 0.1 k/uL (0-0.7); Eosinophils % (A) 1 %; HCT 42.3 % (34.0-46.0); HGB 14.4 gm/dL (11.4-16.0); Lymphocytes # (A) 0.6 k/uL (1.0-4.8); Lymphocytes % (A) 7 %; MCH 30.6 pg (25.0-35.0); MCHC 34.1 g/dL (31.0-37.0); Mean Platelet Volume 7.6; Monocytes # (A) 0.4 k/uL (0-1.0); Monocytes % (A) 6 %; Neutrophils # (A) 6.8 k/uL (1.3-7.7); Neutrophils % (A) 85 %; Platelet Count 207 k/uL (150-450); RBC 4.71 m/uL (3.80-5.40); RDW 13.1 % (11.5-15.5)
[2018-08-04 20:28] LABS: ALT 34 U/L (9-52); AST 19 U/L (14-36); Albumin 4.2 g/dL (3.5-5.0); Alkaline Phosphatase 54 U/L (38-126); Anion Gap 9 mmol/L; Blood Urea Nitrogen 8 mg/dL (7-17); Calcium 9.4 mg/dL (8.4-10.2); Carbon Dioxide 22 mmol/L (22-30); Chloride 108 mmol/L (98-107); Glucose 93 mg/dL (74-99); Magnesium 1.9 mg/dL (1.6-2.3); Potassium 4.1 mmol/L (3.5-5.1); Sodium 139 mmol/L (137-145); Total Bilirubin 0.3 mg/dL (0.2-1.3); Total Protein 6.7 g/dL (6.3-8.2)
[2018-08-04 20:31] LABS: D-Dimer 0.24 mg/L FEU (<0.60); INR 0.9 (<1.2); Partial Thromboplastin Time 25.6 sec (22.0-30.0); Prothrombin Time 9.6 sec (9.0-12.0)
--- NOTE | 2018-08-04 20:54 | CT ---
EXAMINATION TYPE: CT angio chest DATE OF EXAM: 08/04/2018 8:46 PM COMPARISON: None HISTORY: Chest pain, difficulty breathing and cough x couple weeks. CT DLP: 257.3 mGycm Automated exposure control for dose reduction was used. CONTRAST: CTA scan of the thorax is performed with IV Contrast, patient injected with 70 mL of Isovue 370, pulm onary embolism protocol. There are 3-D post processed images.. FINDINGS: There is minimal pulmonary emphysema at the lung apices. There is no evidence of a pulmonary mass. Nikia ngs are clear of consolidation. There is no pleural effusion. Upper abdominal soft tissues are unrema rkable. Heart size is normal. There are no hilar masses. There is no mediastinal adenopathy. Thoracic aorta is intact. There is no evidence of aneurysm or dissection. Ascending aorta measures 3.5 cm. There is normal contrast opacification of the pulmonary arteries. There are no filling defects. The b bruna thorax is intact. There is minor spurring in the thoracic spine. IMPRESSION: NO EVIDENCE OF PULMONARY EMBOLISM. MINIMAL PULMONARY EMPHYSEMA.
[2018-08-04 21:05] VITALS: RESP 20
[2018-08-04] MEDS ORDERED: IPRATROPIUM-ALBUTEROL 3 ML NEB INHALATION STA (22:08)
[2018-08-04 22:20] VITALS: BP 108/64; TEMP 99
[2018-08-04 22:36] VITALS: PULSE 102
== END 2018-08-04 22:49 | disposition home or self-care (01) ==
LOC: EC 18:44
DX: J45.909 Unspecified asthma, uncomplicated (principal); J06.9 Acute upper respiratory infection, unspecified; M79.7 Fibromyalgia; G40.909 Epilepsy, unspecified, not intractable, without status epilepticus; F17.200 Nicotine dependence, unspecified, uncomplicated; Z86.73 Personal history of transient ischemic attack (TIA), and cerebral infarction without residual deficits; Z79.82 Long term (current) use of aspirin; Z79.01 Long term (current) use of anticoagulants; Z79.899 Other long term (current) drug therapy; Z91.048 Other nonmedicinal substance allergy status; Z88.0 Allergy status to penicillin; Z88.8 Allergy status to other drugs, medicaments and biological substances; Z88.3 Allergy status to other anti-infective agents
CPT/HCPCS: 36415; 94640; 94644; 93005; 85379; 83880; 80053; 83605; 83735; 84484; 85025; 85610; 85730; 71045; 71275; 99285; 96374; 96375; 96361 ×2; J2270; J2930; Q9967

== ENCOUNTER → 2024-03-23 | Outpatient (CLI) | payer MEDICARE, OTHER ==
--- NOTE | 2024-03-23 11:22 | XR ---
EXAMINATION TYPE: XR knee limited 2 views RT DATE OF EXAM: 03/23/2024 Comparison: None Clinical History: 48-year-old female M25.561 ACUTE PAIN OF RIGHT KNEE Findings: No knee joint effusion. Extensor mechanism is intact. No acute fracture, subluxation, dislocation. Impression: 2 views without acute osseous abnormality seen. [facility], , 03/23/2024 11:19 AM
== END | disposition home or self-care (01) ==
LOC: RADXRMAIN 10:07
PROVIDERS: ATTEND Internal Medicine
DX: M25.561 Pain in right knee (principal)

== ENCOUNTER → 2024-03-23 | Outpatient (CLI) | payer MEDICARE ==
--- NOTE | 2024-03-24 18:07 | MM ---
Reason for Exam: Screening (asymptomatic). Last mammogram was performed 4 year(s) and 1 month(s) ago. Patient History: Menarche at age 9. First Full-Term at age 22. Risk Values: Vanessa 5 year model risk: 0.9%. NCI Lifetime model risk: 9.2%. Prior Study Comparison: 02/08/2016 Bilateral Screening Mammogram, [facility]. Tissue Density: The breasts are heterogeneously dense, which may obscure small masses. Findings: Analyzed By CAD. Unchanged areas of asymmetric density. There is no suspicious group of microcalcifications or new suspicious mass in either breast. Overall Assessment: Benign, BI-RAD 2 Management: Screening Mammogram of both breasts in 1 year. . Patient should continue monthly self-breast exams. A clinical breast exam by your physician is recommended on an annual basis. This exam should not preclude additional follow-up of suspicious palpable abnormalities. Note on Vanessa scores and lifetime risk: 1. A Vanessa score greater than 3% is considered moderate risk. If this is the case, consider specialist referral to assess eligibility for a risk reducing agent. 2. If overall lifetime risk for the development of breast cancer is 20% or higher, the patient may qualify for future screening with alternating mammogram and breast MRI. [facility], , 03/24/2024 6:05 PM. Electronically signed and approved by: Irene Bobo M.D. Radiologist
== END | disposition home or self-care (01) ==
LOC: RADMAMWWP 09:45
PROVIDERS: ATTEND Internal Medicine
CPT/HCPCS: 77063; 77067

== ENCOUNTER 2024-09-25 20:40 | Emergency (ER) | payer MEDICARE, OTHER ==
--- NOTE | 2024-09-25 20:51 | ED ---
Seizure HPI - General Stated Complaint: Seizure Time Seen by Provider: 09/25/24 20:51 Source: RN notes reviewed, old records reviewed Mode of arrival: ambulatory Limitations: no limitations - History of Present Illness Initial Comments: This is a 49-year-old this 49-year-old female with history of seizures and is presenting with seizure activity and seizure prior to arrival. Patient is no symptoms currently. No headache chest pain shortness of abdominal pain taking all medications as prescribed no nausea vomiting or diarrhea no fevers no head injury recently. Patient feels well MD Complaint: seizure -: minutes(s) Description of Episode: loss of consciousness -: second(s) Witnessed: yes - by bystander Seizure History: known seizure disorder Place: home Possible Precipitating Event: none Associated Symptoms: denies other symptoms Treatments Prior to Arrival: none - Related Data Home Medications Medication Instructions Recorded Confirmed Albuterol Sulfate [Ventolin HFA] 2 puff INHALATION RT-QID PRN 10/21/16 08/04/18 LORazepam [Ativan] 1 mg PO DAILY PRN 07/21/17 08/04/18 Hydrocodone/Acetaminophen [[place] 1 tab PO TID 11/26/17 08/04/18 10-325] Aspirin EC [Ecotrin Low Dose] 81 mg PO DAILY 08/04/18 08/04/18 Clopidogrel [Plavix] 75 mg PO DAILY 08/04/18 08/04/18 OXcarbazepine [Trileptal] 150 mg PO BID 08/04/18 08/04/18 cloNIDine HCL [Catapres] 0.1 mg PO HS 08/04/18 08/04/18 methylPREDNISolone Dose Pack See Taper PO DIRECTED 08/04/18 08/04/18 [Medrol Dose Pack] Allergies Allergy/AdvReac Type Severity Reaction Status Date / Time adhesive Allergy Unknown Verified 09/25/24 21:01 carbetapentane Allergy Unknown Verified 09/25/24 21:01 citalopram hydrobromide Allergy Rash/Hives Verified 09/25/24 21:01 [From Celexa] diethylene glycol Allergy Unknown Verified 09/25/24 21:01 dimethicone Allergy Unknown Verified 09/25/24 21:01 Imidazole Alkylating Agents Allergy Unknown Verified 09/25/24 21:01 miconazole [From Monistat 3] Allergy Unknown Verified 09/25/24 21:01 Penicillins Allergy Rash/Hives Verified 09/25/24 21:01 polyethylene glycol Allergy Unknown Verified 09/25/24 21:01 potassium Allergy Unknown Verified 09/25/24 21:01 propylene glycol Allergy Unknown Verified 09/25/24 21:01 skin cleanser combination Allergy Unknown Verified 09/25/24 21:01 no.17 [From Monistat 3] sorbitan sesquioleate Allergy Unknown Verified 09/25/24 21:01 [From Polysorb Hydrate] tioconazole Allergy Rash/Hives Verified 09/25/24 21:01 [From Monistat 1 (tioconazole)] Review of Systems ROS Statement: Those systems with pertinent positive or pertinent negative responses have been documented in the HPI. ROS Other: All systems not noted in ROS Statement are negative. Past Medical History Past Medical History: Asthma, CVA/TIA, Fibromyalgia, Memory Impairment, Pneumonia, Seizure Disorder Additional Past Medical History / Comment(s): "RT SIDED WEAKER THAN LT AND I AVE MEMORY PROBLEMS,COMPREHENSION PROBLEMS AT TIMES EPISODES SLURRED SPEECH. CHRONIC BACK/RT LEG PAIN AND RT LEG AT TIMES CAN GIVE OUT ON HER,PAIN, UTI,PEPTIC ULCER DISEASE WHEN YOUNGER, HYPOGLYCEMIA, DDD, MIGARINES, PSEUDOSEIZURES,KIDNEYSTONES. Bulging disc in neck History of Any Multi-Drug Resistant Organisms: None Reported Past Surgical History: Tubal Ligation Additional Past Surgical History / Comment(s): RT OVARIAN CYST REMOVED 1993 Past Anesthesia/Blood Transfusion Reactions: No Reported Reaction Additional Past Anesthesia/Blood Transfusion Reaction / Comment(s): CLAUSTERPHOBIA Past Psychological History: Anxiety, Bipolar, Depression Past Alcohol Use History: None Reported Past Drug Use History: None Reported - Past Family History Sister(s) Family Medical History: Cancer Additional Family Medical History / Comment(s): Bone and breast CA Father Family Medical History: CVA/TIA, Hypertension Mother Family Medical History: AFIB, Hypertension, Seizure Disorder Additional Family Medical History / Comment(s): HEART PROBLEMS, DEPRESSION General Exam General appearance: alert, in no apparent distress Head exam: Present: atraumatic, normocephalic, normal inspection Eye exam: Present: normal appearance, PERRL, EOMI. Absent: scleral icterus, conjunctival injection, periorbital swelling ENT exam: Present: normal exam, mucous membranes moist Neck exam: Present: normal inspection. Absent: tenderness, meningismus, lymphadenopathy Respiratory exam: Present: normal lung sounds bilaterally. Absent: respiratory distress, wheezes, rales, rhonchi, stridor Cardiovascular Exam: Present: regular rate, normal rhythm, normal heart sounds. Absent: systolic murmur, diastolic murmur, rubs, gallop, clicks GI/Abdominal exam: Present: soft, normal bowel sounds. Absent: distended, tenderness, guarding, rebound, rigid Extremities exam: Present: normal inspection, full ROM, normal capillary refill. Absent: tenderness, pedal edema, joint swelling, calf tenderness Back exam: Present: normal inspection Neurological exam: Present: alert, oriented X3, CN II-XII intact Psychiatric exam: Present: normal affect, normal mood Skin exam: Present: warm, dry, intact, normal color. Absent: rash Course Vital Signs 09/25/24 21:38 Pulse Rate 70 Respiratory 18 Rate Blood Pressure 135/85 - Reevaluation(s) Reevaluation #1: Medical records reviewed Reevaluation #2: Recurrent seizure here in the ER Reevaluation #3: Patient informed of results questions answered Reevaluation #4: Was pt. sent in by a medical professional or institution (, PA, MEDICAL GENETICS DIRECTOR, urgent care, hospital, or fci...) When possible be specific @ -no Did you speak to anyone other than the patient for history (EMS, parent, family, police, friend...)? What history was obtained from this source @ -no Did you review nursing and triage notes (agree or disagree)? Why? @ -agree Are old charts reviewed (outside hosp., previous admission, EMS record, old EKG, old radiological studies, urgent care reports/EKG's, fci records)? Report findings @ -yes Differential Diagnosis (chest pain, altered mental status, abdominal pain women, abdominal pain men, vaginal bleeding, weakness, fever, dyspnea, syncope, headache, dizziness, GI bleed, back pain, seizure, CVA, palpatations, mental health, musculoskeletal)? @ -prior EKG interpreted by me (3pts min.). @ -no X-rays interpreted by me (1pt min.). @ -no CT interpreted by me (1pt min.). @ -no U/S interpreted by me (1pt. min.). @ -no What testing was considered but not performed or refused? (CT, X-rays, U/S, labs)? Why? @ -none What meds were considered but not given or refused? Why? @ -none Did you discuss the management of the patient with other professionals (professionals i.e. , PA, MEDICAL GENETICS DIRECTOR, lab, RT, psych nurse, long term care social worker, travel agent, teacher, community service officer, sample case porter)? Give summary @ -no Was smoking cessation discussed for >3mins.? @ -no Was critical care preformed (if so, how long)? @ -no Were there social determinants of health that impacted care today? How? (Homelessness, low income, unemployed, alcoholism, drug addiction, transportation, low edu. Level, literacy, decrease access to med. care, longterm, rehab)? @ -none Was there de-escalation of care discussed even if they declined (Discuss DNR or withdrawal of care, Hospice)? DNR status @ -no What co-morbidities impacted this encounter? (DM, HTN, Smoking, COPD, CAD, Cancer, CVA, ARF, Chemo, Hep., AIDS, mental health diagnosis, sleep apnea, morbi d obesity)? @ -none Was patient admitted / discharged? Hospital course, mention meds given and route, prescriptions, significant lab abnormalities, going to OR and other pertinent info. @ - 49 Female with recurrent seizure no significant seizure activity here in the ER patient is cleared for discharge Discharge recurrent seizure Undiagnosed new problem with uncertain prognosis? @ -no Drug Therapy requiring intensive monitoring for toxicity (Heparin, Nitro, Insulin, Cardizem)? @ -no Were any procedures done? @ -no Diagnosis/symptom? @ - Acute, or Chronic, or Acute on Chronic? @ -Acute Uncomplicated (without systemic symptoms) or Complicated (systemic symptoms)? @ -Complicated Side effects of treatment? @ -no Exacerbation, Progression, or Severe Exacerbation? @ -exacerbation Poses a threat to life or bodily function? How? (Chest pain, [place], NM, pneumonia, PE, COPD, DKA, ARF, appy, cholecystitis, CVA, Diverticulitis, Homicidal, Suicidal, threat to staff... and all critical care pts) @ -yes status epilepticus Reevaluation #5: Differential Seizure: Recurrent seizure disorder, febrile seizure, alcohol withdrawal, stimulants, meningitis, encephalitis, intercranial hemorrhage, intracranial tumor, stroke, eclampsia, thyrotoxicosis, hypocalcemia, hyponatremia, hypernatremia, hypomagnesemia, psychogenic, this is not meant to be an all-inclusive list. Medical Decision Making - Medical Decision Making 49 Female with recurrent seizure no significant seizure activity here in the ER patient is cleared for discharge Disposition Clinical Impression: Seizure disorder, Generalized seizure, Recurrent seizures, Stress reaction Disposition: HOME SELF-CARE Condition: Fair Instructions (If sedation given, give patient instructions): Seizure/Epilepsy Discharge Instructions & Follow-Up, Recurrent Seizures in Adults (ED) Is patient prescribed a controlled substance at d/c from ED?: No Referrals: Fabio Macedo MD [Primary Care Provider] - 1-2 days Time of Disposition: 21:30
[2024-09-25] MEDS: LORazepam 1 MG TAB PO STA (21:37)
[2024-09-25 21:40] VITALS: BP 135/85; PULSE 70; RESP 18
== END 2024-09-25 21:40 | disposition home or self-care (01) ==
LOC: EC 20:40
DX: G40.909 Epilepsy, unspecified, not intractable, without status epilepticus (principal); F43.9 Reaction to severe stress, unspecified; Z88.0 Allergy status to penicillin; Z88.3 Allergy status to other anti-infective agents; Z88.9 Allergy status to unspecified drugs, medicaments and biological substances; Z91.09 Other allergy status, other than to drugs and biological substances; Z91.018 Allergy to other foods; Z91.048 Other nonmedicinal substance allergy status; Z88.8 Allergy status to other drugs, medicaments and biological substances
CPT/HCPCS: 99283